=== PATIENT | male | born 1965 | race Caucasian/White ===

== ENCOUNTER 2017-12-14 15:50 | Inpatient (IN) | payer OTHER ==
[~2017-12-14] VITALS: Ht 177.8 cm; Wt 65.9 kg
[2017-12-14 15:57] VITALS: PULSE 68; RESP 18; TEMP 97.5; O2SAT 98
[2017-12-14 17:38] VITALS: BP 144/94; PULSE 71; RESP 16; TEMP 98.7; O2SAT 97
[2017-12-14 18:04] LABS: AUTOMATED NEUTROPHIL # 4.3 TH/MM3 (1.8-7.7); BASOPHIL # 0.1 TH/MM3 (0-0.2); EOSINOPHIL # 0.3 TH/MM3 (0-0.4); EOSINOPHIL % 3.6 % (0.0-4.0); HEMATOCRIT 38.9 % (39.0-51.0); HEMOGLOBIN 13.8 GM/DL (13.0-17.0); LYMPH % 30.6 % (9.0-44.0); LYMPHOCYTE # 2.4 TH/MM3 (1.0-4.8); MEAN CELL VOLUME 96.9 FL (80.0-100.0); MEAN CORPUSCULAR HEMOGLOBIN 34.5 PG (27.0-34.0); MEAN CORPUSCULAR HGB CONC 35.5 % (32.0-36.0); MEAN PLATELET VOLUME 7.8 FL (7.0-11.0); MONO % 8.9 % (0.0-8.0); MONOCYTE # 0.7 TH/MM3 (0-0.9); NEUT % 55.9 % (16.0-70.0); PLATELET COUNT 299 TH/MM3 (150-450); RED BLOOD COUNT 4.01 MIL/MM3 (4.50-5.90); RED CELL DISTRIBUTION WIDTH 14.2 % (11.6-17.2); WHITE BLOOD COUNT 7.8 TH/MM3 (4.0-11.0)
[2017-12-14 18:29] LABS: ALBUMIN 3.7 GM/DL (3.4-5.0); AST (GOT) 20 U/L (15-37); BICARBONATE 28.3 MEQ/L (21.0-32.0); BLOOD UREA NITROGEN 12 MG/DL (7-18); CALCIUM 8.2 MG/DL (8.5-10.1); CHLORIDE 94 MEQ/L (98-107); CREATININE 1.02 MG/DL (0.60-1.30); GLOMERULAR FILTRATION RATE 77 ML/MIN (>89); GLUCOSE,RANDOM 122 MG/DL (74-106); SODIUM (NA) 128 MEQ/L (136-145)
[2017-12-14 18:33] LABS: ALKALINE PHOSPHATASE 65 U/L (45-117); ALT (GPT) 22 U/L (12-78); TOTAL BILIRUBIN ADULT 0.3 MG/DL (0.2-1.0); TOTAL PROTEIN 6.6 GM/DL (6.4-8.2)
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
[2017-12-14 22:30] VITALS: BP 156/85; PULSE 81; RESP 17; TEMP 98.2; O2SAT 99
[2017-12-14] MEDS ORDERED: OLANZapine ODT 10 MG TAB PO ONE (23:00)
[2017-12-14] MEDS ORDERED: ACETAMINOPHEN 325 MG TAB PO PRN (23:15)
[2017-12-14] MEDS ORDERED: ALUMINUM/MAGNESIUM/SIMETH 30 ML CUP PO PRN (23:15)
[2017-12-14] MEDS ORDERED: MAGNESIUM HYDROXIDE SUSP 30 ML CUP PO PRN (23:15)
[2017-12-14] MEDS ORDERED: LORazepam 2 MG/ML VIAL IM PRN (23:15)
[2017-12-14] MEDS ORDERED: traZODone HCL 50 MG TAB PO PRN (23:15)
[2017-12-14] MEDS ORDERED: LORazepam 1 MG TAB PO PRN (23:15)
[2017-12-15 00:12] VITALS: BP 165/93; PULSE 70; RESP 18; TEMP 97; O2SAT 96
[2017-12-15 05:40] VITALS: BP 151/93; PULSE 75; RESP 18; TEMP 96.4; O2SAT 98
[2017-12-15] MEDS: NICOTINE 21 MG/24 HR PATCH T-DERMAL SCH (08:54)
[2017-12-15 09:12] LABS: AUTOMATED NEUTROPHIL # 3.2 TH/MM3 (1.8-7.7); BASOPHIL # 0.1 TH/MM3 (0-0.2); BASOPHIL % 1.3 % (0.0-2.0); EOSINOPHIL # 0.2 TH/MM3 (0-0.4); EOSINOPHIL % 3.5 % (0.0-4.0); HEMATOCRIT 42.7 % (39.0-51.0); HEMOGLOBIN 14.9 GM/DL (13.0-17.0); LYMPH % 24.4 % (9.0-44.0); LYMPHOCYTE # 1.3 TH/MM3 (1.0-4.8); MEAN CORPUSCULAR HEMOGLOBIN 33.8 PG (27.0-34.0); MEAN CORPUSCULAR HGB CONC 34.9 % (32.0-36.0); MONO % 11.4 % (0.0-8.0); MONOCYTE # 0.6 TH/MM3 (0-0.9); NEUT % 59.4 % (16.0-70.0); PLATELET COUNT 298 TH/MM3 (150-450); RED CELL DISTRIBUTION WIDTH 14.5 % (11.6-17.2); WHITE BLOOD COUNT 5.4 TH/MM3 (4.0-11.0)
[2017-12-15 09:50] LABS: BICARBONATE 26.5 MEQ/L (21.0-32.0); BLOOD UREA NITROGEN 10 MG/DL (7-18); CALCIUM 8.8 MG/DL (8.5-10.1); CHLORIDE 101 MEQ/L (98-107); CREATININE 0.81 MG/DL (0.60-1.30); GLOMERULAR FILTRATION RATE 100 ML/MIN (>89); GLUCOSE,RANDOM 108 MG/DL (74-106); MAGNESIUM 2.1 MG/DL (1.5-2.5); SODIUM (NA) 136 MEQ/L (136-145); TRIGLYCERIDES 160 MG/DL (42-150)
[2017-12-15 09:51] LABS: CHOLESTEROL 130 MG/DL (120-200); PHOSPHORUS 3.2 MG/DL (2.5-4.9)
[2017-12-15 09:54] LABS: CHOLESTEROL/ HDL RATIO 3.89 RATIO; HDL CHOLESTEROL 33.4 MG/DL (40.0-60.0); LDL CHOLESTEROL 65 MG/DL (0-99)
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
[2017-12-15 11:43] LABS: FREE T4 1.04 NG/DL (0.76-1.46)
[2017-12-15] MEDS ORDERED: diphenhydrAMINE HCL 50 MG/ML VIAL IM PRN (11:45)
[2017-12-15] MEDS ORDERED: HALOPERIDOL LACTATE 5 MG/ML AMP IM PRN (11:45)
[2017-12-15] MEDS ORDERED: diphenhydrAMINE HCL 50 MG CAP PO PRN (11:45)
[2017-12-15] MEDS ORDERED: HALOPERIDOL 5 MG TAB PO PRN (11:45)
--- NOTE | 2017-12-15 13:57 | PD.PSY.CON ---
Provisional Diagnosis Admission Date Dec 14, 2017 at 23:44 [place] I. 1. Schizophrenia, paranoid type, acute exacerbation [place] II. Deferred History of Present Illness Service Psychiatry Consult Requested By Psychiatry Reason for Consult Second opinion Primary Care Physician Unknown HPI Mr. Aviles is a 52-year-old male with a self-reported history of residual schizophrenia who presents under a [place] act initiated by psychologist patient's facility alleging aggressive behavior and threats to other residents. Reviewing the electronic medical record, I note this is patient's first visit to [facility].Patient seen and examined with nurse. Chart reviewed. Case discussed with nursing staff. On my examination today, the patient presents as paranoid and irritable. He says "it's a big cover up. Reaction after reaction after reaction." Unclear what he is referring to. He tells me "my mind switches off, now and then." Regarding the circumstances of his presentation here, the patient says "I know something stinks." He alleges that 2 "protectors " at his facility, [facility] were verbally aggressive towards him, and this is why he acted out. He reports that his sleep is poor, but he continues to eat and bathe appropriately per patient. Affect is dysphoric and irritable. Thought blocking is present. He appears internally stimulated. The patient is quite discharge focused. Remainder of the psychiatric ROS is negative. Patient is unable to tolerate extended interview and finally says "stop rushing me, I want to go home" and essentially shuts down. No physical complaints.Past psychiatric history: Patient reports a history of residual schizophrenia. He reportedly follows with a Dr. Sanchez but says that he is prescribed only Naproxen. I see no med rec from facility on patient's chart. He cannot tell me if he has a history of previous psychiatric admissions or suicide attempts. The patient is a 52-year-old man, "domiciled with friends", unemployed , single, with psychiatric history of self reported residential schizophrenia, previous psychiatric hospitalizations, no previous suicidal attempts, no psychotropics, no significant medical history, who was brought to the hospital under [place] act with alligation that the patient has been aggressive with other residents. Patient was consulted to me for second opinion. On psychiatric evaluation the patient seems to be guarded, irritable, superficially cooperative. Patient says that the reason he is here is because he has been hallucinating. He does not elaborate about the content of hallucination stating that he doesn't have memories of them. At this moment he denies suicidal and homicidal ideation, he denies visual and auditory hallucinations, but patient is visibly internally preoccupied and paranoid. Review of Systems Endocrine: DENIES: Heat/cold intolerance, Polydipsia, Polyuria, Polyphagia Eyes: DENIES: Blurred vision, Diplopia, Eye inflammation, Eye pain, Vision loss , Photosensitivity, Double Vision Ears, nose, mouth, throat: DENIES: Tinnitus, Hearing loss, Vertigo, Nasal discharge, Oral lesions, Throat pain, Hoarseness, Ear Pain, Running Nose, Epistaxis, Sinus Pain, Toothache, Odynophagia Respiratory: DENIES: Apneas, Cough, Snoring, Wheezing, Hemoptysis, Sputum production, Shortness of breath Cardiovascular: DENIES: Chest pain, Palpitations, Syncope, Dyspnea on Exertion , PND, Lower Extremity Edema, Orthopnea, Claudication Gastrointestinal: DENIES: Abdominal pain, Black stools, Bloody stools, Constipation, Diarrhea, Nausea, Vomiting, Difficulty Swallowing, Anorexia Genitourinary: DENIES: Sexual dysfunction, Urinary frequency, Urinary incontinence, Urgency, Hematuria, Dysuria, Nocturia, Penile Discharge, Testicular Pain, Testicular Swelling Musculoskeletal: DENIES: Joint pain, Muscle aches, Stiffness, Joint Swelling, Back pain, Neck pain Integumentary: DENIES: Abnormal pigmentation, Nail changes, Pruritus, Rash Hematologic/lymphatic: DENIES: Bruising, Lymphadenopathy Immunologic/allergic: DENIES: Eczema, Urticaria Neurologic: DENIES: Abnormal gait, Headache, Localized weakness, Paresthesias, Seizures, Speech Problems, Tremor, Poor Balance Psychiatric: COMPLAINS OF: Hallucinations, Delusions, DENIES: Anxiety, Confusion, Mood changes, Depression, Agitation, Suicidal Ideation, Homicidal Ideation Past Family Social History Coded Allergies: No Known Allergies (Verified Allergy, Unknown, 12/14/17) Unable to Assess (Verified Allergy, Unknown, 12/14/17) No Active Prescriptions or Reported Meds Current Medications Medications (Trade) Dose Ordered Sig/Rafat Route Start Time Stop Time Status Last Admin (Ativan) 1 mg Q6H PRN PO 12/14/17 23:15 (Ativan Inj) 1 mg Q6H PRN IM 12/14/17 23:15 (Tylenol) 650 mg Q4H PRN PO 12/14/17 23:15 (Milk Of Magnesia Liq) 30 ml DAILY PRN PO 12/14/17 23:15 (Mag-Al Plus Susp Liq) 30 ml Q6H PRN PO 12/14/17 23:15 (Habitrol 21 Mg Patch.24 Hr) 1 patch DAILY T-DERMAL 12/15/17 09:00 12/15/17 08:54 Miscellaneous Information 1 HS T-DERMAL 12/15/17 21:00 (Haldol) 5 mg Q6H PRN PO 12/15/17 11:45 (Haldol Inj) 5 mg Q6H PRN IM 12/15/17 11:45 (Benadryl) 50 mg Q6H PRN PO 12/15/17 11:45 (Benadryl Inj) 50 mg Q6H PRN IM 12/15/17 11:45 Family Psych History He denies family psychiatric history Social History Patient was born and raised in [place], he lives in [place], unemployed, single, highest level of education is has Patient's Strengths (min. 2) In a monitored setting. Verbally fluent. Physical Exam Vital Signs Vital Signs Date Time Temp Pulse Resp B/P (MAP) Pulse Ox O2 Delivery O2 Flow Rate FiO2 12/15/17 05:40 96.4 75 18 151/93 (112) 98 12/14/17 22:30 Room Air Lab Results Test 12/14/17 16:45 12/15/17 08:35 White Blood Count 7.8 TH/MM3 5.4 TH/MM3 Red Blood Count 4.01 MIL/MM3 4.40 MIL/MM3 Hemoglobin 13.8 GM/DL 14.9 GM/DL Hematocrit 38.9 % 42.7 % Mean Corpuscular Volume 96.9 FL 97.0 FL Mean Corpuscular Hemoglobin 34.5 PG 33.8 PG Mean Corpuscular Hemoglobin Concent 35.5 % 34.9 % Red Cell Distribution Width 14.2 % 14.5 % Platelet Count 299 TH/MM3 298 TH/MM3 Mean Platelet Volume 7.8 FL 7.0 FL Neutrophils (%) (Auto) 55.9 % 59.4 % Lymphocytes (%) (Auto) 30.6 % 24.4 % Monocytes (%) (Auto) 8.9 % 11.4 % Eosinophils (%) (Auto) 3.6 % 3.5 % Basophils (%) (Auto) 1.0 % 1.3 % Neutrophils # (Auto) 4.3 TH/MM3 3.2 TH/MM3 Lymphocytes # (Auto) 2.4 TH/MM3 1.3 TH/MM3 Monocytes # (Auto) 0.7 TH/MM3 0.6 TH/MM3 Eosinophils # (Auto) 0.3 TH/MM3 0.2 TH/MM3 Basophils # (Auto) 0.1 TH/MM3 0.1 TH/MM3 CBC Comment DIFF FINAL DIFF FINAL Differential Comment Blood Urea Nitrogen 12 MG/DL 10 MG/DL Creatinine 1.02 MG/DL 0.81 MG/DL Random Glucose 122 MG/DL 108 MG/DL Total Protein 6.6 GM/DL Albumin 3.7 GM/DL Calcium Level 8.2 MG/DL 8.8 MG/DL Alkaline Phosphatase 65 U/L Aspartate Amino Transf (AST/SGOT) 20 U/L Alanine Aminotransferase (ALT/SGPT) 22 U/L Total Bilirubin 0.3 MG/DL Sodium Level 128 MEQ/L 136 MEQ/L Potassium Level 3.8 MEQ/L 4.2 MEQ/L Chloride Level 94 MEQ/L 101 MEQ/L Carbon Dioxide Level 28.3 MEQ/L 26.5 MEQ/L Anion Gap 6 MEQ/L 9 MEQ/L Estimat Glomerular Filtration Rate 77 ML/MIN 100 ML/MIN Urine Opiates Screen NEG Urine Barbiturates Screen NEG Urine Amphetamines Screen NEG Urine Benzodiazepines Screen NEG Urine Cocaine Screen NEG Urine Cannabinoids Screen NEG Phosphorus Level 3.2 MG/DL Magnesium Level 2.1 MG/DL Uric Acid 4.4 MG/DL Total Creatine Kinase 137 U/L Triglycerides Level 160 MG/DL Cholesterol Level 130 MG/DL LDL Cholesterol 65 MG/DL HDL Cholesterol 33.4 MG/DL Cholesterol/HDL Ratio 3.89 RATIO Vitamin B12 Level 639 PG/ML 25-Hydroxy Vitamin D Total 18.4 ng/ML Free Thyroxine 1.04 NG/DL Thyroid Stimulating Hormone 3rd Gen 2.210 uIU/ML Rapid Plasma Reagin NON-REACTIVE Mental Status Examination Appearance: Disheveled Consciousness: Alert, Vigilant Orientation: Person, Place, Date/Time (approximate) Motor Activity: Normal gait Speech: Slow Language: Adequate Fund of Knowledge: Adequate Attention and Concentration: Easily Distracted Memory: Unremarkable Mood: Irritable, Other (Dysphoric) Affect: Irritable, Other (Dysphoric, restricted) Thought Process & Associations: Linear Thought Content: Thought blocking Hallucination Type: Other (Appears int stim) Delusion Type: Paranoid Suicidal Ideation: No Suicidal Plan: No Suicidal Intention: No Homicidal Ideation: No Homicidal Plan: No Homicidal Intention: No Insight: Fair Judgment: Impulsive Assessment & Plan Problem List: (1) Paranoid schizophrenia ICD Codes: F20.0 - Paranoid schizophrenia Assessment & Plan: Patient was seen and examined for second opinion. Chart was reviewed. I completely agree and concur with Dr. Sepulveda assessment and plan. Assessment & Plan Estimated LOS: days Request HC Surrog/Guard Advoc?: Yes Israel Forbes MD Dec 15, 2017 13:57
--- NOTE | 2017-12-15 15:04 | EKG ---
Date Performed: 12/15/2017 Time Performed: 13:13:12 PTAGE: 52 years EKG: Sinus rhythm POSSIBLE LEFT ATRIAL ENLARGEMENT BORDERLINE ECG NO PREVIOUS TRACING DOCTOR: Gilberto Garcia Interpretating Date/Time 12/15/2017 15:03:24
[2017-12-15] MEDS ORDERED: NAPROXEN 500 MG TAB PO PRN (15:45)
[2017-12-15 16:25] LABS: HEMOGLOBIN A1C 5.2 % (4.3-6.0)
[2017-12-15] MEDS: METOPROLOL SUCCINATE 50 MG EXTENDED RELEASE TAB PO SCH (16:25)
[2017-12-15 17:55] VITALS: BP 160/100; PULSE 82; RESP 18; TEMP 98.4; O2SAT 97
[2017-12-15] MEDS: risperiDONE 3 MG TAB PO SCH (21:00)
[2017-12-15] MEDS: DIVALPROEX SODIUM E.R. 500 MG TAB PO SCH (21:00)
[2017-12-15] MEDS: REMOVE OLD NICOTINE PATCH T-DERMAL SCH (21:00)
[2017-12-16 05:53] VITALS: BP 132/78; PULSE 56; RESP 16; TEMP 98.2; O2SAT 96
[2017-12-16] MEDS: METOPROLOL SUCCINATE 50 MG EXTENDED RELEASE TAB PO SCH (08:05)
[2017-12-16] MEDS: NICOTINE 21 MG/24 HR PATCH T-DERMAL SCH (08:06)
--- NOTE | 2017-12-16 12:23 | HHI.PYPN ---
Subjective Chief Complaint: Psychosis/aggression Remarks Patient seen and examined with nurse, nursing students and counselor. Chart reviewed. Eating and sleeping well per notes. Case discussed with nurse who reports no behavioral issues overnight. Case discussed with counselor, occupational therapist and recreational therapist in treatment team. On my examination today, the patient remains quite paranoid. He misinterprets my natural hand gestures during conversation as being somehow threatening. He appears internally stimulated. Makes odd comments like "that's hilarious" when nothing funny has been said and "am I supposed to be Ke?" Psychotropic medications are on hold for lack of consent. The patient at my request provides telephone number for his mother Kathryn [phone], but the nurse tells me that she has already tried this number without success. No physical complaints. Review of Systems ROS Limitations: Psychotic, Poor Historian Except as stated in HPI: all other systems reviewed are Neg Mental Status Examination Appearance: Disheveled Consciousness: Alert, Vigilant Orientation: Person, Place (at least) Motor Activity: Normal gait, Other (no motor abnormalities noted) Speech: Slow Language: Adequate Fund of Knowledge: Adequate Attention and Concentration: Easily Distracted Memory: Unremarkable Mood: Irritable, Other (Dysphoric) Affect: Irritable, Other (restricted) Thought Process & Associations: Circumstantial Thought Content: Hallucinations, Thought blocking, Delusional Hallucination Type: Other (remains internally stimulated) Delusion Type: Bizarre, Paranoid Suicidal Ideation: No Suicidal Plan: No Suicidal Intention: No Homicidal Ideation: No Homicidal Plan: No Homicidal Intention: No Insight: Poor Judgment: Poor Results Labs Item Value Date Time White Blood Count 5.4 TH/MM3 12/15/17 0835 Hemoglobin 14.9 GM/DL 12/15/17 0835 Platelet Count 298 TH/MM3 12/15/17 0835 Sodium Level 136 MEQ/L 12/15/17 0835 Potassium Level 4.2 MEQ/L 12/15/17 0835 Chloride Level 101 MEQ/L 12/15/17 0835 Carbon Dioxide Level 26.5 MEQ/L 12/15/17 0835 Blood Urea Nitrogen 10 MG/DL 12/15/17 0835 Creatinine 0.81 MG/DL 12/15/17 0835 Estimat Glomerular Filtration Rate 100 ML/MIN 12/15/17 0835 Random Glucose 108 MG/DL H 12/15/17 0835 Hemoglobin A1c 5.2 % 12/15/17 0835 Total Creatine Kinase 137 U/L 12/15/17 0835 Vitamin B12 Level 639 PG/ML 12/15/17 0835 25-Hydroxy Vitamin D Total 18.4 ng/ML L 12/15/17 0835 Free Thyroxine 1.04 NG/DL 12/15/17 0835 Thyroid Stimulating Hormone 3rd Gen 2.210 uIU/ML 12/15/17 0835 Rapid Plasma Reagin NON-REACTIVE 12/15/17 0835 Labs reviewed. CBC and CMP unremarkable. Vitamin D level somewhat low. Vitals/IOs Vital Signs Date Time Temp Pulse Resp B/P (MAP) Pulse Ox O2 Delivery O2 Flow Rate FiO2 12/16/17 05:53 98.2 56 16 132/78 (96) 96 12/14/17 22:30 Room Air Assessment & Plan Problem List: (1) Paranoid schizophrenia ICD Codes: F20.0 - Paranoid schizophrenia Assessment & Plan Add vitamin D supplement. Nurse and counselor to continue to try to identify someone to act as HCS for med consents. If no healthcare surrogate can be found , we may be forced await for guardian advocate to be appointed [place] [address] next . Continue to monitor on the high acuity unit. Continue other medications and care as ordered. Justification for Cont. Inpt. Impairment in reality construction. High risk for decompensation in less restrictive environment. Discharge Planning Pending psychiatric stabilization. Request HC Surrog/Guard Advoc?: Yes Filipe Sepulveda MD Dec 16, 2017 12:23
--- NOTE | 2017-12-16 14:02 | PD.TTN ---
Patient Problems 1. Discharge planning 2. Medication compliance 3. Knowledge deficit 4. Lack of coping skills Progress Toward Goals Provider Present: Dr. Tabitha Sepulveda Provider Input: Pt remains psychotic and paranoid. Medication regiment is on hold as there is no one to consent for his medication at this time. Nurse(s) Present: Sarah Sexton RN Nurse(s) Input: Pt remains paranoid, easily agitated and withdrawn to self. Psychiatric Counselors Present: VONNIE Khan Psych Therapist Input: Pt appears paranoid, psychotic, easily agitated and with poor insight into condition. Pt is not on medication at this time due to lack of person to consent. He presents with limited coping and emotional regulation skills. He will be evaluated for return to [facility] by facility. Group Spec/RT/OT/MEJIA Present: DAYAN Mcdonnell Group Spec/RT/OT/MEJIA Input: Pt is a new admission. Discharge Plan SMA Pt will be evaluated by [facility] for possible return. He will be linked with outpatient follow up services. Documentation Scribe: VONNIE Khan Jonathan LMHC Dec 16, 2017 14:02
[2017-12-16 18:03] VITALS: BP 157/99; PULSE 72; RESP 17; TEMP 98.7; O2SAT 97
[2017-12-16] MEDS: REMOVE OLD NICOTINE PATCH T-DERMAL SCH (20:23)
[2017-12-17 06:05] VITALS: BP 128/87; PULSE 71; RESP 18; TEMP 98.5; O2SAT 96
[2017-12-17] MEDS: CHOLECALCIFEROL (VIT D3) 1000 UNIT TAB PO SCH (08:21)
[2017-12-17] MEDS: METOPROLOL SUCCINATE 50 MG EXTENDED RELEASE TAB PO SCH (08:21)
[2017-12-17] MEDS: NICOTINE 21 MG/24 HR PATCH T-DERMAL SCH (08:21)
--- NOTE | 2017-12-17 13:27 | HHI.PYPN ---
Subjective Chief Complaint: Psychosis/aggression Remarks Patient was seen and case discussed with nursing. Patient is not on any medications now pending proxy for consent. Patient is blunted and irritable during the interview. He purposely flatulates very loudly during the interview. Denies any psychotic symptoms. Insight is poor. Mental Status Examination Appearance: Disheveled Consciousness: Alert, Vigilant Orientation: Person, Place (at least) Motor Activity: Normal gait, Other (no motor abnormalities noted) Speech: Slow Language: Adequate Fund of Knowledge: Adequate Attention and Concentration: Easily Distracted Memory: Unremarkable Mood: Irritable, Other (Dysphoric) Affect: Irritable, Blunt Thought Process & Associations: Circumstantial Thought Content: Hallucinations, Thought blocking, Delusional Hallucination Type: Other (remains internally stimulated) Delusion Type: Paranoid Suicidal Ideation: No Suicidal Plan: No Suicidal Intention: No Homicidal Ideation: No Homicidal Plan: No Homicidal Intention: No Insight: Poor Judgment: Poor Results Vitals/IOs Vital Signs Date Time Temp Pulse Resp B/P (MAP) Pulse Ox O2 Delivery O2 Flow Rate FiO2 12/17/17 06:05 98.5 71 18 128/87 (101) 96 12/14/17 22:30 Room Air Assessment & Plan Problem List: (1) Paranoid schizophrenia ICD Codes: F20.0 - Paranoid schizophrenia Assessment & Plan Continue current treatment plan Justification for Cont. Inpt. Patient will decompensate in a less restrictive setting Request HC Surrog/Guard Advoc?: Yes David Decker DO Dec 17, 2017 13:27
[2017-12-17 18:28] VITALS: BP 148/95; PULSE 77; RESP 18; TEMP 97.9; O2SAT 98
[2017-12-17] MEDS: REMOVE OLD NICOTINE PATCH T-DERMAL SCH (20:27)
[2017-12-18 05:57] VITALS: BP 124/88; PULSE 61; RESP 16; TEMP 97.1; O2SAT 98
[2017-12-18] MEDS: CHOLECALCIFEROL (VIT D3) 1000 UNIT TAB PO SCH (08:34)
[2017-12-18] MEDS: NICOTINE 21 MG/24 HR PATCH T-DERMAL SCH (08:34)
[2017-12-18] MEDS: METOPROLOL SUCCINATE 50 MG EXTENDED RELEASE TAB PO SCH (08:34)
--- NOTE | 2017-12-18 15:14 | HHI.PYPN ---
Subjective Chief Complaint: Psychosis/aggression Remarks Patient was seen and case discussed with nursing. Patient remains oppositional , childlike, quite irritable. He he reflects any questions asked of him on me does his best to insult me. Internally preoccupied. Disheveled Mental Status Examination Appearance: Disheveled Consciousness: Alert, Vigilant Orientation: Person, Place (at least) Motor Activity: Normal gait, Other (no motor abnormalities noted) Speech: Slow Language: Adequate Fund of Knowledge: Adequate Attention and Concentration: Easily Distracted Memory: Unremarkable Mood: Irritable, Other (Dysphoric) Affect: Irritable, Blunt Thought Process & Associations: Loose associations Thought Content: Hallucinations, Thought blocking, Delusional Hallucination Type: Other (remains internally stimulated) Delusion Type: Paranoid Suicidal Ideation: No Suicidal Plan: No Suicidal Intention: No Homicidal Ideation: No Homicidal Plan: No Homicidal Intention: No Insight: Poor Judgment: Poor Results Vitals/IOs Vital Signs Date Time Temp Pulse Resp B/P (MAP) Pulse Ox O2 Delivery O2 Flow Rate FiO2 12/18/17 05:57 97.1 61 16 124/88 (100) 98 12/14/17 22:30 Room Air Assessment & Plan Problem List: (1) Paranoid schizophrenia ICD Codes: F20.0 - Paranoid schizophrenia Assessment & Plan Continue current treatment plan Justification for Cont. Inpt. Patient would decompensate in a less restrictive setting Request HC Surrog/Guard Advoc?: Yes David Decker DO Dec 18, 2017 15:14
[2017-12-18 18:21] VITALS: BP 115/63; PULSE 63; RESP 16; TEMP 97.6; O2SAT 98
[2017-12-18] MEDS: REMOVE OLD NICOTINE PATCH T-DERMAL SCH (20:11)
[2017-12-19 05:52] VITALS: BP 143/94; PULSE 67; RESP 16; TEMP 96.7; O2SAT 96
[2017-12-19] MEDS: NICOTINE 21 MG/24 HR PATCH T-DERMAL SCH (08:53)
[2017-12-19] MEDS: CHOLECALCIFEROL (VIT D3) 1000 UNIT TAB PO SCH (08:53)
[2017-12-19] MEDS: METOPROLOL SUCCINATE 50 MG EXTENDED RELEASE TAB PO SCH (08:53)
--- NOTE | 2017-12-19 12:03 | HHI.PYPN ---
Subjective Chief Complaint: Psychosis/aggression Remarks Patient seen and examined with nurse. Chart reviewed. Oral intake is spotty. Patient also noted to be requesting a lot of coffee. Case discussed with nursing staff. On my exam, patient is paranoid, disheveled, malodorous. He appears internally stimulated and giggles inappropriately at times. When I ask him about internal stimulation he asks me and return "doesn't God make people [ hallucinate]?" He denies SI/HI. Psychotropics on hold for lack of consent. No physical complaints. Patient is unable to provide any other numbers for possible HCS when asked. Review of Systems ROS Limitations: Psychotic, Poor Historian Except as stated in HPI: all other systems reviewed are Neg Mental Status Examination Appearance: Disheveled Consciousness: Alert, Vigilant Orientation: Person, Place Motor Activity: Normal gait, Other (no motor abnormalities noted) Speech: Slow Language: Adequate Fund of Knowledge: Adequate Attention and Concentration: Easily Distracted Memory: Unremarkable Mood: Irritable, Other (remains somewhat dysphoric) Affect: Irritable, Blunt, Other (giggles inappropriately at times) Thought Process & Associations: Loose associations Thought Content: Hallucinations, Thought blocking, Delusional Hallucination Type: Auditory (appears internally stimulated) Delusion Type: Paranoid Suicidal Ideation: No Suicidal Plan: No Suicidal Intention: No Homicidal Ideation: No Homicidal Plan: No Homicidal Intention: No Insight: Poor Judgment: Poor Results Labs Labs reviewed. No new labs. Vitals/IOs Vital Signs Date Time Temp Pulse Resp B/P (MAP) Pulse Ox O2 Delivery O2 Flow Rate FiO2 12/19/17 05:52 96.7 67 16 143/94 (110) 96 Assessment & Plan Problem List: (1) Paranoid schizophrenia ICD Codes: F20.0 - Paranoid schizophrenia Assessment & Plan Dietitian consult given poor oral intake. I will also check an updated BMP to ensure that the patient is not experiencing electrolyte abnormalities because of fluid consumption. If there is evidence of electrolyte abnormality, may institute fluid restriction. Awaiting healthcare surrogate to provide consent for psychotropics. Continue to monitor on an inpatient unit. Continue other medications and care as ordered. Justification for Cont. Inpt. Impairment in reality construction. High risk for decompensation in less restrictive environment. Discharge Planning Pending psychiatric stabilization. Request HC Surrog/Guard Advoc?: Yes Filipe Sepulveda MD Dec 19, 2017 12:03
[2017-12-19 17:14] VITALS: BP 144/89; PULSE 71; RESP 16; TEMP 98.9; O2SAT 96
[2017-12-19] MEDS: REMOVE OLD NICOTINE PATCH T-DERMAL SCH (21:00)
[2017-12-20 05:48] VITALS: BP 113/74; PULSE 58; RESP 18; TEMP 98.5; O2SAT 100
[2017-12-20] MEDS: METOPROLOL SUCCINATE 50 MG EXTENDED RELEASE TAB PO SCH (09:00)
[2017-12-20] MEDS: CHOLECALCIFEROL (VIT D3) 1000 UNIT TAB PO SCH (09:00)
[2017-12-20] MEDS: NICOTINE 21 MG/24 HR PATCH T-DERMAL SCH (09:00)
--- NOTE | 2017-12-20 13:42 | HHI.PYPN ---
Subjective Chief Complaint: Psychosis/aggression Remarks Patient seen and examined with nurse. Chart reviewed. Patient ate 100% of lunch and dinner yesterday. Case discussed with nursing staff and in treatment team. Still no one available to provide consent for medications. On my examination today, patient remains paranoid and irritable. He refuses extended interview saying "I retain the right to remain silent, and I am exercising that Goddamn right!" He remains internally stimulated. No physical complaints. Review of Systems ROS Limitations: Psychotic, Poor Historian Except as stated in HPI: all other systems reviewed are Neg Mental Status Examination Appearance: Disheveled Consciousness: Alert, Vigilant Orientation: Person, Place Motor Activity: Other (no abnormal motor movements noted) Speech: Slow Language: Adequate Fund of Knowledge: Adequate Attention and Concentration: Easily Distracted Memory: Unremarkable Mood: Irritable, Other (dysphoric) Affect: Irritable, Other (restricted) Thought Process & Associations: Loose associations Thought Content: Hallucinations, Thought blocking, Delusional Hallucination Type: Auditory (remains internally stimulated) Delusion Type: Paranoid Suicidal Ideation: No (unreliable to contract for safety) Homicidal Ideation: No (unreliable contract for safety) Insight: Poor Judgment: Poor Results Labs labs are reviewed. Awaiting BMP ordered for today. Vitals/IOs Vital Signs Date Time Temp Pulse Resp B/P (MAP) Pulse Ox O2 Delivery O2 Flow Rate FiO2 12/20/17 05:48 98.5 58 18 113/74 (87) 100 Assessment & Plan Problem List: (1) Paranoid schizophrenia ICD Codes: F20.0 - Paranoid schizophrenia Assessment & Plan Psychotropics remain on hold for lack of anyone to provide consent. Dietitian input noted and appreciated, and I have adjusted the patient's diet per recommendations. Follow-up BMP. Continue to monitor on the inpatient unit. Continue other medications and care as ordered. Justification for Cont. Inpt. Impairment in reality construction. High risk for decompensation in less restrictive environment. Discharge Planning Plan to initiate medications after [place] is appointed a [place] [facility]. Disposition pending psychiatric stabilization after that. Request HC Surrog/Guard Advoc?: Yes Filipe Sepulveda MD Dec 20, 2017 13:42
[2017-12-20 18:46] VITALS: BP 95/58; PULSE 61; RESP 18; TEMP 98.7; O2SAT 99
[2017-12-20] MEDS: REMOVE OLD NICOTINE PATCH T-DERMAL SCH (21:00)
[2017-12-20] MEDS: OLANZapine IM 10 MG VIAL IM ONE ×2 (23:32→23:40)
[2017-12-20] MEDS ORDERED: OLANZapine IM 10 MG VIAL IM SCH (23:45)
[2017-12-21 06:16] VITALS: BP 96/56; PULSE 55; RESP 18; TEMP 97.9; O2SAT 97
[2017-12-21] MEDS: NICOTINE 21 MG/24 HR PATCH T-DERMAL SCH (09:00)
[2017-12-21] MEDS: METOPROLOL SUCCINATE 50 MG EXTENDED RELEASE TAB PO SCH (09:00)
[2017-12-21] MEDS: CHOLECALCIFEROL (VIT D3) 1000 UNIT TAB PO SCH (09:00)
--- NOTE | 2017-12-21 09:56 | HHI.PYPN ---
Subjective Chief Complaint: Psychosis/aggression Remarks Patient seen and examined with nurse. Chart reviewed. Case discussed with nursing staff. Patient required ETO yesterday evening for agitation. On my examination this morning, patient is feigning sleep. He was noted to be up and ambulating around the unit by nursing staff shortly before my interview, and shortly after the interview I find the patient up and ambulating the unit. He appears to be in no physical distress but remains internally stimulated. Review of Systems ROS Limitations: Uncooperative Other Limited ROS, patient uncooperative. Mental Status Examination Appearance: Disheveled Consciousness: Other (feigning sleep) Motor Activity: Other (no motor abnormalities noted) Insight: Poor Judgment: Poor Mental Status Exam Remarks Limited MSE as patient is feigning sleep Results Labs Item Value Date Time Sodium Level 137 MEQ/L 12/21/17 1008 Potassium Level 4.0 MEQ/L 12/21/17 1008 Chloride Level 99 MEQ/L 12/21/17 1008 Carbon Dioxide Level 32.0 MEQ/L 12/21/17 1008 Anion Gap 6 MEQ/L 12/21/17 1008 Blood Urea Nitrogen 16 MG/DL 12/21/17 1008 Creatinine 0.83 MG/DL 12/21/17 1008 Estimat Glomerular Filtration Rate 98 ML/MIN 12/21/17 1008 Random Glucose 63 MG/DL L 12/21/17 1008 Labs reviewed. BMP unremarkable except for mildly low glucose. Vitals/IOs Vital Signs Date Time Temp Pulse Resp B/P (MAP) Pulse Ox O2 Delivery O2 Flow Rate FiO2 12/21/17 06:16 97.9 55 18 96/56 (69) 97 Assessment & Plan Problem List: (1) Paranoid schizophrenia ICD Codes: F20.0 - Paranoid schizophrenia Assessment & Plan Scheduled psychotropics on hold for lack of consent. Continue to monitor on the inpatient unit. Continue other medications and care as ordered. Justification for Cont. Inpt. High risk for decompensation in less restrictive environment. Discharge Planning Pending psychiatric stabilization. [address] [facility] tomorrow. Request HC Surrog/Guard Advoc?: Yes Filipe Sepulveda MD Dec 21, 2017 09:56
[2017-12-21 12:17] LABS: CALCIUM 8.9 MG/DL (8.5-10.1); CREATININE 0.83 MG/DL (0.60-1.30)
--- NOTE | 2017-12-21 13:23 | PD.TTN ---
Patient Problems 1. Discharge planning 2. Medication compliance 3. Knowledge deficit 4. Lack of coping skills Progress Toward Goals Provider Present: Dr. Tabitha Sepulveda Provider Input: Pt remains psychotic and paranoid. Medication regiment is on hold as there is no one to consent for his medication at this time. 12/20- Pt has not been on any medication to this point as there has been no one to consent to his medications. He will attend [place] [employer] [facility] and obtain a GA. Nurse(s) Present: Sarah Sexton RN Nurse(s) Input: Pt remains paranoid, easily agitated and withdrawn to self. 12/20- Shari Fernandez RN Pt is very seclusive, demanding and psychotic with no medication at this point. Psychiatric Counselors Present: VONNIE Khan Psych Therapist Input: Pt appears paranoid, psychotic, easily agitated and with poor insight into condition. Pt is not on medication at this time due to lack of person to consent. He presents with limited coping and emotional regulation skills. He will be evaluated for return to [facility] by facility. 12/20- Pt continues to appear psychotic, bizarre, easily agitated and withdrawn. Pt is not currently on medication. He presents with limited coping and emotional regulation skills. He is poorly engaged in treatment. Pt appears with limited insight into condition and need for care. Pt will likely return to [facility] after discharge. Group Spec/RT/OT/MEJIA Present: DAYAN Mcdonnell Group Spec/RT/OT/MEJIA Input: Pt is a new admission. Discharge Plan SMA Pt will be evaluated by [facility] for possible return. He will be linked with outpatient follow up services. Documentation Scribe: VONNIE Khan Jonathan LMHC Dec 21, 2017 13:23
[2017-12-21 17:22] VITALS: BP 110/67; PULSE 62; RESP 16; TEMP 98.4; O2SAT 96
[2017-12-21] MEDS: REMOVE OLD NICOTINE PATCH T-DERMAL SCH (20:43)
[2017-12-22 05:41] VITALS: BP 116/71; PULSE 97; RESP 20; TEMP 97.9; O2SAT 97
[2017-12-22] MEDS: CHOLECALCIFEROL (VIT D3) 1000 UNIT TAB PO SCH (09:51)
[2017-12-22] MEDS: METOPROLOL SUCCINATE 50 MG EXTENDED RELEASE TAB PO SCH (09:51)
[2017-12-22] MEDS: NICOTINE 21 MG/24 HR PATCH T-DERMAL SCH (09:52)
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
[2017-12-22 17:15] VITALS: BP 104/62; PULSE 59; RESP 18; TEMP 98.7; O2SAT 99
[2017-12-22] MEDS: REMOVE OLD NICOTINE PATCH T-DERMAL SCH (19:51)
[2017-12-22] MEDS: risperiDONE 3 MG TAB PO SCH (19:52)
[2017-12-22] MEDS: DIVALPROEX SODIUM E.R. 500 MG TAB PO SCH (19:52)
[2017-12-23 06:01] VITALS: BP 106/71; PULSE 66; RESP 16; TEMP 96.4; O2SAT 97
[2017-12-23] MEDS: risperiDONE 3 MG TAB PO SCH ×2 (08:27→20:18)
[2017-12-23] MEDS: NICOTINE 21 MG/24 HR PATCH T-DERMAL SCH (08:27)
[2017-12-23] MEDS: CHOLECALCIFEROL (VIT D3) 1000 UNIT TAB PO SCH (08:27)
[2017-12-23] MEDS: METOPROLOL SUCCINATE 50 MG EXTENDED RELEASE TAB PO SCH (08:27)
--- NOTE | 2017-12-23 13:30 | HHI.PYPN ---
Subjective Chief Complaint: Psychosis/aggression Remarks Patient seen and examined with nurse. Chart reviewed. Case discussed with nursing staff. Patient noted to be somewhat bizarre and irritable. He is compliant with psychotropics which were recently resumed once a guardian advocate was appointed. Case discussed in treatment team. On my examination today, patient is secluding in his room. He remains quite paranoid and internally stimulated. He is indeed irritable. He is unable to tolerate extended interview and sends us away after only a brief time. Denies side effects from medications. No physical complaints. Review of Systems ROS Limitations: Psychotic, Poor Historian Except as stated in HPI: all other systems reviewed are Neg Mental Status Examination Appearance: Disheveled Consciousness: Alert, Vigilant Orientation: Person (at least) Motor Activity: Other (no motor abnormalities noted) Speech: Unremarkable Language: Adequate Fund of Knowledge: Inadequate Attention and Concentration: Easily Distracted Memory: Impaired (psychosis interferes) Mood: Angry Affect: Other (restricted) Thought Process & Associations: Linear (limited sample but generally linear) Thought Content: Delusional Hallucination Type: Other (remains internally stimulated) Delusion Type: Paranoid Suicidal Ideation: No (no SI voiced) Homicidal Ideation: No (no HI voiced) Insight: Poor Judgment: Poor Results Labs Labs reviewed. No new labs. Vitals/IOs Vital Signs Date Time Temp Pulse Resp B/P (MAP) Pulse Ox O2 Delivery O2 Flow Rate FiO2 12/23/17 06:01 96.4 66 16 106/71 (83) 97 Assessment & Plan Problem List: (1) Paranoid schizophrenia ICD Codes: F20.0 - Paranoid schizophrenia Assessment & Plan Continue Risperdal and Depakote as ordered. To consider long-acting injectable antipsychotic. Plan to check a Depakote and ammonia level next week. Continue to monitor on the high acuity unit. Continue other medications and care as ordered. Justification for Cont. Inpt. Impairment in reality construction. Risk for decompensation in less restrictive environment. Discharge Planning Pending psychiatric stabilization. Return to facility once stable. Request HC Surrog/Guard Advoc?: Yes Filipe Sepulveda MD Dec 23, 2017 13:30
--- NOTE | 2017-12-23 13:55 | PD.TTN ---
Patient Problems 1. Discharge planning 2. Medication compliance 3. Knowledge deficit 4. Lack of coping skills Progress Toward Goals Provider Present: Dr. Tabitha Sepulveda Provider Input: Pt remains psychotic and paranoid. Medication regiment is on hold as there is no one to consent for his medication at this time. 12/20- Pt has not been on any medication to this point as there has been no one to consent to his medications. He will attend [place] [address] and obtain a GA. 12/23- Pt has been resumed on his medication regiment including Risperdal and Depakote. He will be considered for a long acting injection. Nurse(s) Present: Sarah Sexton RN Nurse(s) Input: Pt remains paranoid, easily agitated and withdrawn to self. 12/20- Shari Fernandez RN Pt is very seclusive, demanding and psychotic with no medication at this point. 12/23- Abbie Mayorga RN Pt has been compliant with medication regiment today but remains irritable, withdrawn and psychotic. Psychiatric Counselors Present: Taras Jackson [facility] Psych Therapist Input: Pt appears paranoid, psychotic, easily agitated and with poor insight into condition. Pt is not on medication at this time due to lack of person to consent. He presents with limited coping and emotional regulation skills. He will be evaluated for return to [facility] by facility. 12/23- Pt remains psychotic, easily agitated, withdrawn, seclusive, guarded and uncooperative. Pt appears with limited coping and emotional regulation skills. Pt has limited insight into condition and need for care. He has been mainly noncompliant with medication regiment. He will return to [facility] after discharge. 12/20- Pt continues to appear psychotic, bizarre, easily agitated and withdrawn. Pt is not currently on medication. He presents with limited coping and emotional regulation skills. He is poorly engaged in treatment. Pt appears with limited insight into condition and need for care. Pt will likely return to [facility] after discharge. Group Spec/RT/OT/MEJIA Present: Keerthi Otero, DAYAN, ROBERTO Everett Group Spec/RT/OT/MEJIA Input: Pt is a new admission. 12/23- ROBERTO Everett Pt does not attend groups. Discharge Plan SMA Pt will be evaluated by [facility] for possible return. He will be linked with outpatient follow up services. Documentation Scribe: Taras Jackson Taras Braden LM Dec 23, 2017 13:55
[2017-12-23 18:44] VITALS: BP 110/80; PULSE 69; RESP 17; TEMP 97.4; O2SAT 98
[2017-12-23] MEDS: DIVALPROEX SODIUM E.R. 500 MG TAB PO SCH (20:17)
[2017-12-23] MEDS: REMOVE OLD NICOTINE PATCH T-DERMAL SCH (20:18)
[2017-12-24 06:23] VITALS: BP 110/64; PULSE 63; RESP 20; TEMP 98.4; O2SAT 100
[2017-12-24] MEDS: CHOLECALCIFEROL (VIT D3) 1000 UNIT TAB PO SCH (08:35)
[2017-12-24] MEDS: METOPROLOL SUCCINATE 50 MG EXTENDED RELEASE TAB PO SCH (08:35)
[2017-12-24] MEDS: NICOTINE 21 MG/24 HR PATCH T-DERMAL SCH (08:35)
[2017-12-24] MEDS: risperiDONE 3 MG TAB PO SCH ×2 (08:35→20:45)
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
[2017-12-24 18:19] VITALS: BP 112/69; PULSE 72; RESP 19; TEMP 97.9; O2SAT 99
[2017-12-24] MEDS: DIVALPROEX SODIUM E.R. 500 MG TAB PO SCH (20:45)
[2017-12-24] MEDS: REMOVE OLD NICOTINE PATCH T-DERMAL SCH (20:47)
[2017-12-25 06:15] VITALS: BP 101/61; PULSE 62; RESP 17; TEMP 98; O2SAT 96
[2017-12-25 06:17] VITALS: BP 127/65; PULSE 84; RESP 18; TEMP 97.3; O2SAT 97
[2017-12-25] MEDS: METOPROLOL SUCCINATE 50 MG EXTENDED RELEASE TAB PO SCH (09:14)
[2017-12-25] MEDS: risperiDONE 3 MG TAB PO SCH ×2 (09:14→21:03)
[2017-12-25] MEDS: NICOTINE 21 MG/24 HR PATCH T-DERMAL SCH (09:14)
[2017-12-25] MEDS: CHOLECALCIFEROL (VIT D3) 1000 UNIT TAB PO SCH (09:14)
--- NOTE | 2017-12-25 13:11 | HHI.PYPN ---
Subjective Chief Complaint: Psychosis/aggression Remarks Pt seen and discussed with staff. He remains withdrawn but did go out to recreational area to participate in therapeutic activity today. He has been guarded and paranoid, but no aggression. He states that he is "Waiting on the voice of God to to come for me and say this is my son!" No SI/HI Mental Status Examination Appearance: Disheveled Consciousness: Alert, Vigilant Orientation: Person (at least) Motor Activity: Other (no motor abnormalities noted) Speech: Unremarkable Language: Adequate Fund of Knowledge: Inadequate Attention and Concentration: Easily Distracted Memory: Impaired (psychosis interferes) Mood: Angry, Other (calm) Affect: Flat Thought Process & Associations: Linear Thought Content: Delusional Hallucination Type: Other (remains internally stimulated) Delusion Type: Bizarre, Paranoid, Other (mu-ism ) Suicidal Ideation: No Suicidal Plan: No Suicidal Intention: No Homicidal Ideation: No Homicidal Plan: No Homicidal Intention: No Insight: Poor Judgment: Poor Results Vitals/IOs Vital Signs Date Time Temp Pulse Resp B/P (MAP) Pulse Ox O2 Delivery O2 Flow Rate FiO2 12/25/17 06:15 98.0 62 17 101/61 (74) 96 Assessment & Plan Problem List: (1) Paranoid schizophrenia ICD Codes: F20.0 - Paranoid schizophrenia Assessment & Plan Continue current plan. Pt improving. Estimated LOS: days Justification for Cont. Inpt. impairments in reality testing, risk of decompensation Request HC Surrog/Guard Advoc?: Yes Sofy Dc MD Dec 25, 2017 13:11
[2017-12-25 15:41] VITALS: BP 114/76; PULSE 61; RESP 18; TEMP 97.6; O2SAT 96
[2017-12-25] MEDS: REMOVE OLD NICOTINE PATCH T-DERMAL SCH (21:00)
[2017-12-25] MEDS: DIVALPROEX SODIUM E.R. 500 MG TAB PO SCH (21:03)
[2017-12-26 05:57] VITALS: BP 116/68; PULSE 62; RESP 18; TEMP 97.3; O2SAT 98
[2017-12-26] MEDS: METOPROLOL SUCCINATE 50 MG EXTENDED RELEASE TAB PO SCH (09:00)
[2017-12-26] MEDS: CHOLECALCIFEROL (VIT D3) 1000 UNIT TAB PO SCH (09:02)
[2017-12-26] MEDS: risperiDONE 3 MG TAB PO SCH ×2 (09:02→21:03)
[2017-12-26] MEDS: NICOTINE 21 MG/24 HR PATCH T-DERMAL SCH (09:03)
[2017-12-26 17:06] VITALS: BP 114/80; PULSE 72; RESP 18; TEMP 97.6; O2SAT 98
--- NOTE | 2017-12-26 17:08 | HHI.PYPN ---
Subjective Chief Complaint: Psychosis/aggression Remarks Patient seen and examined with nurse. Chart reviewed. Case discussed with nursing staff. No behavioral issues overnight. On my examination today, patient is calm and cooperative. He is somewhat seclusive to room. He denies any SI or HI. Denies any AVH. No paranoid ideation noted. No side effects from medications. No physical complaints. Requesting a book to read, in particular a spy thriller. I have passed this request along to the recreation therapist. Placed call to patient's guardian advocate to discuss possibility of initiating a long-acting injectable antipsychotic. I have left generic voicemail requesting a call back. Review of Systems ROS Limitations: Poor Historian Except as stated in HPI: all other systems reviewed are Neg Mental Status Examination Appearance: Disheveled (grooming is improved versus admission) Consciousness: Alert Orientation: Person, Place Motor Activity: Other (no abnormal motor movements noted) Speech: Unremarkable Language: Adequate Fund of Knowledge: Inadequate Attention and Concentration: Other (fair) Mood: Other (calm) Affect: Flat Thought Process & Associations: Linear Thought Content: Appropriate Hallucination Type: None Delusion Type: None Suicidal Ideation: No Suicidal Plan: No Suicidal Intention: No Homicidal Ideation: No Homicidal Plan: No Homicidal Intention: No Insight: Poor (chronic condition) Judgment: Poor (chronic condition) Results Labs Labs reviewed. No new labs. Vitals/IOs Vital Signs Date Time Temp Pulse Resp B/P (MAP) Pulse Ox O2 Delivery O2 Flow Rate FiO2 12/26/17 05:57 97.3 62 18 116/68 (84) 98 Assessment & Plan Problem List: (1) Paranoid schizophrenia ICD Codes: F20.0 - Paranoid schizophrenia Assessment & Plan Continue current psychotropics as ordered. Plan to initiate long-acting injectable antipsychotic. Depakote level ordered for this evening. Continue other medications and care as ordered. Justification for Cont. Inpt. Risk for decompensation Discharge Planning Possible discharge back to facility in next day or 2. Request HC Surrog/Guard Advoc?: Yes Filipe Sepulveda MD Dec 26, 2017 17:08
[2017-12-26] MEDS: REMOVE OLD NICOTINE PATCH T-DERMAL SCH (21:00)
[2017-12-26] MEDS: DIVALPROEX SODIUM E.R. 500 MG TAB PO SCH (21:03)
[2017-12-27 05:45] VITALS: BP 104/56; PULSE 56; RESP 18; TEMP 97.5; O2SAT 97
[2017-12-27] MEDS: METOPROLOL SUCCINATE 50 MG EXTENDED RELEASE TAB PO SCH (09:00)
[2017-12-27] MEDS: NICOTINE 21 MG/24 HR PATCH T-DERMAL SCH (09:00)
[2017-12-27] MEDS: risperiDONE 3 MG TAB PO SCH (09:00)
[2017-12-27] MEDS: levOCARNitine 10% ORAL SOLN 118 ML BTL PO SCH ×2 (09:00→11:33)
[2017-12-27] MEDS: CHOLECALCIFEROL (VIT D3) 1000 UNIT TAB PO SCH (09:00)
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
[2017-12-27] MEDS ORDERED: PALI156P IM (10:48)
[2017-12-27] MEDS ORDERED: DEPA500T3 PO (10:48)
[2017-12-27] MEDS ORDERED: METO1TAB9 PO (10:48)
[2017-12-27] MEDS ORDERED: RISP3 PO (10:48)
[2017-12-27] MEDS ORDERED: CHOL1000 PO (10:48)
[2017-12-27] MEDS ORDERED: CARN330T PO (10:48)
--- NOTE | 2017-12-27 10:51 | PD.TTN ---
Patient Problems 1. Discharge planning 2. Medication compliance 3. Knowledge deficit 4. Lack of coping skills Progress Toward Goals Provider Present: Dr. Tabitha Sepulveda Provider Input: 12/27/2017 Patient is being discharged to [facility] Pt remains psychotic and paranoid. Medication regiment is on hold as there is no one to consent for his medication at this time. 12/20- Pt has not been on any medication to this point as there has been no one to consent to his medications. He will attend [place] [address] and obtain a GA. 12/23- Pt has been resumed on his medication regiment including Risperdal and Depakote. He will be considered for a long acting injection. Nurse(s) Present: Sarah Sexton RN Nurse(s) Input: Pt remains paranoid, easily agitated and withdrawn to self. 12/20- Shari Fernandez RN Pt is very seclusive, demanding and psychotic with no medication at this point. 12/23- Abbie Mayorga RN Pt has been compliant with medication regiment today but remains irritable, withdrawn and psychotic. Psychiatric Counselors Present: Taras Jackson [facility] Psych Therapist Input: 12/27/2017 Patient is being discharged to [facility] Pt appears paranoid, psychotic, easily agitated and with poor insight into condition. Pt is not on medication at this time due to lack of person to consent. He presents with limited coping and emotional regulation skills. He will be evaluated for return to [facility] by facility. 12/23- Pt remains psychotic, easily agitated, withdrawn, seclusive, guarded and uncooperative. Pt appears with limited coping and emotional regulation skills. Pt has limited insight into condition and need for care. He has been mainly noncompliant with medication regiment. He will return to [facility] after discharge. 12/20- Pt continues to appear psychotic, bizarre, easily agitated and withdrawn. Pt is not currently on medication. He presents with limited coping and emotional regulation skills. He is poorly engaged in treatment. Pt appears with limited insight into condition and need for care. Pt will likely return to [facility] after discharge. Group Spec/RT/OT/MEJIA Present: Keerthi Otero, DAYAN, ROBERTO Everett Group Spec/RT/OT/MEJIA Input: 12/27/2017 Patient is attending groups and activities Pt is a new admission. 12/23- ROBERTO Everett Pt does not attend groups. Discharge Plan [facility] Pt will be evaluated by [facility] for possible return. He will be linked with outpatient follow up services. Documentation Scribe: VONNIE Tejada Sandra LMHC Dec 27, 2017 10:51
[2017-12-27] MEDS ORDERED: PALIPERIDONE PALMITATE 234 MG/1.5 ML SYRINGE IM ONE (12:00)
[2017-12-27] MEDS ORDERED: DIVALPROEX SODIUM E.R. 500 MG TAB PO SCH (21:00)
[2017-12-27] MEDS ORDERED: DIVALPROEX SODIUM E.R. 250 MG TAB PO SCH (21:00)
== END 2017-12-27 15:10 | DRG 885 ==
LOC: NEDAMB 15:50 → NEDA 23:44 → H270 23:55
PROVIDERS: ADMIT Psychiatry & Neurology Psychiatry; ATTEND Psychiatry & Neurology Psychiatry
DX: F20.0 Paranoid schizophrenia (principal); I10 Essential (primary) hypertension
CPT/HCPCS: 80048; 80053; 80061; 80164; 80307; 82140; 82306; 82550; 82607; 83036; 83735; 84100; 84439; 84443; 84550; 85025; 86592; 93005; J2426

== ENCOUNTER 2018-07-29 19:30 | Inpatient (IN) ==
--- NOTE | 2018-07-29 19:45 | ED ---
HPI General Chief Complaint: Psychiatric Symptoms Stated Complaint: psych eval VCSO Time Seen by Provider: 07/29/18 19:39 Source: patient and police Mode of arrival: ambulatory Limitations: altered mental status History of Present Illness HPI Narrative: 52-year-old white male with a history of paranoid schizophrenia, and hypertension presents emergency department under [place] act by PD. Patient allegedly had been a client at the [facility] which is an outpatient [facility] for psychiatric patients in [facility]. The facility allegedly had closed down 3 days ago. The patient has been on the streets now here in [facility] after being dropped off per discussion with PD. The patient appeared to be confused and unable to care for himself. He had been wandering the streets. The patient was unable to render any meaningful history and could not give information regarding the date, year, or president. The patient has been off his medications. He has not been eating or drinking now for the last 3 days. The patient does not have capacity. He was initially brought to [facility] but was declined and advised to come to the ER for clearance and treatment. Past medical history: Paranoid schizophrenia, hypertension Social history: No tobacco. No alcohol. No drugs. Related Data Home Medications Medication Instructions Recorded Confirmed Unable to Obtain Home Meds 07/30/18 07/30/18 Allergies Allergy/AdvReac Type Severity Reaction Status Date / Time Unable to Assess Allergy Unknown Verified 12/14/17 21:55 No Known Allergies Allergy Unknown Uncoded 12/14/17 23:22 Review of Systems ROS Unobtainable ROS Unobtainable: unobtainable due to mental condition PMFSH Social History Social History Substance History: No History of Abuse Second Hand Smoke Exposure: No Smoking Status: Current every day smoker Tobacco Type: Cigarettes How Often Do You Have a Drink Containing Alcohol: Never Recent Travel in [facility] within the Last 8 Weeks: No Recent Out of Country Travel within the Last 8 Weeks: No Exam Narrative Exam Narrative: GENERAL: Well-nourished, well-developed patient. SKIN: Warm and dry. HEAD: Normocephalic and atraumatic. EYES: No scleral icterus. No injection or drainage. ENT: No nasal drainage noted. Mucous membranes pink. Airway patent. NECK: Supple, trachea midline. Moves head freely without obvious discomfort. CARDIOVASCULAR: Regular rate and rhythm without murmurs, gallops, or rubs. RESPIRATORY: Breath sounds equal bilaterally. No accessory muscle use. GASTROINTESTINAL: Abdomen soft, non-tender, nondistended. EXTREMITIES: No cyanosis or edema. BACK: Nontender without obvious deformity. No CVA tenderness. NEURO: Patient is alert and oriented. no sensorimotor deficits. Nonfocal. Normal speech. PSYCH: Patient has poor insight and judgment.. Course Initial Documented Vital Signs Temperature 99.9 F H 07/29/18 19:31 Pulse Rate 121 H 07/29/18 19:31 Respiratory Rate 18 07/29/18 19:31 Blood Pressure 173/103 H 07/29/18 19:31 Pulse Oximetry 99 07/29/18 19:31 Last Documented Vital Signs Temperature 98.5 F 07/30/18 18:34 Pulse Rate 84 07/30/18 18:34 Respiratory Rate 18 07/30/18 18:34 Blood Pressure 144/99 H 07/30/18 18:34 Pulse Oximetry 92 L 07/30/18 18:34 Medical Decision Making MDM Narrative Medical decision making narrative: We will obtain routine laboratory testing including CBC, chemistry, tox, EtOH, TSH, Depakote level. Patient is given metoprolol 50 mg p.o. for his blood pressure and tachycardia. I suspect his vital signs are reflexive from not being on his beta-cathie. Medical Screen Exam Complete: Yes Emergency Medical Condition: Yes Differential Diagnosis Differential Diagnosis: MDM: High Differential diagnoses: Schizophrenia, schizoaffective disorder, bipolar, anxiety, depression, adjustment reaction, mood disorder NOS, ODD, depressive disorder NOS, dementia, dementia with agitation, psychosis NOS, substance induced mood disorder, DMDD, Asperger syndrome, infection,electrolyte abnormality, malingering. Mental health screening discussed with the patient. Psychiatric screen ordered. Lab Data Result diagrams: 07/29/18 19:20 07/29/18 19:20 Lab Results 07/29/18 07/29/18 07/29/18 Range/Units 19:20 19:20 19:20 WBC 10.3 (4.0-11.0) th/mm3 RBC 4.31 L (4.50-5.90) mil/mm3 Hgb 14.3 (13.0-17.0) gm/dL Hct 40.6 (39.0-51.0) % MCV 94.2 (80.0-100.0) fL MCH 33.2 (27.0-34.0) pg MCHC 35.3 (32.0-36.0) % RDW 14.1 (11.6-17.2) % Plt Count 215 (150-450) th/mm3 MPV 7.7 (7.0-11.0) fL Neut % (Auto) 79.2 H (16.0-70.0) % Lymph % (Auto) 7.4 L (9.0-44.0) % [place] % (Auto) 12.8 H (0.0-8.0) % Eos % (Auto) 0.1 (0.0-4.0) % Baso % (Auto) 0.5 (0.0-2.0) % Neut # (Auto) 8.2 H (1.8-7.7) th/mm3 Lymph # (Auto) 0.8 L (1.0-4.8) th/mm3 [place] # (Auto) 1.3 H (0.0-0.9) th/mm3 Eos # (Auto) 0.0 (0.0-0.4) th/mm3 Baso # (Auto) 0.1 (0.0-0.2) th/mm3 WBC Differential . Differential Comment Auto diff final Sodium 130 L (136-145) meq/L Potassium 3.4 L (3.5-5.1) meq/L Chloride 95 L (98-107) meq/L Carbon Dioxide 27.9 (21.0-32.0) meq/L Anion Gap 7 (5-15) meq/L BUN 14 (7-18) mg/dL Creatinine 0.75 (0.60-1.30) mg/dL Estimated GFR Greater than 89 (>89) mL/min Random Glucose 115 H (74-106) mg/dL Calcium 8.9 (8.5-10.1) mg/dL Total Bilirubin 0.8 (0.2-1.0) mg/dL AST 241 H (15-37) U/L ALT 65 (12-78) U/L Alkaline Phosphatase 78 (45-117) U/L Total Protein 7.9 (6.4-8.2) g/dL Albumin 4.2 (3.4-5.0) g/dL TSH 2.250 (0.358-3.740) uIU/mL Urine Opiates Screen (Neg) Ur Barbiturates Screen (Neg) Valproic Acid 6 L (50-100) mcg/mL Ur Amphetamines Screen (Neg) U Benzodiazepines Scrn (Neg) Urine Cocaine Screen (Neg) U Cannabinoids Screen (Neg) Serum Alcohol Less than 3 (0-5) mg/dL 07/30/18 Range/Units 04:57 WBC (4.0-11.0) th/mm3 RBC (4.50-5.90) mil/mm3 Hgb (13.0-17.0) gm/dL Hct (39.0-51.0) % MCV (80.0-100.0) fL MCH (27.0-34.0) pg MCHC (32.0-36.0) % RDW (11.6-17.2) % Plt Count (150-450) th/mm3 MPV (7.0-11.0) fL Neut % (Auto) (16.0-70.0) % Lymph % (Auto) (9.0-44.0) % [place] % (Auto) (0.0-8.0) % Eos % (Auto) (0.0-4.0) % Baso % (Auto) (0.0-2.0) % Neut # (Auto) (1.8-7.7) th/mm3 Lymph # (Auto) (1.0-4.8) th/mm3 [place] # (Auto) (0.0-0.9) th/mm3 Eos # (Auto) (0.0-0.4) th/mm3 Baso # (Auto) (0.0-0.2) th/mm3 WBC Differential Differential Comment Sodium (136-145) meq/L Potassium (3.5-5.1) meq/L Chloride (98-107) meq/L Carbon Dioxide (21.0-32.0) meq/L Anion Gap (5-15) meq/L BUN (7-18) mg/dL Creatinine (0.60-1.30) mg/dL Estimated GFR (>89) mL/min Random Glucose (74-106) mg/dL Calcium (8.5-10.1) mg/dL Total Bilirubin (0.2-1.0) mg/dL AST (15-37) U/L ALT (12-78) U/L Alkaline Phosphatase (45-117) U/L Total Protein (6.4-8.2) g/dL Albumin (3.4-5.0) g/dL TSH (0.358-3.740) uIU/mL Urine Opiates Screen Neg (Neg) Ur Barbiturates Screen Neg (Neg) Valproic Acid (50-100) mcg/mL Ur Amphetamines Screen Neg (Neg) U Benzodiazepines Scrn Neg (Neg) Urine Cocaine Screen Neg (Neg) U Cannabinoids Screen Neg (Neg) Serum Alcohol (0-5) mg/dL Discharge Plan Discharge Disposition Patient Disposition: 01 Discharge Home Discharge Condition Condition: Stable Discharge Order Discharge Orders: Discharge Order (Routine); Ordered 07/30/18 Ordered By: Broderick Kang Physicians Team ED Provider: Donna Stephenson ED Midlevel Provider: Broderick Kang Primary Care Provider: Primary Care Elizabeth Barrett Attending Provider: Erik Yadav Discharge Interventions Interventions: ED Discharge Assessment Last Done: 07/30/18 18:23 Status ED Status: Left Department Discharge Information Discharge Date/Time: 07/30/18 18:24
[2018-07-29 20:06] LABS: Baso # (Auto) 0.1 th/mm3 (0.0-0.2); Baso % (Auto) 0.5 % (0.0-2.0); Eos % (Auto) 0.1 % (0.0-4.0); Hematocrit 40.6 % (39.0-51.0); Hemoglobin 14.3 gm/dL (13.0-17.0); Lymph # (Auto) 0.8 th/mm3 (1.0-4.8); Lymph % (Auto) 7.4 % (9.0-44.0); Mean Corpuscular HGB Conc 35.3 % (32.0-36.0); Mean Corpuscular Hemoglobin 33.2 pg (27.0-34.0); Mean Corpuscular Volume 94.2 fL (80.0-100.0); Mean Platelet Volume 7.7 fL (7.0-11.0); Mono # (Auto) 1.3 th/mm3 (0.0-0.9); Mono % (Auto) 12.8 % (0.0-8.0); Neut # (Auto) 8.2 th/mm3 (1.8-7.7); Neut % (Auto) 79.2 % (16.0-70.0); Platelet Count 215 th/mm3 (150-450); Red Blood Count 4.31 mil/mm3 (4.50-5.90); Red Cell Distribution Width 14.1 % (11.6-17.2); White Blood Count 10.3 th/mm3 (4.0-11.0)
[2018-07-29] MEDS ORDERED: Metoprolol Tartrate 100 MG Tablet PO ONE (20:31)
[2018-07-29] MEDS ORDERED: Metoprolol Tartrate 50 MG Tablet PO ONE (20:33)
[2018-07-29 20:34] LABS: Albumin 4.2 g/dL (3.4-5.0); Anion Gap 7 meq/L (5-15); Aspartate Aminotransferase 241 U/L (15-37); Blood Urea Nitrogen 14 mg/dL (7-18); Calcium 8.9 mg/dL (8.5-10.1); Carbon Dioxide 27.9 meq/L (21.0-32.0); Chloride 95 meq/L (98-107); Glomerular Filtration Rate Greater Than 89 mL/min (>89); Glucose,Random 115 mg/dL (74-106); Potassium 3.4 meq/L (3.5-5.1); Sodium 130 meq/L (136-145)
[2018-07-29 20:45] LABS: Alanine Aminotransferase 65 U/L (12-78); Alkaline Phosphatase 78 U/L (45-117); Total Protein 7.9 g/dL (6.4-8.2)
[2018-07-30 05:13] LABS: Amphetamine Screen,Urine Neg (Neg); Barbiturate Screen,Urine Neg (Neg); Cannabinoid Screen,Urine Neg (Neg); Cocaine Screen,Urine Neg (Neg); Opiate Screen,Urine Neg (Neg)
[2018-07-30] MEDS ORDERED: Aluminum/Magnesium/Simethacone Susp 30 ML UDC PO PRN (16:37)
--- NOTE | 2018-07-30 18:16 | ED ---
HPI - Psych - General Source: patient, police Mode of arrival: ambulatory Limitations: no limitations - History of Present Illness MD complaint: other (Psychosis) Onset (ago): unknown Context: significant life stressor - General Chief Complaint: Psychiatric Symptoms Stated Complaint: psych eval VCSO Time Seen by Provider: 07/29/18 19:39 - History of Present Illness HPI Narrative: This is a 52 year-old single, male who presents under a [place] Act for reportedly being unable to provide self-care. Patient is known to the psychiatric department with a previous admission from 12/14/17-12/27/17. Reviewed electronic medical record, labs, and discussed case with staff. Patient was evaluated in [facility]. He is found lying on the bed awake but refusing to interact. The only response I could get from him when asked why he was here he responded "psych problems". He refused to participate in any of the interview process beyond that. She is dressed in [facility] and is disheveled, dirty, and malodorous. A DCF worker was by earlier reporting that the family had contacted them with concern about the patient. He was a resident of [facility] which closed last week and has been reportedly walking the streets, not taking his medication, and has become psychotic. (Yari Murguia) - Related Data Home Medications Medication Instructions Recorded Confirmed Unable to Obtain Home Meds 07/30/18 07/30/18 Allergies Allergy/AdvReac Type Severity Reaction Status Date / Time Unable to Assess Allergy Unknown Verified 12/14/17 21:55 No Known Allergies Allergy Unknown Uncoded 12/14/17 23:22 Review of Systems All other systems reviewed negative except as stated in HPI PMFSH - History History Provided By: Medical Record - Medical History Medical History: Medical History (Last Reviewed 07/30/18 @ 18:55 by RICHARDSON Yost) Hypertension Schizophrenia - Tobacco History Second Hand Smoke Exposure: No Tobacco Use In Past 30 Days: Yes Smoking Status: Current every day smoker Tobacco Type: Cigarettes - Alcohol History How Often Do You Have a Drink Containing Alcohol: Never - Substance Use History Substance History: No History of Abuse - Travel History Recent Travel in the [place] Within the Last 8 Weeks: No Recent Travel Out of the Country Within the Last 8 Weeks: No - Immunization History Tetanus Immunization: <5 Years Hx Influenza Vaccine This Season: Unable to Assess Psychiatric History - Psychiatric History Psychiatric Treatment History: History of Psychiatric Treatment, History of Hospitalization in a Psychiatric Facility History of Inpatient Treatment: Yes Physical Exam - General Limitations: altered mental status General appearance: other (Refusing to speak) - Psychiatric Psychiatric exam: Present: other (Refusing to speak) Mental Status Examination Appearance: Dirty, Disheveled, Malodorous Consciousness: Other (Unable to assess) Motor Activity: Other (Ambulated about the unit without difficulty) Speech: Other (Not speaking) Language: Other (Unable to assess) Insight: Poor Judgment: Poor Initial Documented Vital Signs Temperature 99.9 F H 07/29/18 19:31 Pulse Rate 121 H 07/29/18 19:31 Respiratory Rate 18 07/29/18 19:31 Blood Pressure 173/103 H 07/29/18 19:31 Pulse Oximetry 99 07/29/18 19:31 Last Documented Vital Signs Temperature 98.3 F 07/30/18 04:13 Pulse Rate 74 07/30/18 04:13 Respiratory Rate 18 07/30/18 04:13 Blood Pressure 114/72 07/30/18 04:13 Pulse Oximetry 98 07/30/18 04:13 MDM - Psych - Diagnosis (1) Unspecified psychosis Status: Acute - Lab Data Result diagrams: 07/29/18 19:20 07/29/18 19:20 - MDM Narrative Medical decision making narrative: Given that this patient has a history of psychosis and has been reportedly walking the streets for days without his psychiatric medication, and his current presentation I am admitting him to the psychiatric inpatient unit for further evaluation and treatment as deemed necessary. Patient will be admitted under the Stephenson act. (Yari Murguia) - Lab Data Lab Results 07/29/18 07/29/18 07/29/18 Range/Units 19:20 19:20 19:20 WBC 10.3 (4.0-11.0) th/mm3 RBC 4.31 L (4.50-5.90) mil/mm3 Hgb 14.3 (13.0-17.0) gm/dL Hct 40.6 (39.0-51.0) % MCV 94.2 (80.0-100.0) fL MCH 33.2 (27.0-34.0) pg MCHC 35.3 (32.0-36.0) % RDW 14.1 (11.6-17.2) % Plt Count 215 (150-450) th/mm3 MPV 7.7 (7.0-11.0) fL Neut % (Auto) 79.2 H (16.0-70.0) % Lymph % (Auto) 7.4 L (9.0-44.0) % [place] % (Auto) 12.8 H (0.0-8.0) % Eos % (Auto) 0.1 (0.0-4.0) % Baso % (Auto) 0.5 (0.0-2.0) % Neut # (Auto) 8.2 H (1.8-7.7) th/mm3 Lymph # (Auto) 0.8 L (1.0-4.8) th/mm3 [place] # (Auto) 1.3 H (0.0-0.9) th/mm3 Eos # (Auto) 0.0 (0.0-0.4) th/mm3 Baso # (Auto) 0.1 (0.0-0.2) th/mm3 WBC Differential . Differential Comment Auto diff final Sodium 130 L (136-145) meq/L Potassium 3.4 L (3.5-5.1) meq/L Chloride 95 L (98-107) meq/L Carbon Dioxide 27.9 (21.0-32.0) meq/L Anion Gap 7 (5-15) meq/L BUN 14 (7-18) mg/dL Creatinine 0.75 (0.60-1.30) mg/dL Estimated GFR Greater than 89 (>89) mL/min Random Glucose 115 H (74-106) mg/dL Calcium 8.9 (8.5-10.1) mg/dL Total Bilirubin 0.8 (0.2-1.0) mg/dL AST 241 H (15-37) U/L ALT 65 (12-78) U/L Alkaline Phosphatase 78 (45-117) U/L Total Protein 7.9 (6.4-8.2) g/dL Albumin 4.2 (3.4-5.0) g/dL TSH 2.250 (0.358-3.740) uIU/mL Urine Opiates Screen (Neg) Ur Barbiturates Screen (Neg) Valproic Acid 6 L (50-100) mcg/mL Ur Amphetamines Screen (Neg) U Benzodiazepines Scrn (Neg) Urine Cocaine Screen (Neg) U Cannabinoids Screen (Neg) Serum Alcohol Less than 3 (0-5) mg/dL 07/30/18 Range/Units 04:57 WBC (4.0-11.0) th/mm3 RBC (4.50-5.90) mil/mm3 Hgb (13.0-17.0) gm/dL Hct (39.0-51.0) % MCV (80.0-100.0) fL MCH (27.0-34.0) pg MCHC (32.0-36.0) % RDW (11.6-17.2) % Plt Count (150-450) th/mm3 MPV (7.0-11.0) fL Neut % (Auto) (16.0-70.0) % Lymph % (Auto) (9.0-44.0) % [place] % (Auto) (0.0-8.0) % Eos % (Auto) (0.0-4.0) % Baso % (Auto) (0.0-2.0) % Neut # (Auto) (1.8-7.7) th/mm3 Lymph # (Auto) (1.0-4.8) th/mm3 [place] # (Auto) (0.0-0.9) th/mm3 Eos # (Auto) (0.0-0.4) th/mm3 Baso # (Auto) (0.0-0.2) th/mm3 WBC Differential Differential Comment Sodium (136-145) meq/L Potassium (3.5-5.1) meq/L Chloride (98-107) meq/L Carbon Dioxide (21.0-32.0) meq/L Anion Gap (5-15) meq/L BUN (7-18) mg/dL Creatinine (0.60-1.30) mg/dL Estimated GFR (>89) mL/min Random Glucose (74-106) mg/dL Calcium (8.5-10.1) mg/dL Total Bilirubin (0.2-1.0) mg/dL AST (15-37) U/L ALT (12-78) U/L Alkaline Phosphatase (45-117) U/L Total Protein (6.4-8.2) g/dL Albumin (3.4-5.0) g/dL TSH (0.358-3.740) uIU/mL Urine Opiates Screen Neg (Neg) Ur Barbiturates Screen Neg (Neg) Valproic Acid (50-100) mcg/mL Ur Amphetamines Screen Neg (Neg) U Benzodiazepines Scrn Neg (Neg) Urine Cocaine Screen Neg (Neg) U Cannabinoids Screen Neg (Neg) Serum Alcohol (0-5) mg/dL
[2018-07-30] MEDS: Senna/Docusate Sodium 8.6/50 MG Tablet PO SCH (20:23)
[2018-07-31 07:55] LABS: Anion Gap 5 meq/L (5-15); Blood Urea Nitrogen 11 mg/dL (7-18); Calcium 8.4 mg/dL (8.5-10.1); Carbon Dioxide 29.3 meq/L (21.0-32.0); Chloride 100 meq/L (98-107); Cholesterol 107 mg/dL (120-200); Glomerular Filtration Rate Greater Than 89 mL/min (>89); Glucose,Random 103 mg/dL (74-106); Sodium 134 meq/L (136-145); Triglycerides 97 mg/dL (42-150)
[2018-07-31 07:58] LABS: Chol/HDL Ratio 3.06 Ratio; HDL Cholesterol 34.9 mg/dL (40.0-60.0); LDL Cholesterol,Calculated 53 mg/dL (0-99)
--- NOTE | 2018-07-31 09:57 | P.HPPSY ---
Provisional Diagnosis Admission Date: July 30, 2018 16:37 [place] I.: Schizophrenia chronic paranoid type Competence Certification of Person's Competence To Provide Express and Informed Consent I have personally examined Juan Mckay JR, a person being served at [facility] on, July 31, 2018 0946. Express and informed consent means consent voluntarily given in writing, by a competent person, after sufficient explanation and disclosure of the subject matter involved to enable the person to make a knowing and willful decision without any element of force, fraud, deceit, duress, or other form of constraint or coercion. This person is 18 years of age or older, is not now known to be incompetent to consent to treatment with a guardian advocate, and does not have a health care surrogate or proxy currently making medical treatment decisions. I have found this person to be one of the following: [] Competent to provide express and informed consent, as defined above, for voluntary admission to this facility and is competent to provide express and informed consent for treatment. He/she has the consistent capacity to make well reasoned, willful, and knowing decisions concerning his or her medical or mental health treatment. The person fully and consistently understands the purpose of the admission for examination/placement and is fully capable of personally exercising all rights assured under [place]xxx] Incompetent to provide express and informed consent to voluntary admission , and this is incompetent to provide express and informed consent to treatment. The person must be transferred to involuntary status and a petition for a guardian advocate filed with the Circuit Court. [] Refusing to provide express and informed consent to voluntary admission but is competent to provide express and informed consent for treatment. The person must be discharged or transferred to involuntary status. Form shall be completed within 24 hours of a person's arrival at the receiving facility and filed in the clinical record of each person: 1. Admitted on a voluntary basis 2. Permitted to provide express and informed consent to his/her own treatment 3. Allowed to transfer from involuntary to voluntary status 4. Prior to permitting a person to consent to his or her own treatment after having been previously found incompetent to consent to treatment. History of Present Illness Capacity: Lacks capacity History of Present Illness: Patient is a 52-year-old white male comes here under a Stephenson act by the [facility]'s office dated 07/29/2018 at 1840 5 PM that document reviewed essentially is stating Cesilia pablo has been off his medication for the past 3 days Mr. Aguirre has also not had any food in the past 2 days. Patient seen and screened in the ED urine toxicology negative Depakote blood level of 6. At the present time patient sitting in the day room on 2500 patient seen with floor staff, chart reviewed, patient has been angry irritable insulting and profane with multiple staff members who come near him. It appears she was a long time resident of [facility] is a place in some other type facility. It appears she has not been happy there saying they have been feeling him "shit" he is also quite confused he is oriented to himself only at this time. He is vague about place and location time and situation. When asked about auditory hallucinations patient somewhat irritable there is significant thought blocking and distractibility as if he is responding to internal stimuli. When asked about suicidality he again becomes angry low denies suicidality and he denies homicidality. He is also B comments about his aunt not feeding him. He does not know if he is taking his medication. He does not know who prescribes his medication. At this time patient does not meet criteria for further inpatient psychiatric hospitalization I will do first opinion request second opinion I feel he does not have capacity thus I will ask for health care surrogate helpless treat this young man. Upon review of the EMR I sign of his last hospitalization he was prescribed Depakote ER 1750 mg at bedtime Resporal 3 mg twice daily and in Yang sustain a 156 mg. For now we will restart the Depakote at 1000 mg at bedtime, the Resporal 2 mg twice daily and will put the in Yang sustain on hold for now. Hope this be short stay we do need to research what his living situation was like otherwise placement may become problematic - Inpatient Certification I certify that the inpatient services were ordered in accordance with Medicare regulations governing the order. This includes certification that hospital inpatient services are reasonable and necessary and in the case of services not specified as inpatient-only under 42 CFR 419.22(n), that they are appropriately provided as inpatient services in accordance to with the 2-midnight benchmark under 43 CFR 412.3(e) I certify that inpatient psychiatric hospital services are medically necessary. Evaluation and treatment and/or diagnostic testing are expected to improve the patient's condition. The patient needs on a daily basis, active treatment furnished directly by or requiring the supervision of inpatient psychiatric facility personnel. Estimated Total Length of Stay (Days): 7 Plans for Post Hospital Care: Not yet determined Review of Systems unobtainable due to mental condition PMFSH - History History Provided By: Patient, Medical Record - Medical History Medical History: Medical History (Last Reviewed 07/30/18 @ 18:55 by RICHARDSON Yost) Hypertension Schizophrenia - Tobacco History Second Hand Smoke Exposure: No Tobacco Use In Past 30 Days: Yes Smoking Status: Current every day smoker Tobacco Type: Cigarettes - Alcohol History How Often Do You Have a Drink Containing Alcohol: Never - Substance Use History Substance History: No History of Abuse - Travel History Recent Travel in the [place] Within the Last 8 Weeks: No Recent Travel Out of the Country Within the Last 8 Weeks: No - Immunization History Tetanus Immunization: <5 Years Hx Influenza Vaccine This Season: Unable to Assess Quality Measures - Psychiatric History Psychological trauma history: Unknown at this time patient uncooperative Violence risk to others in the last 6 months: Unknown at this time patient uncooperative quite vigilant Violence risk to self in the last 6 months: Patient denies suicidality - Substance Abuse History Drug or alcohol use in the past 12 months: Patient denies - Patient Strengths Patient's strengths (minimum of 2): Patient verbal able access healthcare Medications and Allergies Active Medications: Active Medications Acetaminophen (Tylenol) 650 mg PO Q4H PRN PRN Reason: Pain 1-5 or Temp >101F Al Hydrox/Mg Hydrox/Simethicone (Mag-Al Plus Susp Liq) 30 ml PO Q6H PRN PRN Reason: DYSPEPSIA Diphenhydramine HCl (Benadryl) 50 mg PO HS PRN PRN Reason: INSOMNIA Senna/Docusate Sodium (Keke-Colace) 1 tab PO BID JONATHAN Last Admin: 07/30/18 20:23 Dose: 1 tab Allergies Allergy/AdvReac Type Severity Reaction Status Date / Time Unable to Assess Allergy Unknown Verified 12/14/17 21:55 No Known Allergies Allergy Unknown Uncoded 12/14/17 23:22 Home Medications Medication Instructions Recorded Confirmed Type Unable to Obtain Home Meds 07/30/18 07/30/18 History Results - Labs CBC & Chem 7: 07/29/18 19:20 07/31/18 07:00 Labs: Laboratory Results - last 24 hr 07/31/18 07:00 Sodium 134 L Potassium 4.0 Chloride 100 Carbon Dioxide 29.3 Anion Gap 5 BUN 11 Creatinine 0.68 Estimated GFR Greater than 89 Random Glucose 103 Calcium 8.4 L Triglycerides 97 Cholesterol 107 L LDL Cholesterol, Calc 53 HDL Cholesterol 34.9 L Cholesterol/HDL Ratio 3.06 Exam Vital signs: Vital Signs 07/30/18 18:34 07/31/18 06:32 Temperature 98.5 F 98.2 F Pulse Rate 84 69 Respiratory Rate 18 18 Blood Pressure 144/99 H 140/80 Pulse Oximetry 92 L 93 L Intake & Output 07/30/18 07/31/18 07/31/18 18:59 06:59 18:59 Intake Total 640 / 640 Balance 640 / 640 Weight 58.967 kg Intake: Oral 640 / 640 Other: Weight On Admission 58.967 kg Narrative: Patient seen sitting in chair in day room he is in no acute distress, he is no respiratory distress, no complaints of chest pain or abdominal pain. Patient moving all 4 extremities without difficulty while sitting down Mental Status Examination Appearance: Dirty, Disheveled, Malodorous Consciousness: Alert, Other (Unable to assess) Orientation: Person (Vaguely) Motor Activity: Other (Ambulated about the unit without difficulty) Speech: Hesitant, Slow Language: Other (Disorganized) Fund of Knowledge: Poor Attention and Concentration: Easily distracted Memory: Impaired Mood: Angry, Irritable Affect: Other (Decreased range and intensity) Thought Process & Associations: Disorganized Thought Content: Other Hallucination Type: Auditory (Appears to be responding to internal stimuli) Delusion Type: Paranoid Suicidal Ideation: No Suicidal Plan: No Suicidal Intention: No Homicidal Ideation: No Homicidal Plan: No Homicidal Intention: No Insight: Poor Judgment: Poor Assessment and Plan - Assessment (1) Paranoid type schizophrenia, chronic state Code(s): F20.0 - Paranoid schizophrenia Status: Acute - Plan Plan: Estimated LOS: [] days Patient psychotic confused and paranoid. At this time he does meet Stephenson criteria I will do first opinion request second opinion I feel he does not have capacity I will ask for health care surrogate and guardian advocate will offer medications as mentioned above with appropriate premonitions Justification for Continued Inpatient Stay: At this time patient would decompensate a place to a lower level of care Discharge Planning: To be determined Request Healthcare Surrogate/Guardian Advocate?: Yes
[2018-07-31] MEDS: Senna/Docusate Sodium 8.6/50 MG Tablet PO SCH ×2 (10:23→22:51)
[2018-07-31 11:15] LABS: Hemoglobin A1c 5.2 % (4.3-6.0)
--- NOTE | 2018-07-31 12:27 | ECG ---
Date Performed: 07/31/2018 Time Performed: 09:35:43 PTAGE: 52 years EKG: SINUS TACHYCARDIA POSSIBLE LEFT ATRIAL ENLARGEMENT ABNORMAL RHYTHM ECG Since the PREVIOUS TRACING , no significant change noted PREVIOUS TRACIN12/15/2017 13.13 DOCTOR: Aleta Lay Interpretating Date/Time 07/31/2018 12:25:07
--- NOTE | 2018-07-31 13:49 | P.CONPSY ---
Provisional Diagnosis Admission Date: July 30, 2018 16:37 [place] I.: Schizophrenia chronic paranoid type History of Present Illness Service: psychiatry Primary Care Provider: No Primary Care Physician History of Present Illness: Patient is a 52-year-old white male comes here under a Stephenson act by the [facility]'s office dated 07/29/2018 at 1840 5 PM that document reviewed essentially is stating Cesilia pablo has been off his medication for the past 3 days Mr. Aguirre has also not had any food in the past 2 days. Patient seen and screened in the ED urine toxicology negative Depakote blood level of 6. At the present time patient sitting in the day room on 2500 patient seen with floor staff, chart reviewed, patient has been angry irritable insulting and profane with multiple staff members who come near him. It appears she was a long time resident of [facility] is a place in some other type facility. It appears she has not been happy there saying they have been feeling him "shit" he is also quite confused he is oriented to himself only at this time. He is vague about place and location time and situation. When asked about auditory hallucinations patient somewhat irritable there is significant thought blocking and distractibility as if he is responding to internal stimuli. When asked about suicidality he again becomes angry low denies suicidality and he denies homicidality. He is also B comments about his aunt not feeding him. He does not know if he is taking his medication. He does not know who prescribes his medication. At this time patient does not meet criteria for further inpatient psychiatric hospitalization I will do first opinion request second opinion I feel he does not have capacity thus I will ask for health care surrogate helpless treat this young man. Upon review of the EMR I sign of his last hospitalization he was prescribed Depakote ER 1750 mg at bedtime Resporal 3 mg twice daily and in Yang sustain a 156 mg. For now we will restart the Depakote at 1000 mg at bedtime, the Resporal 2 mg twice daily and will put the in Yang sustain on hold for now. Hope this be short stay we do need to research what his living situation was like otherwise placement may become problematic The patient is a 52 year-old man, single, psychiatric history of paranoid schizophrenia, multiple psychiatric hospitalizations, who presents under a Stephenson Act for reportedly being unable to provide self-care. Reviewed electronic medical record, labs, and discussed case with staff. Patient was evaluated in J103. He is found lying on the bed awake but refusing to interact. The only response I could get from him when asked why he was here he responded "psych problems". He refused to participate in any of the interview process beyond that. She is dressed in [facility] and is disheveled, dirty, and malodorous. A DCF worker was by earlier reporting that the family had contacted them with concern about the patient. He was a resident of [facility] which closed last week and has been reportedly walking the streets, not taking his medication, and has become psychotic [facility] - History History Provided By: Patient, Medical Record - Medical History Medical History: Medical History (Last Reviewed 07/30/18 @ 18:55 by RICHARDSON Yost) Hypertension Schizophrenia - Tobacco History Second Hand Smoke Exposure: No Tobacco Use In Past 30 Days: Yes Smoking Status: Current every day smoker Tobacco Type: Cigarettes - Alcohol History How Often Do You Have a Drink Containing Alcohol: Never - Substance Use History Substance History: Unable to Obtain - Travel History Recent Travel in the [facility] Within the Last 8 Weeks: No Recent Travel Out of the Country Within the Last 8 Weeks: No - Immunization History Tetanus Immunization: <5 Years Hx Influenza Vaccine This Season: Unable to Assess Medications and Allergies Active Medications: Active Medications Acetaminophen (Tylenol) 650 mg PO Q4H PRN PRN Reason: Pain 1-5 or Temp >101F Al Hydrox/Mg Hydrox/Simethicone (Mag-Al Plus Susp Liq) 30 ml PO Q6H PRN PRN Reason: DYSPEPSIA Al Hydroxide/Mg Hydroxide (Milk Of Magnesia Liq) 30 ml PO Q12H PRN PRN Reason: Mild Constipation Diphenhydramine HCl (Benadryl) 50 mg PO HS PRN PRN Reason: INSOMNIA Divalproex Sodium (Depakote Er) 1,000 mg PO HS JONATHAN Hydroxyzine HCl (Atarax) 50 mg PO Q6H PRN PRN Reason: ANXIETY Risperidone (Risperdal) 2 mg PO BID JONATHAN Senna/Docusate Sodium (Keke-Colace) 1 tab PO BID JONATHAN Last Admin: 07/31/18 10:23 Dose: Not Given Allergies Allergy/AdvReac Type Severity Reaction Status Date / Time Unable to Assess Allergy Unknown Verified 12/14/17 21:55 No Known Allergies Allergy Unknown Uncoded 12/14/17 23:22 Home Medications Medication Instructions Recorded Confirmed Type Unable to Obtain Home Meds 07/30/18 07/30/18 History Exam Vital signs: Vital Signs 07/30/18 18:34 07/31/18 06:32 Temperature 98.5 F 98.2 F Pulse Rate 84 69 Respiratory Rate 18 18 Blood Pressure 144/99 H 140/80 Pulse Oximetry 92 L 93 L Intake & Output 07/30/18 07/31/18 07/31/18 18:59 06:59 18:59 Intake Total 640 / 640 Balance 640 / 640 Weight 58.967 kg Intake: Oral 640 / 640 Other: Weight On Admission 58.967 kg Mental Status Examination Appearance: Dirty, Disheveled, Malodorous Consciousness: Alert, Other (Unable to assess) Orientation: Person (Vaguely) Motor Activity: Other (Ambulated about the unit without difficulty) Speech: Hesitant, Slow Language: Other (Disorganized) Fund of Knowledge: Poor Attention and Concentration: Easily distracted Memory: Impaired Mood: Angry, Irritable Affect: Other (Decreased range and intensity) Thought Process & Associations: Disorganized Thought Content: Other Hallucination Type: Auditory (Appears to be responding to internal stimuli) Delusion Type: Paranoid Suicidal Ideation: No Suicidal Plan: No Suicidal Intention: No Homicidal Ideation: No Homicidal Plan: No Homicidal Intention: No Insight: Poor Judgment: Poor Assessment and Plan - Assessment (1) Paranoid type schizophrenia, chronic state Code(s): F20.0 - Paranoid schizophrenia Status: Acute - Plan Plan: I have seen and examined this patient, reviewed documentation, I agree and concur with Dr. Yadav's assessment and plan Justification for Continued Inpatient Stay: Patient will continue psychiatric admission Request Healthcare Surrogate/Guardian Advocate?: Yes
[2018-07-31] MEDS: Acetaminophen 325 MG Tablet PO PRN (20:24)
[2018-07-31] MEDS: Divalproex 500 MG ER Tablet PO SCH (21:31)
[2018-08-01] MEDS: Senna/Docusate Sodium 8.6/50 MG Tablet PO SCH ×2 (08:12→20:32)
--- NOTE | 2018-08-01 10:27 | P.PNPSY ---
Subjective Remarks: Patient seen in his room with nurse Argueta, chart reviewed, patient compliant medications. Patient remains quite irritable paranoid and angry responding to my questions with brief 1 word irritating answers. He then left the room. He is otherwise been no significant behavioral problems besides isolation and overall irritability. For now continue treatment Review of Systems All other systems reviewed negative except as stated in HPI Mental Status Examination Appearance: Dirty, Disheveled, Malodorous Consciousness: Alert, Other (Unable to assess) Orientation: Person (Vaguely) Motor Activity: Other (Ambulated about the unit without difficulty) Speech: Hesitant, Slow Language: Other (Disorganized) Fund of Knowledge: Poor Attention and Concentration: Easily distracted Memory: Impaired Mood: Angry, Irritable Affect: Other (Decreased range and intensity) Thought Process & Associations: Disorganized Thought Content: Other Hallucination Type: Auditory (Appears to be responding to internal stimuli) Delusion Type: Paranoid Suicidal Ideation: No Suicidal Plan: No Suicidal Intention: No Homicidal Ideation: No Homicidal Plan: No Homicidal Intention: No Insight: Poor Judgment: Poor Assessment and Plan - Assessment (1) Paranoid type schizophrenia, chronic state Code(s): F20.0 - Paranoid schizophrenia Status: Acute - Plan Plan: Patient remains quite psychotic paranoid vigilant and irritable Justification for Continued Inpatient Stay: At this time patient would decompensate a place to a lower level of care Discharge Planning: To be determined Request Healthcare Surrogate/Guardian Advocate?: Yes
[2018-08-01] MEDS: Divalproex 500 MG ER Tablet PO SCH (20:31)
[2018-08-02] MEDS: Senna/Docusate Sodium 8.6/50 MG Tablet PO SCH ×2 (09:09→21:21)
--- NOTE | 2018-08-02 12:27 | P.PNPSY ---
Subjective Remarks: Patient seen in day room with floor staff, patient chart reviewed, patient compliant medication, patient discussed with staff, patient alert calm cooperative with me today. He does deny voices though at times he appears to be responding to internal stimuli over did remember me from yesterday. The paranoia vigilance and irritability are not there today. He is upset because he did not receive the court hearing papers for tomorrow. However at this time patient is willing to stay voluntarily is willing to take his medications and work was with his placement issues. Thus I will lift Stephenson act allow patient to sign voluntary Review of Systems All other systems reviewed negative except as stated in HPI Mental Status Examination Appearance: Dirty, Disheveled, Malodorous Consciousness: Alert, Other (Unable to assess) Orientation: Person (Vaguely) Motor Activity: Other (Ambulated about the unit without difficulty) Speech: Hesitant (Improving), Slow (Improving) Language: Other (Improving) Fund of Knowledge: Poor Attention and Concentration: Easily distracted Memory: Impaired Mood: Angry (Improving), Irritable (Improving) Affect: Other (Decreased range and intensity) Thought Process & Associations: Disorganized Thought Content: Other Hallucination Type: Auditory (Improving) Delusion Type: Paranoid (Improving) Suicidal Ideation: No Suicidal Plan: No Suicidal Intention: No Homicidal Ideation: No Homicidal Plan: No Homicidal Intention: No Insight: Poor Judgment: Poor Assessment and Plan - Assessment (1) Paranoid type schizophrenia, chronic state Code(s): F20.0 - Paranoid schizophrenia Status: Acute - Plan Plan: Patient continues somewhat psychotic though improving, this may feel he does have capacity to sign voluntary will lift Stephenson act allow him to sign voluntary Justification for Continued Inpatient Stay: At this time patient would decompensate a place to the lower level of care Discharge Planning: To be determined Request Healthcare Surrogate/Guardian Advocate?: Yes
[2018-08-02] MEDS: Divalproex 500 MG ER Tablet PO SCH (21:21)
[2018-08-03] MEDS: Senna/Docusate Sodium 8.6/50 MG Tablet PO SCH ×2 (08:42→20:20)
--- NOTE | 2018-08-03 11:42 | P.TTN ---
- Patient Problems Problems: 1. Discharge planning 2. Medication compliance 3. Knowledge deficit 4. Lack of coping skills - Progress Toward Goals Provider Present: Dr. Elsa Yadav Provider Input: Patient has been uncooperative, decreased energy and requires further stabilization. Psychiatric Therapist Input: Aurelia- Patient remins psychtic, delusional adn is uncooperative Group Spec/RT/OT/MEJIA Present: Keerthi Otero, DAYAN Group Spec/RT/OT/MEJIA Input: Patient does not attend groups - Documentation Teaching Recipient: Patient
--- NOTE | 2018-08-03 13:13 | P.PNPSY ---
Subjective Remarks: Patient seen in day room with nurse past, chart reviewed, patient compliant medication. Patient continues calm though somewhat vigilant and mildly paranoid. Today he is also asking for a Bible which we will supply. The continues some vague auditory hallucinations also locally. To be slightly less threatening. For now continue treatment Review of Systems All other systems reviewed negative except as stated in HPI Mental Status Examination Appearance: Dirty, Disheveled, Malodorous Consciousness: Alert, Other (Unable to assess) Orientation: Person (Vaguely) Motor Activity: Other (Ambulated about the unit without difficulty) Speech: Hesitant (Improving), Slow (Improving) Language: Other (Improving) Fund of Knowledge: Poor Attention and Concentration: Easily distracted Memory: Impaired Mood: Angry (Improving), Irritable (Improving) Affect: Other (Decreased range and intensity) Thought Process & Associations: Disorganized Thought Content: Other Hallucination Type: Auditory (Improving) Delusion Type: Paranoid (Improving) Suicidal Ideation: No Suicidal Plan: No Suicidal Intention: No Homicidal Ideation: No Homicidal Plan: No Homicidal Intention: No Insight: Poor Judgment: Poor Assessment and Plan - Assessment (1) Paranoid type schizophrenia, chronic state Code(s): F20.0 - Paranoid schizophrenia Status: Acute - Plan Plan: Patient is showing some slight improvement remained psychotic with auditory hallucinations compliant medications. We will check Depakote blood level over tomorrow Justification for Continued Inpatient Stay: At this time patient would decompensate a place to a lower level of care Discharge Planning: To be determined Request Healthcare Surrogate/Guardian Advocate?: Yes
[2018-08-03] MEDS: Divalproex 500 MG ER Tablet PO SCH (20:19)
[2018-08-04] MEDS: Senna/Docusate Sodium 8.6/50 MG Tablet PO SCH ×2 (09:32→20:40)
--- NOTE | 2018-08-04 11:32 | P.PNPSY ---
Subjective Remarks: Patient seen in the day room eating lunch by himself in the corner. Chart reviewed. Patient compliant medication. Remains vigilant isolate to her times somewhat irritable with some mild thought blocking. Though is vague about any auditory perceptual abnormalities Depakote level drawn this a.m. is 49 and 1000 mg at at bedtime. Will increase at bedtime dose to 1250 mg check blood level in about 3 days Review of Systems All other systems reviewed negative except as stated in HPI Mental Status Examination Appearance: Dirty, Disheveled, Malodorous Consciousness: Alert, Other (Unable to assess) Orientation: Person (Vaguely) Motor Activity: Other (Ambulated about the unit without difficulty) Speech: Hesitant (Improving), Slow (Improving) Language: Other (Improving) Fund of Knowledge: Poor Attention and Concentration: Easily distracted Memory: Impaired Mood: Angry (Improving), Irritable (Improving) Affect: Other (Decreased range and intensity) Thought Process & Associations: Disorganized Thought Content: Other Hallucination Type: Auditory (Improving) Delusion Type: Paranoid (Improving) Suicidal Ideation: No Suicidal Plan: No Suicidal Intention: No Homicidal Ideation: No Homicidal Plan: No Homicidal Intention: No Insight: Poor Judgment: Poor Assessment and Plan - Assessment (1) Paranoid type schizophrenia, chronic state Code(s): F20.0 - Paranoid schizophrenia Status: Acute - Plan Plan: At this time patient remained psychotic, compliant medications see "adjustment above Justification for Continued Inpatient Stay: At this time patient would decompensate a place to a lower level of care Discharge Planning: To be determined Request Healthcare Surrogate/Guardian Advocate?: Yes
[2018-08-04] MEDS: Divalproex 250 MG ER Tablet PO SCH (20:39)
[2018-08-04] MEDS: Divalproex 500 MG ER Tablet PO SCH (20:40)
[2018-08-05] MEDS: Senna/Docusate Sodium 8.6/50 MG Tablet PO SCH ×2 (08:17→21:11)
--- NOTE | 2018-08-05 18:06 | P.PNPSY ---
Subjective Remarks: Reviewed electronic medical records and discussed case with staff. Follow-up was conducted in patient's room with JOSÉ Argueta present. Patient states that he is feeling "better". I note improvement in his mood from admission. He states that he slept good his appetite is been good and he denies any side effects from medication. He is actually pleasant and cooperative throughout the interview. Mental Status Examination Appearance: Dirty, Disheveled, Malodorous Consciousness: Alert, Other (Unable to assess) Orientation: Person (Vaguely) Motor Activity: Other (Ambulated about the unit without difficulty) Speech: Hesitant (Improving), Slow (Improving) Language: Other (Improving) Fund of Knowledge: Poor Attention and Concentration: Easily distracted Memory: Impaired Mood: Angry (Improving), Irritable (Improving) Affect: Other (Decreased range and intensity) Thought Process & Associations: Disorganized Thought Content: Other Hallucination Type: Auditory (Improving) Delusion Type: Paranoid (Improving) Suicidal Ideation: No Suicidal Plan: No Suicidal Intention: No Homicidal Ideation: No Homicidal Plan: No Homicidal Intention: No Insight: Poor Judgment: Poor Assessment and Plan - Assessment (1) Unspecified psychosis Code(s): F29 - Unspecified psychosis not due to a substance or known physiological condition Status: Acute - Plan Plan: Patient will be reevaluated Tuesday by the attending psychiatrist. Continue with current treatment plan. Justification for Continued Inpatient Stay: Moving this patient to a less restrictive environment would likely result in decompensation. Request Healthcare Surrogate/Guardian Advocate?: Yes
[2018-08-05] MEDS: Divalproex 500 MG ER Tablet PO SCH (21:10)
[2018-08-05] MEDS: Divalproex 250 MG ER Tablet PO SCH (21:11)
[2018-08-05] MEDS: Acetaminophen 325 MG Tablet PO PRN (21:14)
[2018-08-06] MEDS: Senna/Docusate Sodium 8.6/50 MG Tablet PO SCH ×2 (09:08→20:22)
--- NOTE | 2018-08-06 10:28 | P.PNPSY ---
Subjective Chief Complaint: Unspeficied Psychosis Remarks: Reviewed electronic medical records and discussed case with staff. Follow-up was conducted in patient's room with JOSÉ Argueta present. Patient is asking for a Nicotine patch. He states that he is feeling alot better. Sleeping and eating well. Denies any AVH. States that today his plan is to accomplish his ADLs and spend some time outside. Review of Systems All other systems reviewed negative except as stated in HPI Mental Status Examination Appearance: Appropriate Consciousness: Alert, Other (Unable to assess) Orientation: Person (Vaguely) Motor Activity: Other (Ambulated about the unit without difficulty) Speech: Hesitant (Improving), Slow (Improving) Language: Other (Improving) Fund of Knowledge: Poor Attention and Concentration: Easily distracted Memory: Impaired Mood: Appropriate Affect: Euthymic Thought Process & Associations: Disorganized Thought Content: Appropriate Hallucination Type: None Delusion Type: Paranoid (Improving) Suicidal Ideation: No Suicidal Plan: No Suicidal Intention: No Homicidal Ideation: No Homicidal Plan: No Homicidal Intention: No Insight: Fair Judgment: Poor Assessment and Plan - Assessment (1) Unspecified psychosis Code(s): F29 - Unspecified psychosis not due to a substance or known physiological condition Status: Acute - Plan Plan: Patient will be reevaluated Tuesday by the attending psychiatrist. Continue with current treatment plan. Justification for Continued Inpatient Stay: Moving patient to a less restrictive environment may result in his decompensation. Request Healthcare Surrogate/Guardian Advocate?: Yes
[2018-08-06] MEDS: Acetaminophen 325 MG Tablet PO PRN ×2 (17:51→20:21)
[2018-08-06] MEDS: Divalproex 500 MG ER Tablet PO SCH (20:21)
[2018-08-06] MEDS: Divalproex 250 MG ER Tablet PO SCH (20:22)
[2018-08-07] MEDS: Senna/Docusate Sodium 8.6/50 MG Tablet PO SCH ×2 (09:08→20:17)
[2018-08-07] MEDS: Acetaminophen 325 MG Tablet PO PRN ×2 (12:49→17:53)
--- NOTE | 2018-08-07 15:36 | P.PNPSY ---
Subjective Chief Complaint: Unspeficied Psychosis Remarks: Patient seen and sandoval somewhat vigilant and paranoid appears to be responding more to today to internal stimuli he still acknowledges voices. The stomach feel patient having's some increased auditory hallucinations we will increase his Resporal to 3 mg twice daily Review of Systems All other systems reviewed negative except as stated in HPI Mental Status Examination Appearance: Appropriate Consciousness: Alert, Other (Unable to assess) Orientation: Person (Vaguely) Motor Activity: Other (Ambulated about the unit without difficulty) Speech: Hesitant (Improving), Slow (Improving) Language: Other (Improving) Fund of Knowledge: Poor Attention and Concentration: Easily distracted Memory: Impaired Mood: Appropriate Affect: Euthymic Thought Process & Associations: Disorganized Thought Content: Appropriate Hallucination Type: Auditory (Somewhat intrusive) Delusion Type: Paranoid (Improving) Suicidal Ideation: No Suicidal Plan: No Suicidal Intention: No Homicidal Ideation: No Homicidal Plan: No Homicidal Intention: No Insight: Fair Judgment: Poor Assessment and Plan - Assessment (1) Paranoid type schizophrenia, chronic state Code(s): F20.0 - Paranoid schizophrenia Status: Acute - Plan Plan: Patient is showing some increased auditory hallucinations today and somewhat more paranoid and vigilant she medication adjustment Justification for Continued Inpatient Stay: At this time patient would decompensate a place to a lower level of care Discharge Planning: To be determined Request Healthcare Surrogate/Guardian Advocate?: Yes
[2018-08-07] MEDS: Divalproex 250 MG ER Tablet PO SCH (20:17)
[2018-08-07] MEDS: Divalproex 500 MG ER Tablet PO SCH (20:18)
[2018-08-08] MEDS: Senna/Docusate Sodium 8.6/50 MG Tablet PO SCH ×2 (09:39→20:35)
--- NOTE | 2018-08-08 12:51 | P.PNPSY ---
Subjective Chief Complaint: Unspeficied Psychosis Remarks: Patient seen in his room with floor staff, patient somewhat intense saying he is ready to be discharged. When asked about placement he became quite ambiguous. Then he said he can just go home with his mother. Patient appears to be responding to internal stimuli still we will adjust Depakote blood level to 1500 mg at at bedtime changed from the Depakote DR to Depakote ER check level in 3 days Review of Systems All other systems reviewed negative except as stated in HPI Mental Status Examination Appearance: Appropriate Consciousness: Alert, Other (Unable to assess) Orientation: Person (Vaguely) Motor Activity: Other (Ambulated about the unit without difficulty) Speech: Hesitant (Improving), Slow (Improving) Language: Other (Improving) Fund of Knowledge: Poor Attention and Concentration: Easily distracted Memory: Impaired Mood: Appropriate, Irritable Affect: Other (Slight increased range and intensity) Thought Process & Associations: Disorganized Thought Content: Appropriate Hallucination Type: Auditory (Somewhat intrusive) Delusion Type: Paranoid (Improving) Suicidal Ideation: No Suicidal Plan: No Suicidal Intention: No Homicidal Ideation: No Homicidal Plan: No Homicidal Intention: No Insight: Fair Judgment: Poor Assessment and Plan - Assessment (1) Paranoid type schizophrenia, chronic state Code(s): F20.0 - Paranoid schizophrenia Status: Acute - Plan Plan: Patient somewhat vigilant and psychotic today she medication adjustment above for now continue treatment. We will have counselor attempt to discover appropriate placement Justification for Continued Inpatient Stay: At this time patient would decompensate a place to a lower level of care Discharge Planning: To be determined Request Healthcare Surrogate/Guardian Advocate?: Yes
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
[2018-08-08] MEDS: Lisinopril 10 MG Tablet PO SCH (18:32)
[2018-08-08] MEDS: Divalproex 500 MG ER Tablet PO SCH (20:35)
[2018-08-09] MEDS: Senna/Docusate Sodium 8.6/50 MG Tablet PO SCH ×2 (09:14→20:42)
[2018-08-09] MEDS: Lisinopril 10 MG Tablet PO SCH (09:14)
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
[2018-08-09] MEDS: Acetaminophen 325 MG Tablet PO PRN (12:48)
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
[2018-08-09] MEDS: Divalproex 500 MG ER Tablet PO SCH (20:41)
[2018-08-10] MEDS: Senna/Docusate Sodium 8.6/50 MG Tablet PO SCH ×3 (08:36→20:52)
[2018-08-10] MEDS: Lisinopril 10 MG Tablet PO SCH (08:36)
[2018-08-10] MEDS: Acetaminophen 325 MG Tablet PO PRN ×3 (12:06→23:08)
--- NOTE | 2018-08-10 12:36 | P.PNPSY ---
Subjective Chief Complaint: Unspeficied Psychosis Remarks: Patient seen in day room with nurse Hernandez, chart reviewed, patient compliant medications. Patient somewhat withdrawn today, denies voices but today appears to be responding to internal stimuli. Remains cooperative continues to allow us to help him find an appropriate placement Review of Systems All other systems reviewed negative except as stated in HPI Mental Status Examination Appearance: Appropriate Consciousness: Alert, Other (Unable to assess) Orientation: Person (Vaguely) Motor Activity: Other (Ambulated about the unit without difficulty) Speech: Hesitant (Improving), Slow (Improving) Language: Other (Improving) Fund of Knowledge: Poor Attention and Concentration: Easily distracted Memory: Impaired Mood: Appropriate, Angry, Irritable Affect: Other (Slight increased range and intensity) Thought Process & Associations: Disorganized Thought Content: Appropriate Hallucination Type: Auditory (Somewhat intrusive) Delusion Type: Paranoid (Improving) Suicidal Ideation: No Suicidal Plan: No Suicidal Intention: No Homicidal Ideation: No Homicidal Plan: No Homicidal Intention: No Insight: Fair Judgment: Poor Assessment and Plan - Assessment (1) Paranoid type schizophrenia, chronic state Code(s): F20.0 - Paranoid schizophrenia Status: Acute - Plan Plan: Patient somewhat withdrawn today I saw remains vigilant appears to be responding to internal stimuli Justification for Continued Inpatient Stay: At this time patient would decompensate a place to a lower level of care Discharge Planning: To be determined Request Healthcare Surrogate/Guardian Advocate?: Yes
[2018-08-10] MEDS: Divalproex 500 MG ER Tablet PO SCH (20:52)
[2018-08-11] MEDS: Lisinopril 10 MG Tablet PO SCH (08:15)
[2018-08-11] MEDS: Senna/Docusate Sodium 8.6/50 MG Tablet PO SCH ×2 (08:16→20:42)
--- NOTE | 2018-08-11 15:30 | P.PNPSY ---
Subjective Chief Complaint: Unspeficied Psychosis Remarks: Patient seen in day room with floor staff, chart reviewed, patient is more angry and paranoid vigilant today now stating the little black people living in [facility]. At wondering what we can see them. Patient has been compliant with his medications. And no other behavioral problem. We will increase scheduled Resporal to 4 mg twice daily Review of Systems All other systems reviewed negative except as stated in HPI Mental Status Examination Appearance: Appropriate Consciousness: Alert, Other (Unable to assess) Orientation: Person (Vaguely) Motor Activity: Other (Ambulated about the unit without difficulty) Speech: Pressured, Rapid Language: Other (Improving) Fund of Knowledge: Poor Attention and Concentration: Easily distracted Memory: Impaired Mood: Angry, Oppositional, Irritable Affect: Other (Slight increased range and intensity) Thought Process & Associations: Disorganized Thought Content: Bizarre thinking Hallucination Type: Auditory (Somewhat intrusive) Delusion Type: Paranoid (Improving) Suicidal Ideation: No Suicidal Plan: No Suicidal Intention: No Homicidal Ideation: No Homicidal Plan: No Homicidal Intention: No Insight: Fair Judgment: Poor Assessment and Plan - Assessment (1) Paranoid type schizophrenia, chronic state Code(s): F20.0 - Paranoid schizophrenia Status: Acute - Plan Plan: Patient showing increased signs of psychosis today with significant paranoid delusions C medication adjustment above Justification for Continued Inpatient Stay: This time patient would decompensate a place to a lower level of care Discharge Planning: To be determined Request Healthcare Surrogate/Guardian Advocate?: Yes
[2018-08-11] MEDS: Divalproex 500 MG ER Tablet PO SCH (20:42)
[2018-08-11] MEDS: Acetaminophen 325 MG Tablet PO PRN (20:43)
[2018-08-12] MEDS: Lisinopril 10 MG Tablet PO SCH (09:03)
[2018-08-12] MEDS: Senna/Docusate Sodium 8.6/50 MG Tablet PO SCH ×2 (09:04→21:38)
[2018-08-12] MEDS: Acetaminophen 325 MG Tablet PO PRN (11:04)
--- NOTE | 2018-08-12 15:21 | P.PNPSY ---
Subjective Chief Complaint: Unspeficied Psychosis Remarks: Reviewed electronic medical records and discussed case with staff. Follow-up was conducted in the hallway with JOSÉ Felix present. Patient reports he has been sleeping and eating well. When asked how his mood is today he responds, "blank I am ruled by blankness". He still has a flat affect but denies any side effects from the medication. He goes on to state, "it is the way to the anointing". He then states, "the naheed in the ski mask is been bothering me he is not an adult." Mental Status Examination Appearance: Appropriate Consciousness: Alert, Other (Unable to assess) Orientation: Person (Vaguely) Motor Activity: Other (Ambulated about the unit without difficulty) Speech: Pressured, Rapid Language: Other (Improving) Fund of Knowledge: Poor Attention and Concentration: Easily distracted Memory: Impaired Mood: Angry, Oppositional, Irritable Affect: Other (Slight increased range and intensity) Thought Process & Associations: Disorganized Thought Content: Bizarre thinking Hallucination Type: Auditory (Somewhat intrusive) Delusion Type: Paranoid (Improving) Suicidal Ideation: No Suicidal Plan: No Suicidal Intention: No Homicidal Ideation: No Homicidal Plan: No Homicidal Intention: No Insight: Fair Judgment: Poor Assessment and Plan - Assessment (1) Unspecified psychosis Code(s): F29 - Unspecified psychosis not due to a substance or known physiological condition Status: Acute - Plan Plan: Patient will be reevaluated Tuesday by the attending psychiatrist. Continue with current treatment plan. Discharge planning is in progress. Justification for Continued Inpatient Stay: Moving this patient to a less restrictive environment would likely result in decompensation. Request Healthcare Surrogate/Guardian Advocate?: Yes
[2018-08-12] MEDS: Divalproex 500 MG ER Tablet PO SCH (21:38)
[2018-08-13] MEDS: Lisinopril 10 MG Tablet PO SCH (08:55)
[2018-08-13] MEDS: Senna/Docusate Sodium 8.6/50 MG Tablet PO SCH ×2 (08:55→21:00)
--- NOTE | 2018-08-13 15:29 | P.PNPSY ---
Subjective Chief Complaint: Unspeficied Psychosis Remarks: Reviewed electronic medical records and discussed case with staff. Follow-up was conducted in patient's room with JOSÉ Carroll. Patient is very psychotic and screaming. He was accusing staff of trying to hurt him and felt that people were after him. He agreed to take his morning medications. He started to escalate so he was relocated to 2700 and he did take his medications. Later in the morning he was quiet and appeared to have settled down. He was not a behavioral problem, he appeared to be internally stimulated and psychotic. Review of Systems All other systems reviewed negative except as stated in HPI Mental Status Examination Appearance: Appropriate Consciousness: Alert Orientation: Person Motor Activity: Other (Ambulated about the unit without difficulty) Speech: Pressured, Rapid Language: Other (Improving) Fund of Knowledge: Poor Attention and Concentration: Easily distracted Memory: Impaired Mood: Angry, Oppositional, Irritable Affect: Other (Slight increased range and intensity) Thought Process & Associations: Disorganized Thought Content: Bizarre thinking Hallucination Type: Auditory (Somewhat intrusive) Delusion Type: Paranoid (Improving) Suicidal Ideation: No Suicidal Plan: No Suicidal Intention: No Homicidal Ideation: No Homicidal Plan: No Homicidal Intention: No Insight: Fair Judgment: Poor Assessment and Plan - Assessment (1) Unspecified psychosis Code(s): F29 - Unspecified psychosis not due to a substance or known physiological condition Status: Acute - Plan Plan: Patient will be reevaluated Tuesday by the attending psychiatrist. Continue with current treatment plan. Discharge planning is in progress. Justification for Continued Inpatient Stay: This patient was transferred from 2600 to 2700 to manage his care. He was extremely psychotic this morning and was unable to focus. He required movement to a higher level of care to manage his psychosis. Request Healthcare Surrogate/Guardian Advocate?: Yes
[2018-08-13] MEDS: Acetaminophen 325 MG Tablet PO PRN (18:00)
[2018-08-13] MEDS: Divalproex 500 MG ER Tablet PO SCH (21:00)
[2018-08-14] MEDS: Senna/Docusate Sodium 8.6/50 MG Tablet PO SCH ×2 (08:38→21:43)
[2018-08-14] MEDS: Lisinopril 10 MG Tablet PO SCH (08:38)
[2018-08-14] MEDS: Acetaminophen 325 MG Tablet PO PRN ×2 (09:15→18:00)
--- NOTE | 2018-08-14 13:13 | P.TTN ---
- Patient Problems Problems: 1. Discharge planning 2. Medication compliance 3. Knowledge deficit 4. Lack of coping skills - Progress Toward Goals Provider Present: Dr. Elsa Yadav Provider Input: 08/09 patient on medications now, still psychotic. 08/04Patient has been uncooperative, decreased energy and requires further stabilization. needs stabilization and placement as he was displaced from [place] and ended up in [facility]- family is assisting with an [facility] and want referral faxed. 917 patient needs further stabilization, Dr. Yadav is titrating medications, patient attends select groups, mostly isolates to himself and is seclusive to his room. Psychiatric Counselors Present: Nita Armendariz LCSW (08/07 needs stabilization and placement as he was displaced from [place] and ended up in [facility]- family is assisting with an [facility] and want referral faxed. Will fax once finding another fdc ), Toro Medel Jr., [facility] (08-14-2018 patient is displaced from [facility] and in need of placement. Patient new to 2700, disposal plan unclear at this time.) Psychiatric Therapist Input: 08/09 needs [facility], was displaced and unable to be stable out in community by self, mother and brother have found an [facility] , faxed referral, awaiting answer. Aurelia- Patient remins psychtic, delusional adn is uncooperative Group Spec/RT/OT/MEJIA Present: Keerthi Otero, DAYAN Group Spec/RT/OT/MEJIA Input: 08/09 still no group attendance- yells often, upset and aggitated. Patient does not attend groups. 08-14-2018 patient attends select groups but is mostly seclusive to his room. - Documentation Teaching Recipient: Patient
--- NOTE | 2018-08-14 15:28 | P.PNPSY ---
Subjective Chief Complaint: Unspeficied Psychosis Remarks: Patient seen in his room with nurse Yari, patient initially laying quietly in bed though as we talked became more more angry yelling at all the "children" out there and how the "N" word and doctors got him in here. Patient has been compliant with medications. He is on a total of 8 mg Resporal daily at this time we will increase his Depakote to 1750 mg daily continue the addition of in Yang sustain a to the regimen Review of Systems All other systems reviewed negative except as stated in HPI Mental Status Examination Appearance: Appropriate Consciousness: Alert Orientation: Person Motor Activity: Other (Ambulated about the unit without difficulty) Speech: Pressured, Rapid Language: Other (Improving) Fund of Knowledge: Poor Attention and Concentration: Easily distracted Memory: Impaired Mood: Angry, Oppositional, Irritable Affect: Other (Marked increased range and intensity) Thought Process & Associations: Disorganized Thought Content: Bizarre thinking Hallucination Type: Auditory (Somewhat intrusive) Delusion Type: Paranoid (Improving) Suicidal Ideation: No Suicidal Plan: No Suicidal Intention: No Homicidal Ideation: No Homicidal Plan: No Homicidal Intention: No Insight: Fair Judgment: Poor Assessment and Plan - Assessment (1) Paranoid type schizophrenia, chronic state Code(s): F20.0 - Paranoid schizophrenia Status: Acute - Plan Plan: Patient is showing increased psychosis delusions and paranoia. She medication adjustment above Justification for Continued Inpatient Stay: At this time patient would decompensate a place to a lower level of care Discharge Planning: To be determined Request Healthcare Surrogate/Guardian Advocate?: Yes
[2018-08-14] MEDS: Divalproex 500 MG ER Tablet PO SCH (21:42)
[2018-08-14] MEDS: Divalproex 250 MG ER Tablet PO SCH (21:43)
[2018-08-15] MEDS: Senna/Docusate Sodium 8.6/50 MG Tablet PO SCH ×2 (08:15→20:15)
[2018-08-15] MEDS: Lisinopril 10 MG Tablet PO SCH (08:15)
[2018-08-15] MEDS: Acetaminophen 325 MG Tablet PO PRN (11:17)
--- NOTE | 2018-08-15 15:38 | P.PNPSY ---
Subjective Chief Complaint: Unspeficied Psychosis Remarks: Patient seen today in day room with nurse Jacey. Chart reviewed. Patient compliant medication. Patient much calmer today with increased focus his anger paranoia have significantly diminished he is alert oriented with good eye contact. He is asking when he can go home. He denies voices at the present time. For now continue treatment Review of Systems All other systems reviewed negative except as stated in HPI Mental Status Examination Appearance: Appropriate Consciousness: Alert Orientation: Person Motor Activity: Other (Ambulated about the unit without difficulty) Speech: Pressured (Calmer), Rapid (Calmer) Language: Other (Improving) Fund of Knowledge: Poor Attention and Concentration: Easily distracted Memory: Impaired Mood: Other (Calmer and less angry) Affect: Other (Range and intensity calmer) Thought Process & Associations: Disorganized Thought Content: Bizarre thinking Hallucination Type: Auditory (Somewhat intrusive) Delusion Type: Paranoid (Improving) Suicidal Ideation: No Suicidal Plan: No Suicidal Intention: No Homicidal Ideation: No Homicidal Plan: No Homicidal Intention: No Insight: Fair Judgment: Poor Assessment and Plan - Assessment (1) Paranoid type schizophrenia, chronic state Code(s): F20.0 - Paranoid schizophrenia Status: Acute - Plan Plan: Patient continues psychotic though somewhat improved today, compliant medication Justification for Continued Inpatient Stay: At this time patient would decompensate a place to a lower level of care Discharge Planning: To be determined Request Healthcare Surrogate/Guardian Advocate?: Yes
[2018-08-15] MEDS: Divalproex 250 MG ER Tablet PO SCH (20:05)
[2018-08-15] MEDS: Divalproex 500 MG ER Tablet PO SCH (20:17)
[2018-08-16] MEDS: Senna/Docusate Sodium 8.6/50 MG Tablet PO SCH ×2 (08:27→20:18)
[2018-08-16] MEDS: Lisinopril 10 MG Tablet PO SCH (08:27)
--- NOTE | 2018-08-16 11:54 | P.PNPSY ---
Subjective Chief Complaint: Unspeficied Psychosis Remarks: Reviewed electronic medical records and discussed case with staff. Follow-up was conducted in the milieu with JOSÉ Rodriguez present. Patient seems to be in a better mood and much calmer. He states that he sleeping well and his appetite is been good. He denies any side effects. Still a little bit confused when asked about where he would be going when he leaves here he reports, "I am supposed to go into the local program". Mental Status Examination Appearance: Appropriate Consciousness: Alert Orientation: Person Motor Activity: Other (Ambulated about the unit without difficulty) Speech: Pressured (Calmer), Rapid (Calmer) Language: Other (Improving) Fund of Knowledge: Poor Attention and Concentration: Easily distracted Memory: Impaired Mood: Other (Calmer and less angry) Affect: Other (Range and intensity calmer) Thought Process & Associations: Disorganized Thought Content: Bizarre thinking Hallucination Type: Auditory (Somewhat intrusive) Delusion Type: Paranoid (Improving) Suicidal Ideation: No Suicidal Plan: No Suicidal Intention: No Homicidal Ideation: No Homicidal Plan: No Homicidal Intention: No Insight: Fair Judgment: Poor Assessment and Plan - Assessment (1) Unspecified psychosis Code(s): F29 - Unspecified psychosis not due to a substance or known physiological condition Status: Acute - Plan Plan: Continue with current treatment plan. Patient seems to be showing improvement. Discharge planning in progress. Justification for Continued Inpatient Stay: Moving this patient to a less restrictive environment would likely result in decompensation. Discharge Planning: To be determined Request Healthcare Surrogate/Guardian Advocate?: Yes
[2018-08-16] MEDS: Divalproex 250 MG ER Tablet PO SCH (20:17)
[2018-08-16] MEDS: Divalproex 500 MG ER Tablet PO SCH (20:17)
[2018-08-17] MEDS: Acetaminophen 325 MG Tablet PO PRN ×3 (09:06→23:11)
[2018-08-17] MEDS: Lisinopril 10 MG Tablet PO SCH (09:07)
[2018-08-17] MEDS: Senna/Docusate Sodium 8.6/50 MG Tablet PO SCH ×2 (09:08→20:33)
--- NOTE | 2018-08-17 11:56 | P.PNPSY ---
Subjective Chief Complaint: Unspeficied Psychosis Remarks: Reviewed electronic medical records and discussed case with staff. Follow-up was conducted in the day room. Staff reports that patient had an outburst this morning when the collaborating supervising physician attempted to draw his blood work. Of note his Depakote level is therapeutic at 72. Patient is quite pleasant when I conducted his follow-up in the day room. He reports that he slept well and his appetite is been good. He states that he feels he is doing well with the medications. He is actually quite chatty and pleasant today. Mental Status Examination Appearance: Appropriate Consciousness: Alert Orientation: Person Motor Activity: Other (Ambulated about the unit without difficulty) Speech: Pressured (Calmer), Rapid (Calmer) Language: Other (Improving) Fund of Knowledge: Poor Attention and Concentration: Easily distracted Memory: Impaired Mood: Other (Calmer and less angry) Affect: Other (Range and intensity calmer) Thought Process & Associations: Disorganized Thought Content: Bizarre thinking Hallucination Type: Auditory (Somewhat intrusive) Delusion Type: Paranoid (Improving) Suicidal Ideation: No Suicidal Plan: No Suicidal Intention: No Homicidal Ideation: No Homicidal Plan: No Homicidal Intention: No Insight: Fair Judgment: Poor Assessment and Plan - Assessment (1) Unspecified psychosis Code(s): F29 - Unspecified psychosis not due to a substance or known physiological condition Status: Acute - Plan Plan: Continue with current treatment plan. Counselor to start working on a discharge plan. Patient will require safe placement due to his former residence being close down. Justification for Continued Inpatient Stay: Moving this patient to a less restrictive environment would likely result in decompensation. Request Healthcare Surrogate/Guardian Advocate?: Yes
[2018-08-17] MEDS: Divalproex 250 MG ER Tablet PO SCH (20:33)
[2018-08-17] MEDS: Divalproex 500 MG ER Tablet PO SCH (20:33)
[2018-08-18] MEDS: Senna/Docusate Sodium 8.6/50 MG Tablet PO SCH ×2 (08:26→21:18)
[2018-08-18] MEDS: Lisinopril 10 MG Tablet PO SCH (08:27)
--- NOTE | 2018-08-18 17:46 | P.PNPSY ---
Subjective Chief Complaint: Unspeficied Psychosis Remarks: Patient was seen today for psychiatric reevaluation. Patient was widely discussed with nursing charge. My psychiatric evaluation the patient is resistant, oppositional, he seems to be internally preoccupied and paranoid. Refused to answer my questions. As I am talking to him to put the blanket over his face. As per nurse in charge, the patient has being compliant with his medications, minutes before he was talking with her and thecs Mental Status Examination Appearance: Appropriate Consciousness: Alert Orientation: Person Motor Activity: Other (Ambulated about the unit without difficulty) Speech: Pressured (Calmer), Rapid (Calmer) Language: Other (Improving) Fund of Knowledge: Poor Attention and Concentration: Easily distracted Memory: Impaired Mood: Other (Calmer and less angry) Affect: Other (Range and intensity calmer) Thought Process & Associations: Disorganized Thought Content: Bizarre thinking Hallucination Type: Auditory (Somewhat intrusive) Delusion Type: Paranoid (Improving) Suicidal Ideation: No Suicidal Plan: No Suicidal Intention: No Homicidal Ideation: No Homicidal Plan: No Homicidal Intention: No Insight: Fair Judgment: Poor Assessment and Plan - Assessment (1) Paranoid type schizophrenia, chronic state Code(s): F20.0 - Paranoid schizophrenia Status: Acute - Plan Plan: Continue current psychotropic regimen. Justification for Continued Inpatient Stay: Patient continues to be psychotic, continue psychiatric hospitalization for stabilization. Request Healthcare Surrogate/Guardian Advocate?: Yes
[2018-08-18] MEDS: Acetaminophen 325 MG Tablet PO PRN (18:38)
[2018-08-18] MEDS: Divalproex 250 MG ER Tablet PO SCH (21:18)
[2018-08-18] MEDS: Divalproex 500 MG ER Tablet PO SCH (21:18)
[2018-08-19] MEDS: Lisinopril 10 MG Tablet PO SCH (08:52)
[2018-08-19] MEDS: Senna/Docusate Sodium 8.6/50 MG Tablet PO SCH ×2 (08:52→20:23)
[2018-08-19] MEDS: Acetaminophen 325 MG Tablet PO PRN (10:04)
--- NOTE | 2018-08-19 14:52 | P.PNPSY ---
Subjective Chief Complaint: Unspeficied Psychosis Remarks: Pt seen and discussed with staff. He has been compliant with medications. He is irritable and guarded. Staff report that last night he was responding to internal stimuli and isolative to his room. Today, he has been out and participating some in activities. No SI/HI. Mental Status Examination Appearance: Appropriate Consciousness: Alert Orientation: Person Motor Activity: Other (Ambulated about the unit without difficulty) Speech: Pressured (Calmer), Rapid (Calmer) Language: Other (Improving) Fund of Knowledge: Poor Attention and Concentration: Easily distracted Memory: Impaired Mood: Other (Calmer and less angry) Affect: Other (Range and intensity calmer) Thought Process & Associations: Disorganized Thought Content: Bizarre thinking Hallucination Type: Auditory Delusion Type: Paranoid Suicidal Ideation: No Suicidal Plan: No Suicidal Intention: No Homicidal Ideation: No Homicidal Plan: No Homicidal Intention: No Insight: Fair Judgment: Poor Assessment and Plan - Assessment (1) Paranoid type schizophrenia, chronic state Code(s): F20.0 - Paranoid schizophrenia Status: Acute - Plan Plan: Continue current tx plan Justification for Continued Inpatient Stay: impairments in reality tsting Request Healthcare Surrogate/Guardian Advocate?: Yes
[2018-08-19] MEDS: Divalproex 250 MG ER Tablet PO SCH (20:23)
[2018-08-19] MEDS: Divalproex 500 MG ER Tablet PO SCH (20:23)
[2018-08-20] MEDS: Senna/Docusate Sodium 8.6/50 MG Tablet PO SCH ×2 (08:28→21:09)
[2018-08-20] MEDS: Lisinopril 10 MG Tablet PO SCH (08:28)
[2018-08-20] MEDS: Acetaminophen 325 MG Tablet PO PRN (08:33)
--- NOTE | 2018-08-20 13:29 | P.PNPSY ---
Subjective Chief Complaint: Unspeficied Psychosis Remarks: Medical records reviewed and discussed with nursing staff. JOSÉ Mari and I met with patient in day room. He is calm and quiet. States that his medications are working. Nursing staff reports that he has spirts of anger, coming to the desk demanding coffee and mumbling curse words. Patient has been hypertensive. Hospitalist has seen the patient and he started on Lisinopril. Review of Systems All other systems reviewed negative except as stated in HPI Mental Status Examination Appearance: Appropriate Consciousness: Alert Orientation: Person Motor Activity: Other (Ambulated about the unit without difficulty) Speech: Pressured (Calmer), Rapid (Calmer) Language: Other (Improving) Fund of Knowledge: Poor Attention and Concentration: Easily distracted Memory: Impaired Mood: Other (Calmer and less angry) Affect: Other (Range and intensity calmer) Thought Process & Associations: Disorganized Thought Content: Bizarre thinking Hallucination Type: Auditory Delusion Type: Paranoid Suicidal Ideation: No Suicidal Plan: No Suicidal Intention: No Homicidal Ideation: No Homicidal Plan: No Homicidal Intention: No Insight: Fair Judgment: Poor Assessment and Plan - Assessment (1) Unspecified psychosis Code(s): F29 - Unspecified psychosis not due to a substance or known physiological condition Status: Acute - Plan Plan: Continue current tx plan Justification for Continued Inpatient Stay: Moving patient to a less restrictive environment may result in his decompensation. Request Healthcare Surrogate/Guardian Advocate?: Yes
[2018-08-20] MEDS: Divalproex 500 MG ER Tablet PO SCH (21:09)
[2018-08-20] MEDS: Divalproex 250 MG ER Tablet PO SCH (21:10)
[2018-08-21] MEDS: Lisinopril 10 MG Tablet PO SCH (08:09)
[2018-08-21] MEDS: Senna/Docusate Sodium 8.6/50 MG Tablet PO SCH ×2 (08:09→20:23)
[2018-08-21] MEDS: Acetaminophen 325 MG Tablet PO PRN (08:31)
--- NOTE | 2018-08-21 16:13 | P.PNPSY ---
Subjective Chief Complaint: Unspeficied Psychosis Remarks: Reviewed electronic medical records and discussed case with staff. Follow-up was conducted in patient's room with JOSÉ Mari present. Patient was found lying on the bed. He asks when he can go home. When advised that they closed the place was living he starts talking about and "Renny talking in my ear that reads the Bible"and from there he begins rambling low-volume. His nurse reports he still has some irritable moments and can be labile. I will increase his Depakote to 2000 mg and schedule a recheck of his level on 08/24. Mental Status Examination Appearance: Appropriate Consciousness: Alert Orientation: Person Motor Activity: Other (Ambulated about the unit without difficulty) Speech: Pressured (Calmer), Rapid (Calmer) Language: Other (Improving) Fund of Knowledge: Poor Attention and Concentration: Easily distracted Memory: Impaired Mood: Other (Calmer and less angry) Affect: Other (Range and intensity calmer) Thought Process & Associations: Disorganized Thought Content: Bizarre thinking Hallucination Type: Auditory Delusion Type: Paranoid Suicidal Ideation: No Suicidal Plan: No Suicidal Intention: No Homicidal Ideation: No Homicidal Plan: No Homicidal Intention: No Insight: Fair Judgment: Poor Assessment and Plan - Assessment (1) Unspecified psychosis Code(s): F29 - Unspecified psychosis not due to a substance or known physiological condition Status: Acute - Plan Plan: Patient will be reevaluated Tuesday by the attending psychiatrist. Continue with current treatment plan. Justification for Continued Inpatient Stay: Moving this patient to a less restrictive environment would likely result in decompensation. Discharge Planning: Discharge planning is in progress. Request Healthcare Surrogate/Guardian Advocate?: Yes
[2018-08-21] MEDS: Divalproex 250 MG ER Tablet PO SCH (20:22)
[2018-08-21] MEDS: Divalproex 500 MG ER Tablet PO SCH (20:22)
[2018-08-22] MEDS: Senna/Docusate Sodium 8.6/50 MG Tablet PO SCH ×2 (08:18→20:31)
[2018-08-22] MEDS: Lisinopril 10 MG Tablet PO SCH (08:18)
[2018-08-22] MEDS: Acetaminophen 325 MG Tablet PO PRN (08:52)
--- NOTE | 2018-08-22 11:45 | P.PNPSY ---
Subjective Chief Complaint: Unspeficied Psychosis Remarks: Patient seen and examined with nurse in coverage for Dr. Yadav. Chart reviewed. Case discussed with nursing staff. Patient noted to be medication compliant. He does reportedly complain of anxiety fairly consistently in the morning which responds well to hydroxyzine, and nurse wonders about scheduling a dose of hydroxyzine in the morning for the patient. On my examination today, the patient complains of feeling anxious. He says that he is anxious to return home. He denies any SI or HI. Denies any AVH. Denies any side effects from medications. Agreeable to adding a scheduled dose of hydroxyzine. He does complain of subjective rapid heart rate without associated cardiac or other symptoms. In particular he denies any chest pain, shortness of breath, bowel or bladder issues. No other physical complaints. Vital Signs Temp Pulse Resp BP Pulse Ox 08/22/18 11:55 97.9 F 96 H 18 136/95 H 98 08/22/18 06:19 97.2 F L 63 18 117/72 98 08/21/18 15:21 98.1 F 82 18 111/78 100 Labs reviewed. No new labs. Review of Systems All other systems reviewed negative except as stated in HPI Mental Status Examination Appearance: Appropriate Consciousness: Alert Orientation: Person, Place (At least) Motor Activity: Other (No motor abnormalities noted) Speech: Unremarkable Language: Adequate Fund of Knowledge: Poor Attention and Concentration: Other (Fair) Memory: Impaired Mood: Other (Calm) Affect: Blunt Thought Process & Associations: Circumstantial Thought Content: Appropriate Hallucination Type: None Delusion Type: None, Paranoid Suicidal Ideation: No Suicidal Plan: No Suicidal Intention: No Homicidal Ideation: No Homicidal Plan: No Homicidal Intention: No Insight: Fair Judgment: Poor Assessment and Plan - Assessment (1) Paranoid type schizophrenia, chronic state Code(s): F20.0 - Paranoid schizophrenia Status: Acute - Plan Plan: Add scheduled morning dose of hydroxyzine. Continue other psychotropics as ordered. Check EKG for patient's complaint of subjective rapid heart rate. If abnormal, may need to consider hospitalist consultation. Continue to monitor on the inpatient unit. Continue other care as ordered. Justification for Continued Inpatient Stay: Medication changes. Risk for decompensation in less restrictive environment. Discharge Planning: Per Dr. Caliendo Request Healthcare Surrogate/Guardian Advocate?: Yes
[2018-08-22] MEDS: Divalproex 500 MG ER Tablet PO SCH (20:29)
[2018-08-22] MEDS: Divalproex 250 MG ER Tablet PO SCH (20:30)
--- NOTE | 2018-08-22 22:37 | ECG ---
Date Performed: 08/22/2018 Time Performed: 15:33:26 PTAGE: 52 years EKG: Sinus rhythm NORMAL ECG PREVIOUS TRACING : 07/31/2018 09.35 Since the previous tracing, no significant change noted DOCTOR: Siobhan Bertrand Interpretating Date/Time 08/22/2018 22:35:40
[2018-08-23] MEDS: Lisinopril 10 MG Tablet PO SCH (09:01)
[2018-08-23] MEDS: Senna/Docusate Sodium 8.6/50 MG Tablet PO SCH ×2 (09:02→20:09)
--- NOTE | 2018-08-23 16:56 | P.PNPSY ---
Subjective Chief Complaint: Unspeficied Psychosis Remarks: Patient is seen today in his room with nurse Naz, chart reviewed, patient discussed with nurse patient had just finished dinner, laying down, however he did talk to be fairly calmly today when I questioned him about any auditory hallucinations he became angry denying voices then went into paranoid discussion about uses and uses being the only voice she was here Review of Systems All other systems reviewed negative except as stated in HPI Mental Status Examination Appearance: Appropriate Consciousness: Alert Orientation: Person, Place (At least) Motor Activity: Other (No motor abnormalities noted) Speech: Unremarkable Language: Adequate Fund of Knowledge: Poor Attention and Concentration: Other (Fair) Memory: Impaired Mood: Other (Calm) Affect: Blunt Thought Process & Associations: Circumstantial Thought Content: Appropriate Hallucination Type: None Delusion Type: None, Paranoid Suicidal Ideation: No Suicidal Plan: No Suicidal Intention: No Homicidal Ideation: No Homicidal Plan: No Homicidal Intention: No Insight: Fair Judgment: Poor Assessment and Plan - Assessment (1) Paranoid type schizophrenia, chronic state Code(s): F20.0 - Paranoid schizophrenia Status: Acute - Plan Plan: Patient remains somewhat labile paranoid and delusional. Compliant medications Justification for Continued Inpatient Stay: At this time patient would decompensate a place to the lower level of care Discharge Planning: To be determined Request Healthcare Surrogate/Guardian Advocate?: Yes
[2018-08-23] MEDS: Acetaminophen 325 MG Tablet PO PRN (18:18)
[2018-08-23] MEDS: Divalproex 500 MG ER Tablet PO SCH (20:08)
[2018-08-23] MEDS: Divalproex 250 MG ER Tablet PO SCH (20:09)
[2018-08-24] MEDS: Senna/Docusate Sodium 8.6/50 MG Tablet PO SCH ×2 (08:55→21:36)
[2018-08-24] MEDS: Lisinopril 10 MG Tablet PO SCH (08:55)
--- NOTE | 2018-08-24 16:46 | P.PNPSY ---
Subjective Chief Complaint: Unspeficied Psychosis Remarks: Patient seen today with medical student Shyla, patient in his room, chart reviewed, patient overall compliant medication. Patient continues angry paranoid vigilant with me today stating he did not want to talk to me because he wanted to take a nap Review of Systems All other systems reviewed negative except as stated in HPI Mental Status Examination Appearance: Appropriate Consciousness: Alert Orientation: Person, Place (At least) Motor Activity: Other (No motor abnormalities noted) Speech: Unremarkable Language: Adequate Fund of Knowledge: Poor Attention and Concentration: Other (Fair) Memory: Impaired Mood: Other (Calm) Affect: Blunt Thought Process & Associations: Circumstantial Thought Content: Appropriate Hallucination Type: None Delusion Type: None, Paranoid Suicidal Ideation: No Suicidal Plan: No Suicidal Intention: No Homicidal Ideation: No Homicidal Plan: No Homicidal Intention: No Insight: Fair Judgment: Poor Assessment and Plan - Assessment (1) Paranoid type schizophrenia, chronic state Code(s): F20.0 - Paranoid schizophrenia Status: Acute - Plan Plan: Patient remained psychotic delusional low compliant medication. Justification for Continued Inpatient Stay: At this time patient would decompensate a place to a lower level of care Discharge Planning: To be determined Request Healthcare Surrogate/Guardian Advocate?: Yes
[2018-08-24] MEDS ORDERED: Haloperidol Inj 5 MG/ML Ampul ONE (17:43)
[2018-08-24] MEDS: Divalproex 500 MG ER Tablet PO SCH (21:35)
[2018-08-24] MEDS: Acetaminophen 325 MG Tablet PO PRN (21:43)
[2018-08-25] MEDS: Senna/Docusate Sodium 8.6/50 MG Tablet PO SCH ×2 (09:17→20:07)
[2018-08-25] MEDS: Lisinopril 10 MG Tablet PO SCH (09:17)
--- NOTE | 2018-08-25 15:30 | P.PNPSY ---
Subjective Chief Complaint: Unspeficied Psychosis Remarks: Patient's Depakote blood level was 67 on 08/24 2:50 AM 1500 p.m. We will increase to 500 mg a.m. continue 1500 mg at at bedtime and check blood level 08/29. Patient seen in his room with nurse Siomara and medical student Nella, chart reviewed, patient compliant medication. Patient remains psychotic vigilant though his affect is calmer and softer today. He gives some confusing story about staying with somebody called Lucius I am he does not know where it was or what it is. Review of Systems All other systems reviewed negative except as stated in HPI Mental Status Examination Appearance: Appropriate Consciousness: Alert Orientation: Person, Place (At least) Motor Activity: Other (No motor abnormalities noted) Speech: Unremarkable Language: Adequate Fund of Knowledge: Poor Attention and Concentration: Other (Fair) Memory: Impaired Mood: Other (Calm) Affect: Blunt Thought Process & Associations: Circumstantial Thought Content: Appropriate Hallucination Type: None Delusion Type: None, Paranoid Suicidal Ideation: No Suicidal Plan: No Suicidal Intention: No Homicidal Ideation: No Homicidal Plan: No Homicidal Intention: No Insight: Fair Judgment: Poor Assessment and Plan - Assessment (1) Paranoid type schizophrenia, chronic state Code(s): F20.0 - Paranoid schizophrenia Status: Acute - Plan Plan: Patient remained psychotic and paranoid. Though is somewhat calmer today. Please see medication adjustments above Justification for Continued Inpatient Stay: At this time patient would decompensate a place to a lower level of care Discharge Planning: To be determined Request Healthcare Surrogate/Guardian Advocate?: Yes
[2018-08-25] MEDS: Acetaminophen 325 MG Tablet PO PRN (20:05)
[2018-08-25] MEDS: Divalproex 500 MG ER Tablet PO SCH (20:07)
[2018-08-26] MEDS: Senna/Docusate Sodium 8.6/50 MG Tablet PO SCH ×2 (08:37→21:18)
[2018-08-26] MEDS: Divalproex 500 MG ER Tablet PO SCH ×2 (08:38→21:19)
[2018-08-26] MEDS: Acetaminophen 325 MG Tablet PO PRN (08:38)
[2018-08-26] MEDS: Lisinopril 10 MG Tablet PO SCH (08:38)
--- NOTE | 2018-08-26 15:46 | P.PNPSY ---
Subjective Chief Complaint: Unspeficied Psychosis Remarks: Reviewed electronic medical records and discussed case with staff. Follow-up was conducted in the hallway with JOSÉ Carroll present. Patient continues at what I believe is his baseline confusion. His nurse reports he had no behaviors today. He states that he is eating and sleeping well. He reports that he feels "fine". He is appropriate and cooperative throughout the interview today. Mental Status Examination Appearance: Appropriate Consciousness: Alert Orientation: Person, Place (At least) Motor Activity: Other (No motor abnormalities noted) Speech: Unremarkable Language: Adequate Fund of Knowledge: Poor Attention and Concentration: Other (Fair) Memory: Impaired Mood: Other (Calm) Affect: Blunt Thought Process & Associations: Circumstantial Thought Content: Appropriate Hallucination Type: None Delusion Type: None, Paranoid Suicidal Ideation: No Suicidal Plan: No Suicidal Intention: No Homicidal Ideation: No Homicidal Plan: No Homicidal Intention: No Insight: Fair Judgment: Poor Assessment and Plan - Assessment (1) Unspecified psychosis Code(s): F29 - Unspecified psychosis not due to a substance or known physiological condition Status: Acute - Plan Plan: Patient will be reevaluated Tuesday by the attending psychiatrist. Continue with current treatment plan. Justification for Continued Inpatient Stay: Moving this patient to a less restrictive environment would likely result in decompensation. Request Healthcare Surrogate/Guardian Advocate?: Yes
[2018-08-27] MEDS: Lisinopril 10 MG Tablet PO SCH (08:34)
[2018-08-27] MEDS: Senna/Docusate Sodium 8.6/50 MG Tablet PO SCH ×2 (08:34→20:46)
[2018-08-27] MEDS: Divalproex 500 MG ER Tablet PO SCH ×2 (08:34→20:46)
[2018-08-27] MEDS: Acetaminophen 325 MG Tablet PO PRN (09:13)
--- NOTE | 2018-08-27 14:47 | P.PNPSY ---
Subjective Chief Complaint: Unspeficied Psychosis Remarks: Reviewed electronic medical records and discussed case with staff. Follow-up was conducted in the [facility] area with JOSÉ Mari present. Patient is sleeping in a chair in the dayroom. Nursing reports that he has been cooperative. Eating and sleeping well. Review of Systems All other systems reviewed negative except as stated in HPI Mental Status Examination Appearance: Appropriate Consciousness: Alert Orientation: Person, Place (At least) Motor Activity: Other (No motor abnormalities noted) Speech: Unremarkable Language: Adequate Fund of Knowledge: Poor Attention and Concentration: Other (Fair) Memory: Impaired Mood: Other (Calm) Affect: Blunt Thought Process & Associations: Circumstantial Thought Content: Appropriate Hallucination Type: None Delusion Type: None, Paranoid Suicidal Ideation: No Suicidal Plan: No Suicidal Intention: No Homicidal Ideation: No Homicidal Plan: No Homicidal Intention: No Insight: Fair Judgment: Poor Assessment and Plan - Assessment (1) Unspecified psychosis Code(s): F29 - Unspecified psychosis not due to a substance or known physiological condition Status: Acute - Plan Plan: Patient will be reevaluated Tuesday by the attending psychiatrist. Continue with current treatment plan. Justification for Continued Inpatient Stay: Moving patient to a less restrictive environment may result in his decompensation. Request Healthcare Surrogate/Guardian Advocate?: Yes
[2018-08-28] MEDS: Senna/Docusate Sodium 8.6/50 MG Tablet PO SCH ×2 (08:23→20:24)
[2018-08-28] MEDS: Lisinopril 10 MG Tablet PO SCH (08:23)
[2018-08-28] MEDS: Divalproex 500 MG ER Tablet PO SCH ×2 (08:24→20:24)
--- NOTE | 2018-08-28 08:50 | P.TTN ---
- Patient Problems Problems: 1. Discharge planning 2. Medication compliance 3. Knowledge deficit 4. Lack of coping skills - Progress Toward Goals Provider Present: Dr. Elsa Yadav (08/28/2018, patient remains psychotic, Dr. Yadav is titrating medications, patient remains for further stabilization.) Provider Input: 08/09 patient on medications now, still psychotic. 08/04Patient has been uncooperative, decreased energy and requires further stabilization. needs stabilization and placement as he was [facility] [place] [facility]- family is assisting with an [facility] and want referral faxed. 917 patient needs further stabilization, Dr. Yadav is titrating medications, patient attends select groups, mostly isolates to himself and is seclusive to his room. Psychiatric Counselors Present: Nita Armendariz LCSW (08/07 needs stabilization and placement as he was displaced from [place] and [facility]- family is assisting with an [facility] and want referral faxed. Will fax once finding another [facility] ), Toro Medel Jr., [facility] (08-14-2018 patient is displaced from [facility] and in need of placement. Patient new to 2700, disposal plan unclear at this time. 08/28/2018Toro is working with [facility] in the [place] area for placement. Toro left another message for Nicol in admissions at [phone], counselor was told last week that a bed may be available today August 28, 2018. Counselor will follow up.) Psychiatric Therapist Input: 08/09 needs [facility], was displaced and unable to be stable out in community by self, mother and brother have found an MCC , faxed referral, awaiting answer. Aurelia- Patient remins psychtic, delusional adn is uncooperative Group Spec/RT/OT/MEJIA Present: Keerthi Otero, DAYAN, ROBERTO Gillespie (08/28/2018 patient attends select groups and participates adequately.) Group Spec/RT/OT/MEJIA Input: 08/09 still no group attendance- yells often, upset and aggitated. Patient does not attend groups. 08-14-2018 patient attends select groups but is mostly seclusive to his room. - Documentation Teaching Recipient: Patient
--- NOTE | 2018-08-28 15:26 | P.PNPSY ---
Subjective Chief Complaint: Unspeficied Psychosis Remarks: Patient seen and unit with nurse Estela and medical student Nella, chart reviewed, patient compliant medication. Patient is sitting in the sandoval stating "I want to go home" referring to his NESS. We need to work with the NESS to verify placement there patient is somewhat calmer more focused today his paranoia and irritability are softer. For now continue treatment. We are awaiting Depakote blood level tomorrow Review of Systems All other systems reviewed negative except as stated in HPI Mental Status Examination Appearance: Appropriate Consciousness: Alert Orientation: Person, Place (At least) Motor Activity: Other (No motor abnormalities noted) Speech: Unremarkable Language: Adequate Fund of Knowledge: Poor Attention and Concentration: Other (Fair) Memory: Impaired Mood: Other (Calm) Affect: Blunt Thought Process & Associations: Circumstantial Thought Content: Appropriate Hallucination Type: None Delusion Type: None, Paranoid Suicidal Ideation: No Suicidal Plan: No Suicidal Intention: No Homicidal Ideation: No Homicidal Plan: No Homicidal Intention: No Insight: Fair Judgment: Poor Assessment and Plan - Assessment (1) Paranoid type schizophrenia, chronic state Code(s): F20.0 - Paranoid schizophrenia Status: Acute - Plan Plan: Patient continues psychotic paranoid though somewhat softer, compliant medication Justification for Continued Inpatient Stay: At this time patient would decompensate a place to the lower level of care Discharge Planning: To be determined placement remains somewhat problematic Request Healthcare Surrogate/Guardian Advocate?: Yes
[2018-08-28] MEDS: Acetaminophen 325 MG Tablet PO PRN (15:33)
[2018-08-29] MEDS: Lisinopril 10 MG Tablet PO SCH (08:15)
[2018-08-29] MEDS: Senna/Docusate Sodium 8.6/50 MG Tablet PO SCH (08:16)
[2018-08-29] MEDS: Acetaminophen 325 MG Tablet PO PRN ×2 (08:16→17:28)
[2018-08-29] MEDS: Divalproex 500 MG ER Tablet PO SCH (09:00)
--- NOTE | 2018-08-29 09:33 | P.PNPSY ---
Subjective Chief Complaint: Unspeficied Psychosis Remarks: Patient seen in his room with medical student Nella, chart reviewed, patient remains paranoid vigilant became angry at me because she felt that was not speaking with the various possible placements for him. He then he then call me Obama and went into his room. Depakote level drawn this morning was 70. I also reviewed patient's chemistries his AST was elevated we will recheck CMP tomorrow morning prior to for any further adjustment of medications Review of Systems All other systems reviewed negative except as stated in HPI Mental Status Examination Appearance: Appropriate Consciousness: Alert Orientation: Person, Place (At least) Motor Activity: Other (No motor abnormalities noted) Speech: Unremarkable Language: Adequate Fund of Knowledge: Poor Attention and Concentration: Other (Fair) Memory: Impaired Mood: Other (Calm) Affect: Blunt Thought Process & Associations: Circumstantial Thought Content: Appropriate Hallucination Type: None Delusion Type: None, Paranoid Suicidal Ideation: No Suicidal Plan: No Suicidal Intention: No Homicidal Ideation: No Homicidal Plan: No Homicidal Intention: No Insight: Fair Judgment: Poor Assessment and Plan - Assessment (1) Paranoid type schizophrenia, chronic state Code(s): F20.0 - Paranoid schizophrenia Status: Acute - Plan Plan: Patient remained psychotic paranoid vigilant and irritable. Depakote blood level this a.m. came back at 70. We will recheck CMP in a.m. prior to any medication adjustment Justification for Continued Inpatient Stay: At this time patient would decompensate a place to a lower level of care Discharge Planning: Placement remains quite problematic Request Healthcare Surrogate/Guardian Advocate?: Yes
[2018-08-30] MEDS: Divalproex 500 MG ER Tablet PO SCH ×2 (08:37→21:23)
[2018-08-30] MEDS: Senna/Docusate Sodium 8.6/50 MG Tablet PO SCH (08:38)
[2018-08-30] MEDS: Lisinopril 10 MG Tablet PO SCH (08:38)
--- NOTE | 2018-08-30 09:09 | P.TTN ---
- Patient Problems Problems: 1. Discharge planning 2. Medication compliance 3. Knowledge deficit 4. Lack of coping skills - Progress Toward Goals Provider Present: Dr. Elsa Yadav (08/28/2018, patient remains psychotic, Dr. Yadav is titrating medications, patient remains for further stabilization. August 30, 2018, patient remains labile, delusional, and in need of further stabilization. Patient may be approaching baseline, Dr. Yadav has advised that we continue seeking placement.) Provider Input: 08/09 patient on medications now, still psychotic. 08/04Patient has been uncooperative, decreased energy and requires further stabilization. needs stabilization and placement as he was displaced from [place] and ended [facility] in [facility]- family is assisting with an NESS and want referral faxed. 917 patient needs further stabilization, Dr. Yadav is titrating medications, patient attends select groups, mostly isolates to himself and is seclusive to his room. Psychiatric Counselors Present: Nita Armendariz LCSW (08/07 needs stabilization and placement as he was displaced from [place] and [facility]- family is assisting with an PRISON and want referral faxed. Will fax once finding another detention ), Toro Medel Jr., [facility] (08-14-2018 patient is displaced from [facility] and in need of placement. Patient new to 2700, disposal plan unclear at this time. 08/28/2018Toro is working with [facility] in the [place] area for placement. Toro left another message for Nicol in admissions at [phone], counselor was told last week that a bed may be available today August 28, 2018. Counselor will follow up. August 30, 2018 counselor was informed by [facility] that patient is on wait list at their assisted living facility however a bed may not be available for another 3- 4 weeks. Counselor will begin seeking other PRISON placement as soon as possible.) Psychiatric Therapist Input: 08/09 needs PRISON, was displaced and unable to be stable out in community by self, mother and brother have found an PRISON , faxed referral, awaiting answer. Aurelia- Patient remins psychtic, delusional adn is uncooperative Group Spec/RT/OT/MEJIA Present: Keerthi Otero, DAYAN (Patient attends select groups and participates appropriately.), ROBERTO Gillespie (08/28/2018patient attends select groups and participates adequately.) Group Spec/RT/OT/MEJIA Input: 08/09 still no group attendance- yells often, upset and aggitated. Patient does not attend groups. 08-14-2018 patient attends select groups but is mostly seclusive to his room. - Documentation Teaching Recipient: Patient
[2018-08-30 09:47] LABS: Albumin 3.4 g/dL (3.4-5.0); Anion Gap 8 meq/L (5-15); Aspartate Aminotransferase 24 U/L (15-37); Blood Urea Nitrogen 11 mg/dL (7-18); Calcium 8.9 mg/dL (8.5-10.1); Carbon Dioxide 29.9 meq/L (21.0-32.0); Chloride 94 meq/L (98-107); Glomerular Filtration Rate Greater Than 89 mL/min (>89); Glucose,Random 79 mg/dL (74-106); Potassium 4.2 meq/L (3.5-5.1); Sodium 132 meq/L (136-145)
[2018-08-30 09:50] LABS: Alanine Aminotransferase 32 U/L (12-78); Alkaline Phosphatase 68 U/L (45-117)
--- NOTE | 2018-08-30 09:51 | P.PNPSY ---
Subjective Chief Complaint: Unspeficied Psychosis Remarks: Patient seen and sandoval with floor staff, and Munira KUMAR, chart reviewed, patient compliant medication. Patient calmer more focused with me today is tolerating the delays and issues related to his placement. His paranoia has softened he is not as irritable or angry with me as yesterday. For now continue treatment Review of Systems All other systems reviewed negative except as stated in HPI Mental Status Examination Appearance: Appropriate Consciousness: Alert Orientation: Person, Place (At least) Motor Activity: Other (No motor abnormalities noted) Speech: Unremarkable Language: Adequate Fund of Knowledge: Poor Attention and Concentration: Other (Fair) Memory: Impaired Mood: Other (Calm) Affect: Blunt Thought Process & Associations: Circumstantial Thought Content: Appropriate Hallucination Type: None Delusion Type: None, Paranoid Suicidal Ideation: No Suicidal Plan: No Suicidal Intention: No Homicidal Ideation: No Homicidal Plan: No Homicidal Intention: No Insight: Fair Judgment: Poor Assessment and Plan - Assessment (1) Paranoid type schizophrenia, chronic state Code(s): F20.0 - Paranoid schizophrenia Status: Acute - Plan Plan: Patient continues psychotic delusional but softer today affect is more appropriate. Coping with placement issues Justification for Continued Inpatient Stay: At this time patient would decompensate a place to a lower level of care Discharge Planning: To be determined placement is becoming quite problematic Request Healthcare Surrogate/Guardian Advocate?: Yes
[2018-08-30] MEDS: Acetaminophen 325 MG Tablet PO PRN (18:26)
[2018-08-31] MEDS: Divalproex 500 MG ER Tablet PO SCH ×2 (09:20→21:18)
[2018-08-31] MEDS: Lisinopril 10 MG Tablet PO SCH (09:20)
[2018-08-31] MEDS: Senna/Docusate Sodium 8.6/50 MG Tablet PO SCH ×3 (09:22→22:32)
[2018-08-31] MEDS: Acetaminophen 325 MG Tablet PO PRN (12:03)
--- NOTE | 2018-08-31 16:06 | P.PNPSY ---
Subjective Chief Complaint: Unspeficied Psychosis Remarks: Patient seen in his room on 2600, with medical student Nella, chart reviewed, patient sitting quietly in his chair reading a book. He is somewhat irritable with me today not willing to discuss what he is reading or talk much with me. He is compliant with medication. Otherwise and no behavior problems. For now continue treatment no change Review of Systems All other systems reviewed negative except as stated in HPI Mental Status Examination Appearance: Appropriate Consciousness: Alert Orientation: Person, Place (At least) Motor Activity: Other (No motor abnormalities noted) Speech: Unremarkable Language: Adequate Fund of Knowledge: Poor Attention and Concentration: Other (Fair) Memory: Impaired Mood: Other (Calm) Affect: Blunt Thought Process & Associations: Circumstantial Thought Content: Appropriate Hallucination Type: None Delusion Type: None, Paranoid Suicidal Ideation: No Suicidal Plan: No Suicidal Intention: No Homicidal Ideation: No Homicidal Plan: No Homicidal Intention: No Insight: Fair Judgment: Poor Assessment and Plan - Assessment (1) Paranoid type schizophrenia, chronic state Code(s): F20.0 - Paranoid schizophrenia Status: Acute - Plan Plan: Patient remained psychotic and somewhat paranoid with no behavior problems at this time. He appears to be adjusting to 2600 unit without problem Justification for Continued Inpatient Stay: At this time patient would decompensate if not placed in an appropriate level of care Discharge Planning: To be determined Request Healthcare Surrogate/Guardian Advocate?: Yes
[2018-09-01] MEDS: Lisinopril 10 MG Tablet PO SCH (09:22)
[2018-09-01] MEDS: Divalproex 500 MG ER Tablet PO SCH ×3 (09:24→20:32)
[2018-09-01] MEDS: Senna/Docusate Sodium 8.6/50 MG Tablet PO SCH ×2 (09:25→20:29)
--- NOTE | 2018-09-01 10:28 | P.PNPSY ---
Subjective Chief Complaint: Unspeficied Psychosis Remarks: Patient seen in his room with medical student Nella, chart reviewed, patient compliant medications. Patient laying in bed with covers to his chin eyes closed patient did not respond to my greeting even though it was not a loud voice. Though his eyes were fluttering it appears he peaked out at me. Patient has shown episodes of significant paranoia and irritability with me. I feel that is what is happening at the present time. For now continue treatment placement remains problematic Review of Systems All other systems reviewed negative except as stated in HPI Mental Status Examination Appearance: Appropriate Consciousness: Alert Orientation: Person, Place (At least) Motor Activity: Other (No motor abnormalities noted) Speech: Unremarkable Language: Adequate Fund of Knowledge: Poor Attention and Concentration: Other (Fair) Memory: Impaired Mood: Other (Calm) Affect: Blunt Thought Process & Associations: Circumstantial Thought Content: Appropriate Hallucination Type: None Delusion Type: None, Paranoid Suicidal Ideation: No Suicidal Plan: No Suicidal Intention: No Homicidal Ideation: No Homicidal Plan: No Homicidal Intention: No Insight: Fair Judgment: Poor Assessment and Plan - Assessment (1) Paranoid type schizophrenia, chronic state Code(s): F20.0 - Paranoid schizophrenia Status: Acute - Plan Plan: Patient continues paranoid delusional and psychotic, compliant medication. Did ignore me this morning. Though later in the morning is noted Justification for Continued Inpatient Stay: At this time patient would decompensate a place to a lower level of care Discharge Planning: To be determined placement remains problematic Request Healthcare Surrogate/Guardian Advocate?: Yes
[2018-09-01] MEDS: Acetaminophen 325 MG Tablet PO PRN (14:10)
[2018-09-02] MEDS: Senna/Docusate Sodium 8.6/50 MG Tablet PO SCH ×2 (08:45→21:23)
[2018-09-02] MEDS: Lisinopril 10 MG Tablet PO SCH (08:46)
[2018-09-02] MEDS: Divalproex 500 MG ER Tablet PO SCH ×2 (08:50→21:23)
[2018-09-02] MEDS: Acetaminophen 325 MG Tablet PO PRN (11:31)
--- NOTE | 2018-09-02 19:15 | P.PNPSY ---
Subjective Chief Complaint: Unspeficied Psychosis Remarks: Reviewed electronic medical records and discussed case with staff. Follow-up was conducted in his room with nurse present. The nurse advises that he had a bad morning. He states "I am depressed and I need to pay my bills". He does admit that he sleeping well and his appetite's been. He was on reports that he does not like male doctors and states "men hate men, that is the known fact". He then starts asking this provider for placement information and when told that I could not provide that he states, "why do they think you are too down to do that?" He then drops his head and states "I do not want to talk to you anymore". Mental Status Examination Appearance: Appropriate Consciousness: Alert Orientation: Person, Place (At least) Motor Activity: Other (No motor abnormalities noted) Speech: Unremarkable Language: Adequate Fund of Knowledge: Poor Attention and Concentration: Other (Fair) Memory: Impaired Mood: Other (Calm) Affect: Blunt Thought Process & Associations: Circumstantial Thought Content: Appropriate Hallucination Type: None Delusion Type: None, Paranoid Suicidal Ideation: No Suicidal Plan: No Suicidal Intention: No Homicidal Ideation: No Homicidal Plan: No Homicidal Intention: No Insight: Fair Judgment: Poor Assessment and Plan - Assessment (1) Unspecified psychosis Code(s): F29 - Unspecified psychosis not due to a substance or known physiological condition Status: Acute - Plan Plan: Patient will be reevaluated Tuesday by the attending psychiatrist. Continue with current treatment plan. Justification for Continued Inpatient Stay: Moving this patient to a less restrictive environment would likely result in decompensation. Request Healthcare Surrogate/Guardian Advocate?: Yes
[2018-09-03] MEDS: Lisinopril 10 MG Tablet PO SCH (08:37)
[2018-09-03] MEDS: Senna/Docusate Sodium 8.6/50 MG Tablet PO SCH ×2 (08:38→21:30)
[2018-09-03] MEDS: Divalproex 500 MG ER Tablet PO SCH ×2 (08:38→21:29)
--- NOTE | 2018-09-03 14:26 | P.PNPSY ---
Subjective Chief Complaint: Unspeficied Psychosis Remarks: Reviewed electronic medical records and discussed case with staff. Follow-up was conducted consultation room with the nurse. Patient was seclusive, but is not participating in activities . He states , " I want to go home. " He states he lives in a house in [place] with several other people and that is where he is happy. He continues to be religiously preoccupied. He continues to be disorganized but follows directions with little encouragement. Review of Systems All other systems reviewed negative except as stated in HPI Mental Status Examination Appearance: Appropriate Consciousness: Alert Orientation: Person, Place (At least) Motor Activity: Other (No motor abnormalities noted) Speech: Unremarkable Language: Adequate Fund of Knowledge: Poor Attention and Concentration: Other (Fair) Memory: Impaired Mood: Other (Calm) Affect: Blunt Thought Process & Associations: Circumstantial Thought Content: Appropriate Hallucination Type: None Delusion Type: None, Paranoid Suicidal Ideation: No Suicidal Plan: No Suicidal Intention: No Homicidal Ideation: No Homicidal Plan: No Homicidal Intention: No Insight: Fair Judgment: Poor Assessment and Plan - Assessment (1) Unspecified psychosis Code(s): F29 - Unspecified psychosis not due to a substance or known physiological condition Status: Acute - Plan Plan: Patient will be reevaluated Tuesday by the attending psychiatrist. Continue with current treatment plan. Justification for Continued Inpatient Stay: Moving patient to a less restrictive environment may result in his decompensation. Request Healthcare Surrogate/Guardian Advocate?: Yes
[2018-09-03] MEDS: Acetaminophen 325 MG Tablet PO PRN ×2 (15:40→21:30)
[2018-09-04] MEDS: Lisinopril 10 MG Tablet PO SCH (08:18)
[2018-09-04] MEDS: Senna/Docusate Sodium 8.6/50 MG Tablet PO SCH ×2 (08:18→20:38)
[2018-09-04] MEDS: Divalproex 500 MG ER Tablet PO SCH ×2 (08:18→20:38)
[2018-09-04] MEDS: Acetaminophen 325 MG Tablet PO PRN ×2 (08:21→19:16)
--- NOTE | 2018-09-04 14:50 | P.PNPSY ---
Subjective Chief Complaint: Unspeficied Psychosis Remarks: Patient seen in his room with nurse Laura and medical student Nella, chart reviewed, patient compliant medications. Patient calmer pleasant a small smile on his face. With good eye contact. The anger and bitterness are not there today. He now states that he be willing to return to the custodial he was placed in after [facility] closed we need to investigate this. He has thus to check with his mother about that facility. We will have counselor Review of Systems All other systems reviewed negative except as stated in HPI Mental Status Examination Appearance: Appropriate Consciousness: Alert Orientation: Person, Place (At least) Motor Activity: Other (No motor abnormalities noted) Speech: Unremarkable Language: Adequate Fund of Knowledge: Poor Attention and Concentration: Other (Fair) Memory: Impaired Mood: Other (Euthymic to somewhat restricted) Affect: Other (Decreased range and intensity) Thought Process & Associations: Circumstantial (Improved) Thought Content: Appropriate Hallucination Type: None Delusion Type: None, Paranoid (Better) Suicidal Ideation: No Suicidal Plan: No Suicidal Intention: No Homicidal Ideation: No Homicidal Plan: No Homicidal Intention: No Insight: Fair Judgment: Poor Assessment and Plan - Assessment (1) Paranoid type schizophrenia, chronic state Code(s): F20.0 - Paranoid schizophrenia Status: Acute - Plan Plan: Patient's psychosis is softening he is calmer more appropriate and cooperative Justification for Continued Inpatient Stay: At this time patient would decompensate a place to a lower level of care Discharge Planning: To be determined perhaps returning to his prior placement Request Healthcare Surrogate/Guardian Advocate?: Yes
--- NOTE | 2018-09-04 15:27 | P.TTN ---
- Patient Problems Problems: 1. Discharge planning 2. Medication compliance 3. Knowledge deficit 4. Lack of coping skills - Progress Toward Goals Provider Present: Dr. Elsa Yadav (08/28/2018, patient remains psychotic, Dr. Yadav is titrating medications, patient remains for further stabilization. August 30, 2018, patient remains labile, delusional, and in need of further stabilization. Patient may be approaching baseline, Dr. Yadav has advised that we continue seeking placement. September 04, 2018, Dr. Yadav reports the patient is not stable and is considering placement at the [facility].) Provider Input: 08/09 patient on medications now, still psychotic. 08/04Patient has been uncooperative, decreased energy and requires further stabilization. needs stabilization and placement as he was displaced from [facility] and ended up in [facility]- family is assisting with an JAIL and want referral faxed. [phone] patient needs further stabilization, Dr. Yadav is titrating medications, patient attends select groups, mostly isolates to himself and is seclusive to his room. Psychiatric Counselors Present: Nita Armendariz LCSW (08/07 needs stabilization and placement as he was displaced from [facility] and ended up in [facility]- family is assisting with an NESS and want referral faxed. Will fax once finding another long term ), Toro Medel Jr., [facility] (08-14-2018 patient is displaced from [facility] and in need of placement. Patient new to 2700, disposal plan unclear at this time. 08/28/2018Toro is working with [facility] in the [place] area for placement. Toro left another message for Nicol in admissions at [phone], counselor was told last week that a bed may be available today August 28, 2018. Counselor will follow up. August 30, 2018 counselor was informed by [facility] that patient is on wait list at their assisted living facility however a bed may not be available for another 3- 4 weeks. Counselor will begin seeking other JAIL placement as soon as possible. Counselor continues to seek placement, patient denied at [facility], patient denied at [facility], patient denied at [facility] in [place], counselor will attempt to contact the patient's brother Jamie Estes to assist with discharge) Psychiatric Therapist Input: 08/09 needs NESS, was displaced and unable to be stable out in community by self, mother and brother have found an JAIL , faxed referral, awaiting answer. Aurelia- Patient remins psychtic, delusional adn is uncooperative Group Spec/RT/OT/MEJIA Present: Keerthi Otero, DAYAN (Patient attends select groups and participates appropriately.), ROBERTO Everett (Patient attends select groups), ROBERTO Gillespie (08/28/2018patient attends select groups and participates adequately.) Group Spec/RT/OT/MEJIA Input: 08/09 still no group attendance- yells often, upset and aggitated. Patient does not attend groups. 08-14-2018 patient attends select groups but is mostly seclusive to his room. - Documentation Teaching Recipient: Patient
[2018-09-05] MEDS: Lisinopril 10 MG Tablet PO SCH (09:46)
[2018-09-05] MEDS: Senna/Docusate Sodium 8.6/50 MG Tablet PO SCH ×2 (09:46→20:25)
[2018-09-05] MEDS: Divalproex 500 MG ER Tablet PO SCH ×2 (09:47→20:24)
[2018-09-05] MEDS: Acetaminophen 325 MG Tablet PO PRN ×2 (09:52→17:52)
--- NOTE | 2018-09-05 11:33 | P.PNPSY ---
<Nella Kirkpatrick - Last Filed: 09/05/18 11:28> Subjective Chief Complaint: Unspeficied Psychosis Remarks: I spoke with Juan's mother on the phone, Kathryn Mckay upon Juan's request to get information on the [place] location he stayed at before he was chan acted. Ms. Mckay told me that he is "not supposed to go there" and reluctantly gave me the phone number of the location. It is managed by a woman named Pretty Reilly and the phone numbers are [phone] as well as [phone]. Ms. Mckay states that he does not belong at that location because they are "not equipped to take care of mentally ill people". When his medications are "off", he can get scary and violent and Pretty Reilly was worried about her other clients who are mainly elderly people. His mother states that she is unable to take him into her home as she is too old and has heart problems related to stress involving her son. She is hoping to be updated in regards to his placement. Mary Carmen Kirkpatrick, medical student MS3 Mental Status Examination Appearance: Appropriate Consciousness: Alert Orientation: Person, Place (At least) Motor Activity: Other (No motor abnormalities noted) Speech: Unremarkable Language: Adequate Fund of Knowledge: Poor Attention and Concentration: Other (Fair) Memory: Impaired Mood: Other (Euthymic to somewhat restricted) Affect: Other (Decreased range and intensity) Thought Process & Associations: Circumstantial (Improved) Thought Content: Appropriate Hallucination Type: None Delusion Type: None, Paranoid (Better) Suicidal Ideation: No Suicidal Plan: No Suicidal Intention: No Homicidal Ideation: No Homicidal Plan: No Homicidal Intention: No Insight: Fair Judgment: Poor Assessment and Plan - Plan Request Healthcare Surrogate/Guardian Advocate?: Yes <Erik Yadav - Last Filed: 09/05/18 13:35> Subjective Remarks: I have reviewed above dictation and agree with it, I have also seen patient independently in the dictated progress note Assessment and Plan - Assessment (1) Paranoid type schizophrenia, chronic state Code(s): F20.0 - Paranoid schizophrenia Status: Acute - Plan Plan: Estimated LOS: [] days Patient remains vigilant suspicious paranoid Justification for Continued Inpatient Stay: At this time patient would decompensate a place to a lower level of care Discharge Planning: To be determined
--- NOTE | 2018-09-05 13:37 | P.PNPSY ---
Subjective Chief Complaint: Unspeficied Psychosis Remarks: Patient seen by me with floor staff, chart reviewed, patient compliant medications. Patient remains overall vigilant somewhat suspicious but continues calmer than a few days ago. It appears patient's desire to return to the senior living where he was transferred to from [facility] she is unrealistic and unobtainable. Need to work with placement of this gentleman. He is compliant medications. Vague about voices though denies suicidality Review of Systems All other systems reviewed negative except as stated in HPI Mental Status Examination Appearance: Appropriate Consciousness: Alert Orientation: Person, Place (At least) Motor Activity: Other (No motor abnormalities noted) Speech: Unremarkable Language: Adequate Fund of Knowledge: Poor Attention and Concentration: Other (Fair) Memory: Impaired Mood: Other (Euthymic to somewhat restricted) Affect: Other (Decreased range and intensity) Thought Process & Associations: Circumstantial (Improved) Thought Content: Appropriate Hallucination Type: None Delusion Type: None, Paranoid (Better) Suicidal Ideation: No Suicidal Plan: No Suicidal Intention: No Homicidal Ideation: No Homicidal Plan: No Homicidal Intention: No Insight: Fair Judgment: Poor Assessment and Plan - Assessment (1) Paranoid type schizophrenia, chronic state Code(s): F20.0 - Paranoid schizophrenia Status: Acute - Plan Plan: Patient remains somewhat psychotic paranoid and delusional though the affect is softer than a few days ago. For now continue treatment. Patient placement is becoming more of a problem Justification for Continued Inpatient Stay: At this time patient would decompensate a place to a lower level of care Discharge Planning: To be determined Request Healthcare Surrogate/Guardian Advocate?: Yes
[2018-09-06] MEDS: Lisinopril 10 MG Tablet PO SCH (08:50)
[2018-09-06] MEDS: Senna/Docusate Sodium 8.6/50 MG Tablet PO SCH ×2 (08:51→20:38)
[2018-09-06] MEDS: Divalproex 500 MG ER Tablet PO SCH ×2 (08:51→20:38)
[2018-09-06] MEDS: Acetaminophen 325 MG Tablet PO PRN (10:21)
--- NOTE | 2018-09-06 14:00 | P.PNPSY ---
Subjective Chief Complaint: Unspeficied Psychosis Remarks: Patient is seen in day room with nurse Ofelia and nurse Shaunna, chart reviewed, patient compliant medication. Patient today again asked if he would be discharged today. I did explain to him his prior placement for refusal for him to return there. That we are working diligently to find him a new placement. He seemed to process that with little irritation. For now continue treatment Review of Systems All other systems reviewed negative except as stated in HPI Mental Status Examination Appearance: Appropriate Consciousness: Alert Orientation: Person, Place (At least) Motor Activity: Other (No motor abnormalities noted) Speech: Unremarkable Language: Adequate Fund of Knowledge: Poor Attention and Concentration: Other (Fair) Memory: Impaired Mood: Other (Euthymic to somewhat restricted) Affect: Other (Decreased range and intensity) Thought Process & Associations: Circumstantial (Improved) Thought Content: Appropriate Hallucination Type: None Delusion Type: None, Paranoid (Better) Suicidal Ideation: No Suicidal Plan: No Suicidal Intention: No Homicidal Ideation: No Homicidal Plan: No Homicidal Intention: No Insight: Fair Judgment: Poor Assessment and Plan - Assessment (1) Paranoid type schizophrenia, chronic state Code(s): F20.0 - Paranoid schizophrenia Status: Acute - Plan Plan: Patient remains somewhat vigilant and psychotic though affect is calmer with less irritability or anger Justification for Continued Inpatient Stay: At this time patient would decompensate a place to a lower level of care Discharge Planning: To be determined Request Healthcare Surrogate/Guardian Advocate?: Yes
[2018-09-07] MEDS: Lisinopril 10 MG Tablet PO SCH (08:33)
[2018-09-07] MEDS: Divalproex 500 MG ER Tablet PO SCH ×2 (08:34→20:46)
[2018-09-07] MEDS: Senna/Docusate Sodium 8.6/50 MG Tablet PO SCH ×2 (08:34→20:49)
[2018-09-07] MEDS: Acetaminophen 325 MG Tablet PO PRN ×2 (08:39→15:10)
--- NOTE | 2018-09-07 13:29 | P.PNPSY ---
Subjective Chief Complaint: Unspeficied Psychosis Remarks: Patient seen today in day room with medical student Everette and RN. Chart reviewed. Patient compliant medication. Patient continues calm with me though at times appears little distracted at times a little vigilant and suspicious. For now continue treatment. Continue to await word from [facility] Review of Systems All other systems reviewed negative except as stated in HPI Mental Status Examination Appearance: Appropriate Consciousness: Alert Orientation: Person, Place (At least) Motor Activity: Other (No motor abnormalities noted) Speech: Unremarkable Language: Adequate Fund of Knowledge: Poor Attention and Concentration: Other (Fair) Memory: Impaired Mood: Other (Euthymic to somewhat restricted) Affect: Other (Decreased range and intensity) Thought Process & Associations: Circumstantial (Improved) Thought Content: Appropriate Hallucination Type: None Delusion Type: None, Paranoid (Better) Suicidal Ideation: No Suicidal Plan: No Suicidal Intention: No Homicidal Ideation: No Homicidal Plan: No Homicidal Intention: No Insight: Fair Judgment: Poor Assessment and Plan - Assessment (1) Paranoid type schizophrenia, chronic state Code(s): F20.0 - Paranoid schizophrenia Status: Acute - Plan Plan: Patient no behavior problems stays compliant medication, but still remains vigilant and paranoid Justification for Continued Inpatient Stay: At this time patient would decompensate a place to a lower level of care Discharge Planning: To be determined Request Healthcare Surrogate/Guardian Advocate?: Yes
[2018-09-08] MEDS: Senna/Docusate Sodium 8.6/50 MG Tablet PO SCH ×2 (09:28→21:03)
[2018-09-08] MEDS: Lisinopril 10 MG Tablet PO SCH (09:29)
[2018-09-08] MEDS: Divalproex 500 MG ER Tablet PO SCH ×2 (09:29→21:08)
--- NOTE | 2018-09-08 10:06 | P.PNPSY ---
Subjective Chief Complaint: Unspeficied Psychosis Remarks: Patient seen and sandoval with floor staff, patient calm cooperative me continues to ask when he is to be discharged. Chart reviewed. Patient compliant medication. It appears patient was interviewed by [facility] yesterday and they appear to be interested. We will await word from them about the possibility of transfer to that facility Review of Systems All other systems reviewed negative except as stated in HPI Mental Status Examination Appearance: Appropriate Consciousness: Alert Orientation: Person, Place (At least) Motor Activity: Other (No motor abnormalities noted) Speech: Unremarkable Language: Adequate Fund of Knowledge: Poor Attention and Concentration: Other (Fair) Memory: Impaired Mood: Other (Euthymic to somewhat restricted) Affect: Other (Decreased range and intensity) Thought Process & Associations: Circumstantial (Improved) Thought Content: Appropriate Hallucination Type: None Delusion Type: None, Paranoid (Better) Suicidal Ideation: No Suicidal Plan: No Suicidal Intention: No Homicidal Ideation: No Homicidal Plan: No Homicidal Intention: No Insight: Fair Judgment: Poor Assessment and Plan - Assessment (1) Paranoid type schizophrenia, chronic state Code(s): F20.0 - Paranoid schizophrenia Status: Acute - Plan Plan: Patient's psychosis delusions irritability as softened today he is showing some insight and processing of the procedures to find appropriate placement for now continue treatment Justification for Continued Inpatient Stay: At this time patient would decompensate a place to a lower level of care Discharge Planning: To be determined Request Healthcare Surrogate/Guardian Advocate?: Yes
[2018-09-08] MEDS: Acetaminophen 325 MG Tablet PO PRN (13:03)
[2018-09-09] MEDS: Lisinopril 10 MG Tablet PO SCH (08:47)
[2018-09-09] MEDS: Senna/Docusate Sodium 8.6/50 MG Tablet PO SCH ×2 (08:47→22:23)
[2018-09-09] MEDS: Divalproex 500 MG ER Tablet PO SCH ×2 (08:48→22:24)
[2018-09-09] MEDS: Acetaminophen 325 MG Tablet PO PRN (09:29)
--- NOTE | 2018-09-09 14:47 | P.PNPSY ---
Subjective Chief Complaint: Unspeficied Psychosis Remarks: Reviewed electronic medical records and discussed case with staff. Follow-up was conducted in the hallway with JOSÉ Flores present. She reports she has been compliant with his medications and had no behavioral issues. He did report that he had "pain in the brain" earlier today which Tylenol seems to have resolved. Patient states he sleeping well his appetite has been good. He reports that his mood is good. He denies any side effects from his medications. His affect is brightened and he is observed walking the halls being somewhat sociable. Mental Status Examination Appearance: Appropriate Consciousness: Alert Orientation: Person, Place (At least) Motor Activity: Other (No motor abnormalities noted) Speech: Unremarkable Language: Adequate Fund of Knowledge: Poor Attention and Concentration: Other (Fair) Memory: Impaired Mood: Other (Euthymic to somewhat restricted) Affect: Other (Decreased range and intensity) Thought Process & Associations: Circumstantial (Improved) Thought Content: Appropriate Hallucination Type: None Delusion Type: None, Paranoid (Better) Suicidal Ideation: No Suicidal Plan: No Suicidal Intention: No Homicidal Ideation: No Homicidal Plan: No Homicidal Intention: No Insight: Fair Judgment: Poor Assessment and Plan - Assessment (1) Unspecified psychosis Code(s): F29 - Unspecified psychosis not due to a substance or known physiological condition Status: Acute - Plan Plan: Patient will be reevaluated Tuesday by the attending psychiatrist. Continue with current treatment plan. Justification for Continued Inpatient Stay: Moving this patient to a less restrictive environment would likely result in decompensation. Request Healthcare Surrogate/Guardian Advocate?: Yes
[2018-09-10] MEDS: Senna/Docusate Sodium 8.6/50 MG Tablet PO SCH ×2 (09:04→20:34)
[2018-09-10] MEDS: Divalproex 500 MG ER Tablet PO SCH ×2 (09:04→20:34)
[2018-09-10] MEDS: Lisinopril 10 MG Tablet PO SCH (09:04)
--- NOTE | 2018-09-10 12:54 | P.PNPSY ---
Subjective Chief Complaint: Unspeficied Psychosis Remarks: Reviewed electronic medical records and discussed case with staff. Follow-up was conducted in the patient's room. Patient lying in his bed reading a book. Patient shares that on Tuesday he met with [facility] and it is his understanding that he is going to move there. This is the first time I have witness Juan show any emotion. He expressed happiness and a feeling that he is getting better. Review of Systems All other systems reviewed negative except as stated in HPI Mental Status Examination Appearance: Appropriate Consciousness: Alert Orientation: Person, Place (At least) Motor Activity: Other (No motor abnormalities noted) Speech: Unremarkable Language: Adequate Fund of Knowledge: Inadequate Attention and Concentration: Easily distracted Memory: Impaired Mood: Other (Euthymic to somewhat restricted) Affect: Other (Decreased range and intensity) Thought Process & Associations: Circumstantial (Improved) Thought Content: Appropriate Hallucination Type: None Delusion Type: None, Paranoid (Better) Suicidal Ideation: No Suicidal Plan: No Suicidal Intention: No Homicidal Ideation: No Homicidal Plan: No Homicidal Intention: No Insight: Fair Judgment: Poor Assessment and Plan - Assessment (1) Unspecified psychosis Code(s): F29 - Unspecified psychosis not due to a substance or known physiological condition Status: Acute - Plan Plan: Patient will be reevaluated Tuesday by the attending psychiatrist. Continue with current treatment plan. Justification for Continued Inpatient Stay: Moving patient to a less restrictive environment may result in his decompensation. Request Healthcare Surrogate/Guardian Advocate?: Yes
[2018-09-10] MEDS: Acetaminophen 325 MG Tablet PO PRN (17:14)
[2018-09-11] MEDS: Senna/Docusate Sodium 8.6/50 MG Tablet PO SCH ×2 (09:01→21:07)
[2018-09-11] MEDS: Divalproex 500 MG ER Tablet PO SCH ×2 (09:02→21:07)
[2018-09-11] MEDS: Lisinopril 10 MG Tablet PO SCH (09:03)
[2018-09-11] MEDS: Acetaminophen 325 MG Tablet PO PRN (09:22)
--- NOTE | 2018-09-11 11:52 | P.PNPSY ---
Subjective Chief Complaint: Unspeficied Psychosis Remarks: Patient is seen in day room with nurse Chance, chart reviewed, patient compliant medication. Patient continues to focus on discharge "when am I going home". I explained again the need to find an appropriate placement since [facility] has been closed. Patient process this fairly well showing no real anger or irritability with. For now continue treatment no change Review of Systems All other systems reviewed negative except as stated in HPI Mental Status Examination Appearance: Appropriate Consciousness: Alert Orientation: Person, Place (At least) Motor Activity: Other (No motor abnormalities noted) Speech: Unremarkable Language: Adequate Fund of Knowledge: Inadequate Attention and Concentration: Easily distracted Memory: Impaired Mood: Other (Euthymic to somewhat restricted) Affect: Other (Decreased range and intensity) Thought Process & Associations: Circumstantial (Improved) Thought Content: Appropriate Hallucination Type: None Delusion Type: None, Paranoid (Better) Suicidal Ideation: No Suicidal Plan: No Suicidal Intention: No Homicidal Ideation: No Homicidal Plan: No Homicidal Intention: No Insight: Fair Judgment: Poor Assessment and Plan - Assessment (1) Paranoid type schizophrenia, chronic state Code(s): F20.0 - Paranoid schizophrenia Status: Acute - Plan Plan: Patient remained somewhat psychotic and paranoid though his affect is calmer he is compliant with medications and is coping with delays and placement Justification for Continued Inpatient Stay: At this time patient would decompensate a place to a lower level of care Discharge Planning: To be determined placement remains somewhat problematic continued to consider possible state placement Request Healthcare Surrogate/Guardian Advocate?: Yes
--- NOTE | 2018-09-11 13:37 | P.TTN ---
- Patient Problems Problems: 1. Discharge planning 2. Medication compliance 3. Knowledge deficit 4. Lack of coping skills - Progress Toward Goals Provider Present: Dr. Elsa Yadav (08/28/2018, patient remains psychotic, Dr. Yadav is titrating medications, patient remains for further stabilization. August 30, 2018, patient remains labile, delusional, and in need of further stabilization. Patient may be approaching baseline, Dr. Yadav has advised that we continue seeking placement. September 04, 2018, Dr. Yadav reports the patient is not stable and [facility] Dr. Chi Barney Provider Input: 09/11/18: Still Meets Criteria. Eleanor from [facility] will meet with Patient to discuss possible placement. 08/09 patient on medications now, still psychotic. 08/04Patient has been uncooperative, decreased energy and requires further stabilization. 08/07 needs stabilization and placement as he was displaced from [place] and [facility]- family is assisting with an NESS and want referral faxed. 917 patient needs further stabilization, Dr. Yadav is titrating medications, patient attends select groups, mostly isolates to himself and is seclusive to his room. Nurse(s) Present: Chance KUMARmechanical field engineer Counselors Present: Toro Medel Jr., [facility] (08-14-2018 patient is displaced from [facility] and in need of placement. Patient new to 2700, disposal plan unclear at this time. 08/28/2018Lansw[place]nil is working with [facility] in the [place] area for placement. Toro left another message for Nicol in admissions at [phone], counselor was told last week that a bed may be available today August 28, 2018. Counselor will follow up. August 30, 2018 counselor was informed by [facility] that patient is on wait list at their assisted living facility however a bed may not be available for another 3-4 weeks. Counselor will begin seeking other NESS placement as soon as possible. Counselor continues to seek placement, patient denied at [facility], patient denied at [facility], patient denied at [facility] in [place] , counselor will attempt to contact the patient's brother Jamie Estes to assist with discharge), Vika Bills [facility] Psychiatric Therapist Input: 09/11/18: Manic/psychotic, internally stimulated, needs more time, needs placement. 08/09 needs SNF, was displaced and unable to be stable out in community by self, mother and brother have found an SNF , faxed referral, awaiting answer. Aurelia- Patient remins psychtic, delusional adn is uncooperative Group Spec/RT/OT/MEJIA Present: Keerthi Otero, [employer] (Patient attends select groups and participates appropriately.) Group Spec/RT/OT/MEJIA Input: : Pt has been attending select group activities lately. Isolates to self. easily overwhelmed. 08/09 still no group attendance- yells often, upset and aggitated. Patient does not attend groups. 08-14-2018 patient attends select groups but is mostly seclusive to his room. - Discharge Plan Needs to find placement - Documentation Scribe: Keerthi Otero Teaching Recipient: Patient
[2018-09-12] MEDS: Senna/Docusate Sodium 8.6/50 MG Tablet PO SCH ×2 (08:28→20:45)
[2018-09-12] MEDS: Lisinopril 10 MG Tablet PO SCH (08:29)
[2018-09-12] MEDS: Divalproex 500 MG ER Tablet PO SCH ×2 (08:29→20:45)
[2018-09-12] MEDS: Acetaminophen 325 MG Tablet PO PRN ×2 (08:57→21:32)
--- NOTE | 2018-09-12 12:52 | P.PNPSY ---
Subjective Chief Complaint: Unspeficied Psychosis Remarks: Patient seen in the [place] with floor staff, chart reviewed, patient compliant medication. Patient continues to cope with delays and placement though is getting somewhat more frustrated at times irritable and a little bit paranoid. However he is redirectable at this time. For now continue treatment continue work on placement issues Review of Systems All other systems reviewed negative except as stated in HPI Mental Status Examination Appearance: Appropriate Consciousness: Alert Orientation: Person, Place (At least) Motor Activity: Other (No motor abnormalities noted) Speech: Unremarkable Language: Adequate Fund of Knowledge: Inadequate Attention and Concentration: Easily distracted Memory: Impaired Mood: Other (Euthymic to somewhat restricted) Affect: Other (Decreased range and intensity) Thought Process & Associations: Circumstantial (Improved) Thought Content: Appropriate Hallucination Type: None Delusion Type: None, Paranoid (Better) Suicidal Ideation: No Suicidal Plan: No Suicidal Intention: No Homicidal Ideation: No Homicidal Plan: No Homicidal Intention: No Insight: Fair Judgment: Poor Assessment and Plan - Assessment (1) Paranoid type schizophrenia, chronic state Code(s): F20.0 - Paranoid schizophrenia Status: Acute - Plan Plan: Patient remained somewhat vigilant and paranoid though redirectable and compliant medication. Placement remains problematic Justification for Continued Inpatient Stay: At this time patient would decompensate if placed in a lower level of care Discharge Planning: To be determined Request Healthcare Surrogate/Guardian Advocate?: Yes
[2018-09-13] MEDS: Acetaminophen 325 MG Tablet PO PRN ×2 (08:26→18:47)
[2018-09-13] MEDS: Senna/Docusate Sodium 8.6/50 MG Tablet PO SCH ×2 (08:28→21:13)
[2018-09-13] MEDS: Lisinopril 10 MG Tablet PO SCH (08:28)
[2018-09-13] MEDS: Divalproex 500 MG ER Tablet PO SCH ×2 (08:28→21:14)
--- NOTE | 2018-09-13 13:58 | P.PNPSY ---
Subjective Chief Complaint: Unspeficied Psychosis Remarks: Patient is seen in his room with floor staff, chart reviewed, patient compliant medication. Patient continues somewhat vigilant and isolative though overall calm cooperative no behavioral problem. Continues to cope with delays and placement. We will also continue to await word from [facility] referral Review of Systems All other systems reviewed negative except as stated in HPI Mental Status Examination Appearance: Appropriate Consciousness: Alert Orientation: Person, Place (At least) Motor Activity: Other (No motor abnormalities noted) Speech: Unremarkable Language: Adequate Fund of Knowledge: Inadequate Attention and Concentration: Easily distracted Memory: Impaired Mood: Other (Euthymic to somewhat restricted) Affect: Other (Decreased range and intensity) Thought Process & Associations: Circumstantial (Improved) Thought Content: Appropriate Hallucination Type: None Delusion Type: None, Paranoid (Better) Suicidal Ideation: No Suicidal Plan: No Suicidal Intention: No Homicidal Ideation: No Homicidal Plan: No Homicidal Intention: No Insight: Fair Judgment: Poor Assessment and Plan - Assessment (1) Paranoid type schizophrenia, chronic state Code(s): F20.0 - Paranoid schizophrenia Status: Acute - Plan Plan: Patient continues vigilant mildly paranoid but overall cooperative with no significant behavioral problems Justification for Continued Inpatient Stay: At this time patient would decompensate a place to a lower level of care Discharge Planning: To be determined continue to await word from [facility] Request Healthcare Surrogate/Guardian Advocate?: Yes
[2018-09-14] MEDS: Lisinopril 10 MG Tablet PO SCH (08:15)
[2018-09-14] MEDS: Senna/Docusate Sodium 8.6/50 MG Tablet PO SCH ×2 (08:15→22:02)
[2018-09-14] MEDS: Divalproex 500 MG ER Tablet PO SCH ×2 (08:15→22:02)
--- NOTE | 2018-09-14 08:16 | P.TTN ---
- Patient Problems Problems: 1. Discharge planning 2. Medication compliance 3. Knowledge deficit 4. Lack of coping skills - Progress Toward Goals Provider Present: Dr. Elsa Yadav (08/28/2018, patient remains psychotic, Dr. Yadav is titrating medications, patient remains for further stabilization. August 30, 2018, patient remains labile, delusional, and in need of further stabilization. Patient may be approaching baseline, Dr. Yadav has advised that we continue seeking placement. September 04, 2018, Dr. Yadav reports the patient is not stable and is considering placement at the [facility].), Dr. Chi Barney Provider Input: 09/13: Pt is pending DC to [facility], no behavioral problems, coping with delays. 09/11/18: Still Meets Criteria. Eleanor from [facility] will meet with Patient to discuss possible placement. 08/09 patient on medications now, still psychotic. 08/04Patient has been uncooperative , decreased energy and requires further stabilization. 08/07 needs stabilization and placement as he was displaced from [place] and ended up in [facility]- family is assisting with an NESS and want referral faxed. 917 patient needs further stabilization, Dr. Yadav is titrating medications, patient attends select groups, mostly isolates to himself and is seclusive to his room. Nurse(s) Present: Chance KUMARcorporate staff accountant Counselors Present: Toro Medel Jr., [facility] (08-14-2018 patient is displaced from [facility] and in need of placement. Patient new to 2700, disposal plan unclear at this time. 08/28/2018Toro is working with [facility] in the [place] area for placement. Toro left another message for Nicol in admissions at [phone], counselor was told last week that a bed may be available today August 28, 2018. Counselor will follow up. August 30, 2018 counselor was informed by [facility] that patient is on wait list at their assisted living facility however a bed may not be available for another 3-4 weeks. Counselor will begin seeking other LONG TERM placement as soon as possible. Counselor continues to seek placement, patient denied at [facility], patient denied at [facility], patient denied at [facility] in [place] , counselor will attempt to contact the patient's brother Jamie Estes to assist with discharge), Vika Bills [facility] Psychiatric Therapist Input: 09/13: Pending placement or [facility] hospital. : Manic/psychotic, internally stimulated, needs more time, needs placement. needs LONG TERM, was displaced and unable to be stable out in community by self, mother and brother have found an LONG TERM , faxed referral, awaiting answer. Aurelia - Patient remins psychtic, delusional adn is uncooperative Group Spec/RT/OT/MEJIA Present: ROBERTO Everett Group Spec/RT/OT/MEJIA Input: 09/13: Pt attends select groups appropriately, he remains seclusive to self, progress in participation noted. ?: Pt has been attending select group activities lately. Isolates to self. easily overwhelmed. 08/09 still no group attendance- yells often, upset and aggitated. Patient does not attend groups. 08-14-2018 patient attends select groups but is mostly seclusive to his room. Clinical Coordinator: Cary Hamilton [facility] - Discharge Plan Other Pending placement or state hospital - Documentation Scribe: Paradise MEJIA/Shannan Teaching Recipient: Patient
[2018-09-14] MEDS: Acetaminophen 325 MG Tablet PO PRN ×2 (13:01→22:19)
--- NOTE | 2018-09-14 15:15 | P.PNPSY ---
Subjective Chief Complaint: Unspeficied Psychosis Remarks: Patient is seen in day room with medical student Everette and nurse Mark, chart reviewed, patient compliant medication. Patient remains calm coping with delays and placement. He continues to ask about when he is leaving showing some frustration with the length of stay. For now continue treatment no change Review of Systems All other systems reviewed negative except as stated in HPI Mental Status Examination Appearance: Appropriate Consciousness: Alert Orientation: Person, Place (At least) Motor Activity: Other (No motor abnormalities noted) Speech: Unremarkable Language: Adequate Fund of Knowledge: Inadequate Attention and Concentration: Easily distracted Memory: Impaired Mood: Other (Euthymic to somewhat restricted) Affect: Other (Decreased range and intensity) Thought Process & Associations: Circumstantial (Improved) Thought Content: Appropriate Hallucination Type: None Delusion Type: None, Paranoid (Better) Suicidal Ideation: No Suicidal Plan: No Suicidal Intention: No Homicidal Ideation: No Homicidal Plan: No Homicidal Intention: No Insight: Fair Judgment: Poor Assessment and Plan - Assessment (1) Paranoid type schizophrenia, chronic state Code(s): F20.0 - Paranoid schizophrenia Status: Acute - Plan Plan: Patient remains somewhat vigilant and paranoid but coping, also coping with delays and placement. Justification for Continued Inpatient Stay: At this time patient would decompensate if not placed in an appropriate level of care Discharge Planning: Continue to work with placement patient also awaiting word from [facility] referral Request Healthcare Surrogate/Guardian Advocate?: Yes
[2018-09-15] MEDS: Lisinopril 10 MG Tablet PO SCH (10:02)
[2018-09-15] MEDS: Divalproex 500 MG ER Tablet PO SCH ×2 (10:02→21:14)
[2018-09-15] MEDS: Senna/Docusate Sodium 8.6/50 MG Tablet PO SCH ×2 (10:05→21:15)
--- NOTE | 2018-09-15 10:48 | P.PNPSY ---
Subjective Chief Complaint: Unspeficied Psychosis Remarks: Patient seen in his room with medical student Everette. Chart reviewed. Patient compliant medication. Patient somewhat more irritable paranoid today with a degree of hopelessness continues to focus on his length of stay and placement issues. This is been discussed with the treatment team we continue to look at alternative placements to the [facility] referral. For now continue treatment. Review of Systems All other systems reviewed negative except as stated in HPI Mental Status Examination Appearance: Appropriate Consciousness: Alert Orientation: Person, Place (At least) Motor Activity: Other (No motor abnormalities noted) Speech: Unremarkable Language: Adequate Fund of Knowledge: Inadequate Attention and Concentration: Easily distracted Memory: Impaired Mood: Other (Euthymic to somewhat restricted) Affect: Other (Decreased range and intensity) Thought Process & Associations: Circumstantial (Improved) Thought Content: Appropriate Hallucination Type: None Delusion Type: None, Paranoid (Better) Suicidal Ideation: No Suicidal Plan: No Suicidal Intention: No Homicidal Ideation: No Homicidal Plan: No Homicidal Intention: No Insight: Fair Judgment: Poor Assessment and Plan - Assessment (1) Paranoid type schizophrenia, chronic state Code(s): F20.0 - Paranoid schizophrenia Status: Acute - Plan Plan: Patient continues psychotic paranoid irritable and somewhat more angry today. Though no significant behavioral problem Justification for Continued Inpatient Stay: At this time patient would decompensate a place to a lower level of care Discharge Planning: To be determined Request Healthcare Surrogate/Guardian Advocate?: Yes
[2018-09-15] MEDS: Acetaminophen 325 MG Tablet PO PRN (13:36)
[2018-09-16] MEDS: Lisinopril 10 MG Tablet PO SCH (08:39)
[2018-09-16] MEDS: Divalproex 500 MG ER Tablet PO SCH ×2 (08:44→20:30)
[2018-09-16] MEDS: Senna/Docusate Sodium 8.6/50 MG Tablet PO SCH ×2 (08:45→20:30)
--- NOTE | 2018-09-16 13:15 | P.PNPSY ---
Subjective Chief Complaint: Unspeficied Psychosis Remarks: Pt seen and discussed with staff. Chart reviewed. Pt remains psychotic and delusional. No agitation or aggression. He is cooperative with medications and care. No SI/HI. Mental Status Examination Appearance: Appropriate Consciousness: Alert Orientation: Person, Place (At least) Motor Activity: Other (No motor abnormalities noted) Speech: Unremarkable Language: Adequate Fund of Knowledge: Inadequate Attention and Concentration: Easily distracted Memory: Impaired Mood: Other (Euthymic to somewhat restricted) Affect: Other (Decreased range and intensity) Thought Process & Associations: Circumstantial (Improved) Thought Content: Appropriate Hallucination Type: None Delusion Type: None, Paranoid (Better) Suicidal Ideation: No Suicidal Plan: No Suicidal Intention: No Homicidal Ideation: No Homicidal Plan: No Homicidal Intention: No Insight: Fair Judgment: Poor Assessment and Plan - Assessment (1) Paranoid type schizophrenia, chronic state Code(s): F20.0 - Paranoid schizophrenia Status: Acute - Plan Plan: Continue current tx plan Justification for Continued Inpatient Stay: impairments in reality testing Request Healthcare Surrogate/Guardian Advocate?: Yes
[2018-09-16] MEDS: Acetaminophen 325 MG Tablet PO PRN (14:05)
[2018-09-17] MEDS: Divalproex 500 MG ER Tablet PO SCH ×2 (09:47→21:16)
[2018-09-17] MEDS: Lisinopril 10 MG Tablet PO SCH (09:47)
[2018-09-17] MEDS: Senna/Docusate Sodium 8.6/50 MG Tablet PO SCH ×2 (09:48→21:16)
[2018-09-17] MEDS: Acetaminophen 325 MG Tablet PO PRN (09:51)
--- NOTE | 2018-09-17 13:41 | P.PNPSY ---
Subjective Chief Complaint: Unspeficied Psychosis Remarks: Chart reviewed and discussed with nursing staff. Patient is in his room lying in his bed awake. He appears sad and when questioned he shared that he thought he was going to be discharge to an assisted living and he thought they did not want him. I shared with him that it takes time to secure a place for people to go and that the staff will continue to work with him. He is eating and sleeping. No behavioral concerns. Quiet, cooperative and medication compliant. Review of Systems All other systems reviewed negative except as stated in HPI Mental Status Examination Appearance: Appropriate Consciousness: Alert Orientation: Person, Place (At least) Motor Activity: Other (No motor abnormalities noted) Speech: Unremarkable Language: Adequate Fund of Knowledge: Inadequate Attention and Concentration: Easily distracted Memory: Impaired Mood: Other (Euthymic to somewhat restricted) Affect: Sad, Other (Decreased range and intensity) Thought Process & Associations: Circumstantial (Improved) Thought Content: Appropriate Hallucination Type: None Delusion Type: None, Paranoid (Better) Suicidal Ideation: No Suicidal Plan: No Suicidal Intention: No Homicidal Ideation: No Homicidal Plan: No Homicidal Intention: No Insight: Fair Judgment: Poor Assessment and Plan - Assessment (1) Unspecified psychosis Code(s): F29 - Unspecified psychosis not due to a substance or known physiological condition Status: Acute - Plan Plan: Continue current tx plan Justification for Continued Inpatient Stay: Moving patient to a less restrictive environment may result in his decompensation. Request Healthcare Surrogate/Guardian Advocate?: Yes
--- NOTE | 2018-09-17 15:45 | P.CONIM ---
History of Present Illness Requesting Physician: Domitila Spear Reason for Consult: Left ear pain Primary Care Provider: No Primary Care Physician History of Present Illness: This is a 52-year-old male patient with a past medical history which includes schizophrenia and hypertension who is currently in inpatient psychiatric center we have been consulted for assistance with left ear pain. Patient denies ear pain. Patient reports his left ear feels as though it is clogged up. Patient reports sensation started yesterday some time and has never happened before. There is no specific exacerbating or relieving factors that patient is aware of. Patient denies drainage or discharge from urine. Patient does feel as though his hearing is somewhat muffled. Patient offers no other medical complaints at this time. Patient denies chest pain shortness of breath nausea vomiting fever chills cough congestion or diarrhea. Patient does endorse mild constipation last bowel movement yesterday. Past medical history: Hypertension, schizophrenia Past surgical history: Right inguinal hernia, repair of laceration left third finger and thumb Social history: patient reports he smokes 1 pack a day since age 15 Rare EtOH use Rare THC use Family medical history: Patient reports alcoholism runs in his family unaware of other medical conditions that run in his family. Review of Systems All other systems reviewed negative except as stated in HPI PMFSH - History History Provided By: Patient, Medical Record - Medical History Medical History: Medical History (Last Reviewed 08/08/18 @ 18:11 by RICHARDSON Mota) Hypertension Schizophrenia - Tobacco History Second Hand Smoke Exposure: No Tobacco Use In Past 30 Days: Yes Smoking Status: Current every day smoker Tobacco Type: Cigarettes - Alcohol History How Often Do You Have a Drink Containing Alcohol: Never - Substance Use History Substance History: Past History - Travel History Recent Travel in the [place] Within the Last 8 Weeks: No Recent Travel Out of the Country Within the Last 8 Weeks: No - Immunization History Tetanus Immunization: Unsure Hx Influenza Vaccine This Season: No Medications and Allergies Active Medications: Active Medications Acetaminophen (Tylenol) 650 mg PO Q4H PRN PRN Reason: Pain 1-5 or Temp >101F Last Admin: 09/17/18 09:51 Dose: 650 mg Al Hydrox/Mg Hydrox/Simethicone (Mag-Al Plus Susp Liq) 30 ml PO Q6H PRN PRN Reason: DYSPEPSIA Al Hydroxide/Mg Hydroxide (Milk Of Magnesia Liq) 30 ml PO Q12H PRN PRN Reason: Mild Constipation Last Admin: 08/10/18 16:23 Dose: 30 ml Carbamide Peroxide (Debrox 6.5% Otic Drops) 5 drops EACH EAR Q12HR [facility] Stop: 09/21/18 20:59 Clonidine HCl (Catapres) 0.1 mg PO Q6H PRN PRN Reason: SBP>180, DBP>100, HR>65 Diphenhydramine HCl (Benadryl) 50 mg PO HS PRN PRN Reason: INSOMNIA Last Admin: 09/14/18 22:19 Dose: 50 mg Divalproex Sodium (Depakote Er) 1,500 mg PO HS [facility] Last Admin: 09/16/18 20:30 Dose: 1,500 mg Divalproex Sodium (Depakote Er) 500 mg PO DAILY [facility] Last Admin: 09/17/18 09:47 Dose: 500 mg Hydroxyzine HCl (Atarax) 50 mg PO Q6H PRN PRN Reason: ANXIETY Last Admin: 09/16/18 20:29 Dose: 50 mg Lisinopril (Prinivil) 10 mg PO DAILY [facility] Last Admin: 09/17/18 09:47 Dose: Not Given Nicotine (Habitrol 21 Mg Patch.24 Hr) 1 patch T-DERMAL DAILY [facility] Last Admin: 09/17/18 09:48 Dose: 1 patch Patch Removal (Remove Old Patch) 0 each T-DERMAL DAILY [facility] Last Admin: 09/17/18 09:48 Dose: Not Given Risperidone (Risperdal) 3 mg PO BID [facility] Last Admin: 09/17/18 09:47 Dose: 3 mg Risperidone (Risperdal) 1 mg PO BID [facility] Last Admin: 09/17/18 09:46 Dose: 1 mg Senna/Docusate Sodium (Keke-Colace) 1 tab PO BID [facility] Last Admin: 09/17/18 09:48 Dose: 1 tab Allergies Allergy/AdvReac Type Severity Reaction Status Date / Time Unable to Assess Allergy Unknown Verified 12/14/17 21:55 No Known Allergies Allergy Unknown Uncoded 12/14/17 23:22 Home Medications Medication Instructions Recorded Confirmed Type Unable to Obtain Home Meds 07/30/18 07/30/18 History Exam Vital signs: Vital Signs 09/16/18 20:00 09/17/18 06:09 09/17/18 10:24 Temperature 99.4 F 98.3 F Pulse Rate 93 H 71 Respiratory Rate 18 16 14 Blood Pressure 122/81 104/61 Pulse Oximetry 97 97 Narrative: GENERAL: This is a well-nourished, well-developed patient, in no apparent distress. EARS: Hearing is grossly intact. Unable to visualize either right or left tympanic membrane as both right and left ear canals are blocked with cerumen CARDIOVASCULAR: Regular rate and rhythm RESPIRATORY: Clear to auscultation. Breath sounds equal bilaterally. GASTROINTESTINAL: Abdomen soft, non-tender, nondistended. Normal active bowel sounds MUSCULOSKELETAL: Extremities without clubbing, cyanosis, or edema. NEURO: Alert & Oriented. Moves all ext x4 Results - Labs CBC & Chem 7: 07/29/18 19:20 08/30/18 07:44 Assessment and Plan - Assessment (1) Impacted cerumen of both ears Code(s): H61.23 - Impacted cerumen, bilateral Status: Acute Plan: Schizophrenia Management per psychiatric team Hypertension Continue patient's lisinopril 10 mg Bilateral cerumen impaction Debrox otic 5 drops per ear twice a day times 4 days Constipation Continue Keke-Colace 1 tablet p.o. twice daily milk of magnesia as needed DVT prophylaxis patient is ambulatory Patient appears medically stable at this point will sign off if patient's condition changes or further assistance is needed please reconsult. Discussed with patient nursing and supervising physician Dr. Purcell
[2018-09-17] MEDS: Carbamide Peroxide 6.5% Otic Drops 15 ML Bottle EACH EAR SCH (21:15)
[2018-09-18] MEDS: Lisinopril 10 MG Tablet PO SCH (09:02)
[2018-09-18] MEDS: Divalproex 500 MG ER Tablet PO SCH ×2 (09:02→21:05)
[2018-09-18] MEDS: Senna/Docusate Sodium 8.6/50 MG Tablet PO SCH ×2 (09:03→21:05)
[2018-09-18] MEDS: Carbamide Peroxide 6.5% Otic Drops 15 ML Bottle EACH EAR SCH ×2 (09:04→21:08)
--- NOTE | 2018-09-18 10:56 | P.PNPSY ---
Subjective Chief Complaint: Unspeficied Psychosis Remarks: Record reviewed. Seen with nurse prince Lombardo his room. Patient is irritable today and focuses on his extended sty here. He is paranoid and states " why do people lie about me not taking my medication. They just want me to not go someplace else." He is religiously preoccupied as well. Sleeping well, eating well, medication compliant with no observed or reported medication side effects. Review of Systems All other systems reviewed negative except as stated in HPI Mental Status Examination Appearance: Appropriate Consciousness: Alert Orientation: Person, Place (At least) Motor Activity: Other (No motor abnormalities noted) Speech: Unremarkable Language: Adequate Fund of Knowledge: Inadequate Attention and Concentration: Easily distracted Memory: Impaired Mood: Angry (over being here), Other (Euthymic to somewhat restricted) Affect: Appropriate, Sad, Blunt, Other (Decreased range and intensity) Thought Process & Associations: Intact, Circumstantial (Improved) Thought Content: Appropriate, Delusional Hallucination Type: None Delusion Type: None, Paranoid (Better) Suicidal Ideation: No Suicidal Plan: No Suicidal Intention: No Homicidal Ideation: No Homicidal Plan: No Homicidal Intention: No Insight: Fair Judgment: Poor Assessment and Plan - Assessment (1) Paranoid type schizophrenia, chronic state Code(s): F20.0 - Paranoid schizophrenia Status: Acute - Plan Plan: Continue with current tx plan. Justification for Continued Inpatient Stay: Patietn at risk of decompensating at lower level of care. Request Healthcare Surrogate/Guardian Advocate?: Yes
[2018-09-18] MEDS: Acetaminophen 325 MG Tablet PO PRN (18:04)
[2018-09-19] MEDS: Carbamide Peroxide 6.5% Otic Drops 15 ML Bottle EACH EAR SCH ×2 (07:59→22:10)
[2018-09-19] MEDS: Divalproex 500 MG ER Tablet PO SCH ×2 (08:00→22:11)
[2018-09-19] MEDS: Senna/Docusate Sodium 8.6/50 MG Tablet PO SCH ×2 (08:00→22:11)
[2018-09-19] MEDS: Lisinopril 10 MG Tablet PO SCH (08:00)
[2018-09-19] MEDS: Acetaminophen 325 MG Tablet PO PRN ×2 (10:44→18:18)
--- NOTE | 2018-09-19 12:37 | P.PNPSY ---
Subjective Chief Complaint: Unspeficied Psychosis Remarks: Patient seen and examined with counselor in coverage for Dr. Yadav. Chart reviewed. Case discussed with staff. Case discussed in treatment team. On my examination today, the patient is calm and cooperative. He denies any SI, denies any HI. He denies any audiovisual hallucinations except he does say that he sees a "purple dot" from time to time. He denies any side effects from medications besides some mild drowsiness. No physical complaints. He says that he can go to stay with his mother, and the counselor will follow up on this. Vital Signs Temp Pulse Resp BP Pulse Ox 09/19/18 05:52 97.7 F 66 17 124/79 100 09/18/18 17:26 98.5 F 73 16 115/70 97 Laboratory Tests 07/29/18 07/29/18 08/29/18 19:20 19:20 05:39 WBC 10.3 Hgb 14.3 Plt Count 215 Sodium Potassium Chloride Carbon Dioxide BUN Creatinine Estimated GFR AST ALT Alkaline Phosphatase TSH 2.250 Valproic Acid 70 08/30/18 07:44 WBC Hgb Plt Count Sodium 132 L Potassium 4.2 Chloride 94 L Carbon Dioxide 29.9 BUN 11 Creatinine 0.72 Estimated GFR Greater than 89 AST 24 ALT 32 Alkaline Phosphatase 68 TSH Valproic Acid Labs reviewed. Review of Systems All other systems reviewed negative except as stated in HPI Mental Status Examination Appearance: Appropriate Consciousness: Alert Orientation: Person, Place (At least) Motor Activity: Other (No abnormal motor movements noted) Speech: Unremarkable Language: Adequate Fund of Knowledge: Inadequate Attention and Concentration: Adequate (Fair) Memory: Impaired Mood: Appropriate Affect: Blunt Thought Process & Associations: Intact Thought Content: Appropriate Hallucination Type: None (Except for "purple dot") Delusion Type: None Suicidal Ideation: No Suicidal Plan: No Suicidal Intention: No Homicidal Ideation: No Homicidal Plan: No Homicidal Intention: No Insight: Poor Judgment: Poor Assessment and Plan - Assessment (1) Paranoid type schizophrenia, chronic state Code(s): F20.0 - Paranoid schizophrenia Status: Acute - Plan Plan: Continue current psychotropic medications as ordered. Patient and I did discuss the possibility of long-acting injectable antipsychotic, but patient is opposed to this. Continue other medications and care as ordered. Continue to monitor on the inpatient unit. Justification for Continued Inpatient Stay: Risk for decompensation in less restrictive environment. Discharge Planning: Per Dr. Yadav. Request Healthcare Surrogate/Guardian Advocate?: Yes
--- NOTE | 2018-09-19 14:48 | P.TTN ---
- Patient Problems Problems: 1. Discharge planning 2. Medication compliance 3. Knowledge deficit 4. Lack of coping skills - Progress Toward Goals Provider Present: Dr. Elsa Yadav (08/28/2018, patient remains psychotic, Dr. Yadav is titrating medications, patient remains for further stabilization. August 30, 2018, patient remains labile, delusional, and in need of further stabilization. Patient may be approaching baseline, Dr. Yadav has advised that we continue seeking placement. September 04, 2018, Dr. Yadav reports the patient is not stable and is considering placement at the [facility] Dr. Tabitha Sepulveda (Covering for Dr. White will talk with patient.), Dr. Chi Barney Provider Input: 09/13: Pt is pending DC to [facility], no behavioral problems, coping with delays. 09/11/18: Still Meets Criteria. Eleanor from [facility] will meet with Patient to discuss possible placement. 08/09 patient on medications now, still psychotic. 08/04Patient has been uncooperative , decreased energy and requires further stabilization. 08/07 needs stabilization and placement as he was displaced from [place] and ended up in [facility]- family is assisting with an NESS and want referral faxed. [phone] patient needs further stabilization, Dr. Yadav is titrating medications, patient attends select groups, mostly isolates to himself and is seclusive to his room. Nurse(s) Present: Chance KUMARsubassembly supervisor Counselors Present: Toro Medel Jr., [facility] (Faxed clinicals to guardian home ASSISTED), Vika Bills, [facility] Psychiatric Therapist Input: 09/13: Pending placement or [facility]. : Manic/psychotic, internally stimulated, needs more time, needs placement. needs NESS, was displaced and unable to be stable out in community by self, mother and brother have found an ASSISTED , faxed referral, awaiting answer. Aurelia - Patient remins psychtic, delusional adn is uncooperative Group Spec/RT/OT/MEJIA Present: ROBERTO Everett Group Spec/RT/OT/MEJIA Input: 09/13: Pt attends select groups appropriately, he remains seclusive to self, progress in participation noted. : Pt has been attending select group activities lately. Isolates to self. easily overwhelmed. 08/09 still no group attendance- yells often, upset and aggitated. Patient does not attend groups. 08-14-2018 patient attends select groups but is mostly seclusive to his room. Clinical Coordinator: Cary Hamilton [facility] - Discharge Plan Other Pending placement or state hospital - Documentation Scribe: Paradise CAUSEY Teaching Recipient: Patient
[2018-09-20] MEDS: Lisinopril 10 MG Tablet PO SCH (08:46)
[2018-09-20] MEDS: Senna/Docusate Sodium 8.6/50 MG Tablet PO SCH ×2 (08:46→21:17)
[2018-09-20] MEDS: Divalproex 500 MG ER Tablet PO SCH ×2 (08:46→21:17)
[2018-09-20] MEDS: Acetaminophen 325 MG Tablet PO PRN (08:48)
[2018-09-20] MEDS: Carbamide Peroxide 6.5% Otic Drops 15 ML Bottle EACH EAR SCH ×2 (08:51→21:18)
--- NOTE | 2018-09-20 10:03 | P.PNPSY ---
Subjective Chief Complaint: Unspeficied Psychosis Remarks: Patient seen and examined with nurse in coverage for Dr. Yadav. Chart reviewed. Case discussed with nursing staff. No behavioral issues noted. On my examination today, the patient complains of feeling somewhat depressed. He says that his mood has been low since shortly before arrival here on the inpatient psychiatric unit. He does endorse some hopeless feelings but denies any worthless feelings. He denies any suicidal ideation. He says the Prozac has been helpful for this problem in the past. We discuss difficulties with discharge, and in particular collateral information obtained by the counselor that patient's family is presently unable to house him. Patient says that he would like to be referred to the [facility]. No psychotic material. No side effects from medications. No physical complaints. Vital Signs Temp Pulse Resp BP Pulse Ox 09/20/18 05:47 98.6 F 90 15 115/80 95 09/19/18 17:24 97.7 F 89 16 154/99 H 97 Labs reviewed. No new labs. Review of Systems All other systems reviewed negative except as stated in HPI Mental Status Examination Appearance: Appropriate Consciousness: Alert Orientation: Person, Place (At least) Motor Activity: Other (No motoric abnormalities noted) Speech: Unremarkable Language: Adequate Fund of Knowledge: Inadequate Attention and Concentration: Adequate (Fair) Memory: Impaired Mood: Other (Somewhat depressed) Affect: Blunt Thought Process & Associations: Intact Thought Content: Appropriate Hallucination Type: None Delusion Type: None Suicidal Ideation: No Suicidal Plan: No Suicidal Intention: No Homicidal Ideation: No Homicidal Plan: No Homicidal Intention: No Insight: Poor Judgment: Poor Assessment and Plan - Assessment (1) Paranoid type schizophrenia, chronic state Code(s): F20.0 - Paranoid schizophrenia Status: Acute (2) Adjustment disorder with depressed mood Code(s): F43.21 - Adjustment disorder with depressed mood Status: Acute - Plan Plan: Given that patient is on an adequate dose of mood stabilizer and level is therapeutic, I will initiate low-dose Prozac per his request for management of complaints of low mood. Prozac 10 mg daily with plans to titrate to effect and as tolerated. Continue other psychotropics as ordered. Continue to monitor on the inpatient unit. Continue other medications and care as ordered. Justification for Continued Inpatient Stay: Medication changes. Risk for decompensation in less restrictive environment. Discharge Planning: Counselor is pursuing voluntary state psychiatric hospital referral. Request Healthcare Surrogate/Guardian Advocate?: Yes
[2018-09-20] MEDS: FLUoxetine 10 MG Capsule PO SCH (13:24)
[2018-09-21 05:30] VITALS: BP 105/63; PULSE 62; RESP 18; TEMP 97.6; O2SAT 98
[2018-09-21] MEDS: Divalproex 500 MG ER Tablet PO SCH (08:04)
[2018-09-21] MEDS: Senna/Docusate Sodium 8.6/50 MG Tablet PO SCH (08:04)
[2018-09-21] MEDS: FLUoxetine 10 MG Capsule PO SCH (08:04)
[2018-09-21] MEDS: Lisinopril 10 MG Tablet PO SCH (08:05)
[2018-09-21] MEDS: Carbamide Peroxide 6.5% Otic Drops 15 ML Bottle EACH EAR SCH (08:13)
--- NOTE | 2018-09-21 11:56 | P.DSPSY ---
Psychiatry Discharge Summary Inpatient Psychiatric care?: Yes Advance Directives: No Mental Health Advance Directive: No Health Care Proxy: No - Admission Admission Date: July 30, 2018 16:37 - Admission Diagnosis (1) Paranoid type schizophrenia, chronic state Code(s): F20.0 - Paranoid schizophrenia Brief History: Patient is a 52-year-old white male comes here under a [place] act by the [facility]'s office dated 07/29/2018 at 1840 5 PM that document reviewed essentially is stating Cesilia pablo has been off his medication for the past 3 days Mr. Aguirre has also not had any food in the past 2 days. Patient seen and screened in the ED urine toxicology negative Depakote blood level of 6. At the present time patient sitting in the day room on 2500 patient seen with floor staff, chart reviewed, patient has been angry irritable insulting and profane with multiple staff members who come near him. It appears she was a long time resident of [facility] is a place in some other type facility. It appears she has not been happy there saying they have been feeling him "shit" he is also quite confused he is oriented to himself only at this time. He is vague about place and location time and situation. When asked about auditory hallucinations patient somewhat irritable there is significant thought blocking and distractibility as if he is responding to internal stimuli. When asked about suicidality he again becomes angry low denies suicidality and he denies homicidality. He is also B comments about his aunt not feeding him. He does not know if he is taking his medication. He does not know who prescribes his medication. At this time patient does not meet criteria for further inpatient psychiatric hospitalization I will do first opinion request second opinion I feel he does not have capacity thus I will ask for health care surrogate helpless treat this young man. Upon review of the EMR I sign of his last hospitalization he was prescribed Depakote ER 1750 mg at bedtime Resporal 3 mg twice daily and in Yang sustain a 156 mg. For now we will restart the Depakote at 1000 mg at bedtime, the Resporal 2 mg twice daily and will put the in Yang sustain on hold for now. Hope this be short stay we do need to research what his living situation was like otherwise placement may become problematic Tobacco Use In Past 30 Days: Yes How Often Do You Have a Drink Containing Alcohol: Never Hospital Course: Patient was admitted to a locked, inpatient psychiatric unit. A general medical consultation was obtained. Appropriate precautions were in place throughout patient's hospital stay. Patient was seen and examined on the unit by psychiatry and also visited by counselor. Psychotropic medications were adjusted. Patient tolerated medication changes well without side effects. Patient was offered long-acting injectable antipsychotic but declined to this. There was no evidence of suicidality or homicidality on the inpatient unit. Working with the patient, counselor has arranged for placement in assisted living setting. Per counselor, family is on board with assisted living placement for the patient. On the day of discharge: Patient seen and examined with nurse. Chart reviewed. Case discussed with nursing staff. No behavioral issues noted overnight. Case discussed with counselor who reports that assisted living facility can accept the patient today. On my examination today, the patient is requesting discharge to go to assisted living facility. He denies any suicidal or homicidal ideation, intent or plan. Mood is "okay" and improved from yesterday although affect remains blunted. I can elicit no severe depressive or hypomanic /manic symptoms. He denies any audiovisual hallucinations. I can elicit no delusional material. He denies any side effects from medications. He has no physical complaints. Suicide and violence risk assessment on day of discharge both suggest lower imminent risk from mental illness, and the patient's level of function is adequate for planned level of outpatient care. The patient has maximized benefit from this inpatient psychiatric hospital stay and will be discharged today with psychiatric follow-up as arranged by counselor. Patient is also to follow up with primary care. Patient is to return to psychiatric emergency room for any concerning symptoms as part of a general safety plan. - Discharge Discharge Date: 09/21/18 - Discharge Diagnosis (1) Paranoid type schizophrenia, chronic state Diagnosis: Principal (Stable) Code(s): F20.0 - Paranoid schizophrenia Status: Chronic (2) Adjustment disorder with depressed mood Diagnosis: Secondary Code(s): F43.21 - Adjustment disorder with depressed mood Status: Acute Discharge Disposition: Assisted Living Facility - Discharge Instructions Discharge Diet: Regular Diet Activities You Can Perform: Weight Bearing As Tolerat - Discharge Time > 30 minutes Mental Status Examination Appearance: Appropriate Consciousness: Alert Orientation: Person, Place (At least) Motor Activity: Other (No abnormal motor movements noted) Speech: Unremarkable Language: Adequate Fund of Knowledge: Inadequate Attention and Concentration: Adequate (Fair) Memory: Impaired Mood: Other ("Okay") Affect: Blunt Thought Process & Associations: Intact Thought Content: Appropriate Hallucination Type: None Delusion Type: None Suicidal Ideation: No Suicidal Plan: No Suicidal Intention: No Homicidal Ideation: No Homicidal Plan: No Homicidal Intention: No Insight: Poor (Chronic condition) Judgment: Poor (Chronic condition) Discharge/Advance Care Plan - Results Vital Signs: Last Vital Signs Temp 97.6 F 09/21/18 05:29 Pulse 62 09/21/18 05:29 Resp 18 09/21/18 05:29 BP 105/63 09/21/18 05:29 Pulse Ox 98 09/21/18 05:29 Lab Results: Laboratory Results Hemoglobin A1c 5.2 % (4.3-6.0) 07/31/18 07:00 Triglycerides 97 mg/dL (42-150) 07/31/18 07:00 Cholesterol 107 mg/dL (120-200) L 07/31/18 07:00 LDL Cholesterol, Calc 53 mg/dL (0-99) 07/31/18 07:00 HDL Cholesterol 34.9 mg/dL (40.0-60.0) L 07/31/18 07:00 TSH 2.250 uIU/mL (0.358-3.740) 07/29/18 19:20 Valproic Acid 70 mcg/mL (50-100) 08/29/18 05:39 Summary of Procedures: None done Pending Results: None - Medications Number of antipsychotic medications at discharge: 1 - Discharge Care Plan Goals to Promote Your Health: * To prevent worsening of your condition and complications * To maintain your health at the optimal level Directions to Meet Your Goals: Take your medications as prescribed Follow your dietary instruction Follow activity as directed Keep your appointments as scheduled Take your immunizations and boosters as scheduled If your symptoms worsen call your PCP, if no PCP go to Urgent Care Center or Emergency Room For 20/06 questions related to your inpatient stay or results of tests pending at discharge, please contact Dr. Filipe Sepulveda MD at Smoking is Dangerous to Your Health. Avoid second hand smoking
== END 2018-09-21 03:00 ==
LOC: NEPJ 19:30 → NEDA 07-30 16:37 → H250 07-30 18:21 → H260 08-06 20:50 → H270 08-09 10:30 → H260 08-11 14:33 → H270 08-13 10:40 → H260 08-31 11:36
PROVIDERS: ADMIT Psychiatry & Neurology Psychiatry; ATTEND Psychiatry & Neurology Psychiatry